=== PATIENT | male | born 1965 | race Caucasian/White ===

== ENCOUNTER 2016-07-08 05:34 | Emergency (ER) | payer MEDICARE, MEDICAID ==
--- NOTE | 2016-07-08 06:21 | ED ---
Abraham Galeano Benjamin, scribed for Rod Del Toro MD on 07/08/16 at 0608 . Laceration/Wound HPI - HPI Summary HPI Summary: 50yo male presents with a small laceration above his right eyebrow from falling off his bed this morning. Hx includes MR,HTN, Raynauds disease, spastic quadriplegia, and seizures. - History of Current Complaint Stated Complaint: FALL Time Seen by Provider: 07/08/16 05:43 Hx Obtained From: Patient Onset/Duration: Still Present Aggravating: Nothing Alleviating: Nothing Timing: Constant Onset Severity: Mild Current Severity: Mild Pain Intensity: 4 Pain Scale Used: 0-10 Numeric Associated Signs & Symptoms: Negative - Allergy/Home Medications Allergies/Adverse Reactions: Allergies Allergy/AdvReac Type Severity Reaction Status Date / Time No Known Allergies Allergy Verified 07/08/16 05:55 PMH/Surg Hx/FS Hx/Imm Hx Infectious Disease History: No Infectious Disease History: Denies: Traveled Outside the [place] in Last 30 Days - Family History Known Family History: Negative: Cardiac Disease, Hypertension Review of Systems Constitutional: Negative Eyes: Negative ENT: Negative Cardiovascular: Negative Respiratory: Negative Gastrointestinal: Negative Genitourinary: Negative Musculoskeletal: Negative Positive: Other - right eyebrow lac Neurological: Negative Psychological: Normal All Other Systems Reviewed And Are Negative: Yes Physical Exam Triage Information Reviewed: Yes Vital Signs On Initial Exam: Initial Vitals Temp Pulse Resp BP Pulse Ox 97.8 F 78 18 124/80 99 07/08/16 05:46 07/08/16 05:46 07/08/16 05:46 07/08/16 05:46 07/08/16 05:46 Vital Signs Reviewed: Yes Completion Of Physical Exam Limited Due To: Dementia, Altered Mental Status Appearance: Positive: Well-Appearing Skin: Positive: Warm, Other - superficial lac above rt eye Head/Face: Positive: Normal Head/Face Inspection Eyes: Positive: FRAN ENT: Positive: Hearing grossly normal Respiratory/Lung Sounds: Positive: Breath Sounds Present Musculoskeletal: Positive: Strength/ROM Intact Diagnostics - Vital Signs Vital Signs Temp Pulse Resp BP Pulse Ox 07/08/16 05:46 97.8 F 78 18 124/80 99 - Laboratory Lab Statement: Any lab studies that have been ordered have been reviewed, and results considered in the medical decision making process. - CT CT Brain CT Interpretation: No Acute Changes - grossly normal CT Interpretation Completed By: ED Physician Laceration Repair Course/Dx - Clinical Impression Provider Diagnoses: Head injury, Laceration of head Discharge - Discharge Plan Condition: Stable Disposition: HOME Patient Education Materials: Laceration (ED), Head Injury (ED) Referrals: Non Staff,Doctor [Primary Care Provider] - The documentation as recorded by the Abraham kumar Benjamin accurately reflects the service I personally performed and the decisions made by , Rod Del Toro MD.
[2016-07-08 06:53] VITALS: BP 128/78
--- NOTE | 2016-07-08 07:59 | RAD ---
INDICATION: Head injury. COMPARISON: There are no prior studies available for comparison. TECHNIQUE: Contiguous axial sections of the brain were obtained from the skull base to the vertex without contrast. The exam is extremely limited due to motion artifact. Large regions of the brain are not imaged on this study. FINDINGS: No mass effect or hemorrhage is seen on the portion of the brain imaged. IMPRESSION: EXTREMELY LIMITED STUDY NOTED ABOVE.
== END 2016-07-08 06:52 | disposition home or self-care (01) ==
LOC: ED 05:34 → EDBD 05:34 → MERGE 05:34 → ED 06:52
DX: S01.111A Laceration without foreign body of right eyelid and periocular area, initial encounter (principal); S09.90XA Unspecified injury of head, initial encounter; W06.XXXA Fall from bed, initial encounter; Y93.9 Activity, unspecified; Y92.9 Unspecified place or not applicable; Y99.9 Unspecified external cause status
CPT/HCPCS: 70450; 99282

== ENCOUNTER 2016-07-25 16:09 | Emergency (ER) | payer MEDICARE ==
[2016-07-25 18:43] VITALS: BP 133/77
[2016-07-25 20:48] LABS: Hematocrit 35 % (42-52); Mean Corpuscular HGB Conc 34 g/dl (31-36); Mean Corpuscular Hemoglobin 35 pg (27-31); Mean Corpuscular Volume 102 fL (80-94); Mean Platelet Volume 7 um3 (7.4-10.4); Red Blood Count 3.45 10^6/ul (4.0-5.4); Red Cell Distribution Width 14 % (10.5-15); White Blood Count 10.9 10^3/ul (3.5-10.8)
[2016-07-25 21:04] LABS: Albumin 4.4 g/dL (3.2-5.2); BUN/Creatinine Ratio 21.4 (8-20); C Reactive Protein 12.77 mg/L (< 5.00); Calcium 9.9 mg/dL (8.6-10.3); EGFR African American 153.5 (>60); EGFR Non-African American 119.4 (>60); Potassium 4.3 mmol/L (3.5-5.0); Total Bilirubin 0.3 mg/dL (0.2-1.0); Total Protein 7.4 g/dL (6.4-8.9)
[2016-07-25 21:45] LABS: TSH (Thyroid Stimulating Horm) 1.09 mcIU/mL (0.34-5.60)
[2016-07-25 21:52] LABS: Carbamazepine 12.5 mcg/mL (4.0-12.0); Lithium 0.96 mmol/L (0.6-1.2)
--- NOTE | 2016-07-25 23:25 | ED ---
Mian Galeano Soohyun, scribed for Johnny Peralta MD on 07/25/16 at 2012 . Neurological HPI - HPI Summary HPI Summary: LEVEL 5 CAVEAT secondary to MR. HPI is obtained from metal grinder present at bedside. Pt is [facility]. This 51 y/o male presents to ED for intermittent seizure activity today around 1200 PM. Cloth Examiner did not witness today's episode, but reports the latest episode lasting 10 seconds a week ago. Cloth Examiner also reports recent med change involving dose increase of [place] Hot[place] and Seroquel in May and decreased dose of Seroquel 2 days ago. Pt is currently pending lithium level evaluation. PMHx is significant for cerebral palsy, MR, and known seizure. Pt is currently on lamotrigine, carbamazapine, triazolam, and lorazepam. NKDA. R/b/a of plan of care involving IV access is discussed with metal grinder. Pt is known to be combative at times, and metal grinder is not confident if pt will be able to tolerate the IV stick at this moment. - History of Current Complaint Chief Complaint: EDSeizure Stated Complaint: SEIZURE ACTIVITY Hx Obtained From: Family/Cloth Examiner Onset/Duration: Sudden Onset Timing: Intermittent Episodes Lasting: - seconds Onset Severity: Mild Current Severity: None Number of Seizures: 1 Neurological Deficit Location: Generalized Pain Intensity: 0 Aggravating: Nothing Alleviating: Spontanious Resolution Associated Signs and Symptoms: Positive: Negative. 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, PICA - Surgical History Surgery Procedure, Year, and Place: bilat hip - Immunization History Date of Tetanus Vaccine: Unk Date of Influenza Vaccine: Unk Infectious Disease History: 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 Denies: Hx Clostridium Difficile, Hx Human Immunodeficiency Virus (HIV), Hx of Known/Suspected MRSA, Hx Shingles, Hx Tuberculosis, Hx Known/Suspected VRE, Hx Known/Suspected VRSA, History Other Infectious Disease, Traveled Outside the [place] in Last 30 Days - Family History Known Family History: Negative: Cardiac Disease, Hypertension - Social History Alcohol Use: None Substance Use Type: Reports: None Smoking Status (MU): Never Smoked Tobacco Review of Systems - ROS Summary Review of Systems Summary: LEVEL 5 CAVEAT secondary to Negative: Fever Negative: Abdominal Pain Neurological: Other - positive for an intermittent seizure episode. Currently resolved. Negative: Anxious, Depressed All Other Systems Reviewed And Are Negative: No Physical Exam Triage Information Reviewed: Yes Vital Signs On Initial Exam: Initial Vitals Temp Pulse Resp BP Pulse Ox 97.6 F 66 16 145/73 100 07/25/16 16:10 07/25/16 16:10 07/25/16 16:10 07/25/16 16:10 07/25/16 16:10 Vital Signs Reviewed: Yes Completion Of Physical Exam Limited Due To: Other - LEVEL 5 CAVEAT secondary to MR Appearance: Positive: Well-Appearing, No Pain Distress Skin: Positive: Warm, Skin Color Reflects Adequate Perfusion, Dry Eyes: Positive: EOMI, FRAN Neck: Positive: Supple, Nontender Respiratory/Lung Sounds: Positive: Clear to Auscultation, Breath Sounds Present Cardiovascular: Positive: RRR, Pulses are Symmetrical in both Upper and Lower Extremities Abdomen Description: Positive: Nontender, No Organomegaly, Soft Musculoskeletal: Positive: Strength/ROM Intact - WALTER Neurological: Positive: Sensory/Motor Intact - WALTER, Alert, Oriented to Person Place, Time Psychiatric: Positive: Affect/Mood Appropriate AVPU Assessment: Alert Diagnostics - Vital Signs Vital Signs Temp Pulse Resp BP Pulse Ox 07/25/16 18:42 97.9 F 63 16 133/77 100 07/25/16 17:19 98.2 F 68 18 139/63 99 07/25/16 16:10 97.6 F 66 16 145/73 100 - Laboratory Lab Results: Lab Results 07/25/16 07/25/16 Range/Units 20:35 20:35 WBC 10.9 H (3.5-10.8) 10^3/ul RBC 3.45 L (4.0-5.4) 10^6/ul Hgb 12.0 L (14.0-18.0) g/dl Hct 35 L (42-52) % MCV 102 H (80-94) fL MCH 35 H (27-31) pg MCHC 34 (31-36) g/dl RDW 14 (10.5-15) % Plt Count 379 (150-450) 10^3/ul MPV 7 L (7.4-10.4) um3 Neut % (Auto) 83.2 H (38-83) % Lymph % (Auto) 9.5 L (25-47) % [place] % (Auto) 6.6 (1-9) % Eos % (Auto) 0.6 (0-6) % Baso % (Auto) 0.1 (0-2) % Absolute Neuts (auto) 9.0 H (1.5-7.7) 10^3/ul Absolute Lymphs (auto) 1.0 (1.0-4.8) 10^3/ul Absolute Monos (auto) 0.7 (0-0.8) 10^3/ul Absolute Eos (auto) 0.1 (0-0.6) 10^3/ul Absolute Basos (auto) 0 (0-0.2) 10^3/ul Absolute Nucleated RBC 0 10^3/ul Nucleated RBC % 0 Sodium 139 (133-145) mmol/L Potassium 4.3 (3.5-5.0) mmol/L Chloride 104 (101-111) mmol/L Carbon Dioxide 31 (22-32) mmol/L Anion Gap 4 (2-11) mmol/L BUN 15 (6-24) mg/dL Creatinine 0.70 (0.67-1.17) mg/dL Est GFR ( Amer) 153.5 (>60) Est GFR (Non-Af Amer) 119.4 (>60) BUN/Creatinine Ratio 21.4 H (8-20) Glucose 111 H (70-100) mg/dL Calcium 9.9 (8.6-10.3) mg/dL Total Bilirubin 0.30 (0.2-1.0) mg/dL AST 15 (13-39) U/L ALT 19 (7-52) U/L Alkaline Phosphatase 83 (34-104) U/L C-Reactive Protein 12.77 H (< 5.00) mg/L Total Protein 7.4 (6.4-8.9) g/dL Albumin 4.4 (3.2-5.2) g/dL Globulin 3.0 (2-4) g/dL Albumin/Globulin Ratio 1.5 (1-3) Lipase 28 (11.0-82.0) U/L TSH 1.09 (0.34-5.60) mcIU/mL Carbamazepine 12.5 H (4.0-12.0) mcg/mL [place] 0.96 (0.6-1.2) mmol/L Result Diagrams: 07/25/16 20:35 07/25/16 20:35 Lab Statement: Any lab studies that have been ordered have been reviewed, and results considered in the medical decision making process. Re-Evaluation - Re-Evaluation First Eval Re-Evaluation Time: 22:33 Comment: MD in room to update metal grinder on bloodwork, lithium level, and carbamazepine level. The plan of care involving evaluation of lamotrigine level is discussed, and metal grinder is agreeable at this time. Course/Dx - Course Assessment/Plan: WELL IN ED. PATIENT DID NOT PROVIDE A URINE SPECIMEN. NO SIGNS OF UTI. DISCHARGE HOME STABLE. - Diagnoses Provider Diagnoses: Epilepsy Discharge - Discharge Plan Condition: Stable Disposition: HOME Patient Education Materials: Epilepsy (ED) Referrals: Rony Selby MD [Primary Care Provider] - Additional Instructions: FOLLOW UP WITH YOUR DOCTOR. RETURN TO THE EMERGENCY DEPARTMENT FOR ANY WORSENING OF YOUR CONDITION OR QUESTIONS OR CONCERNS. The documentation as recorded by the Mian kumar Soohyun accurately reflects the service I personally performed and the decisions made by me, Johnny Peralta MD.
== END 2016-07-25 23:35 | disposition home or self-care (01) ==
LOC: ED 16:09
DX: G40.919 Epilepsy, unspecified, intractable, without status epilepticus (principal)
CPT/HCPCS: 36415; 80053; 80156; 80175; 80178; 83690; 84443; 85025; 86140; 99282

== ENCOUNTER 2016-10-14 15:15 | Emergency (ER) | payer MEDICARE, MEDICAID ==
[2016-10-14] MEDS ORDERED: NS 0.9% 1000 ML* 1,000 ML IV ONE (16:11)
[2016-10-14 16:51] LABS: Hematocrit 26 % (42-52); Hemoglobin 8.4 g/dl (14.0-18.0); Mean Corpuscular HGB Conc 33 g/dl (31-36); Mean Corpuscular Hemoglobin 33 pg (27-31); Mean Corpuscular Volume 101 fL (80-94); Mean Platelet Volume 6 um3 (7.4-10.4); Red Blood Count 2.54 10^6/ul (4.0-5.4); Red Cell Distribution Width 14 % (10.5-15)
[2016-10-14 17:05] LABS: Albumin 4.1 g/dL (3.2-5.2); BUN/Creatinine Ratio 16.9 (8-20); C Reactive Protein 6.79 mg/L (< 5.00); Calcium 9.5 mg/dL (8.6-10.3); EGFR African American 137.5 (>60); EGFR Non-African American 106.9 (>60); Globulin 2.4 g/dL (2-4); Potassium 4.4 mmol/L (3.5-5.0); Total Bilirubin 0.2 mg/dL (0.2-1.0); Total Protein 6.5 g/dL (6.4-8.9)
[2016-10-14 18:21] VITALS: BP 102/41
--- NOTE | 2016-10-15 09:15 | ED ---
Pa Galeano Alfonso, scribed for Jabari Culp MD on 10/14/16 at 1620 . GI/ HPI - HPI Summary HPI Summary: Level 5 caveat due to MR. This patient is a 51 y.o male presenting to [facility] c/o excessive rectal bleeding since last week. His home care consultant reports he dropped about 5 cc of blood in stool this morning. His home care consultant reports he is in pain. Denies a BM today. Sx aggravated and alleviated by nothing. Last week he had an internal hemorrhoid problem and followed up with his PCP. His home care consultant reports the PCP blood work showed anemia. He has limited verbal ability and MR. - History of Current Complaint Chief Complaint: EDBleedingDisorder Time Seen by Provider: 10/14/16 15:54 Stated Complaint: RECTAL BLEEDING Hx Obtained From: Family/Spout Liner Hx From Patient Unobtainable Due To: Other - MR Onset/Duration: Started Weeks Ago, Still Present Timing: Constant Severity: Moderate Current Severity: Moderate Vaginal Bleeding Description: Bright Red Location of Pain: Rectal Pain Characteristics: Unable to describe Associated Signs and Symptoms: Positive: Blood w/Stool, Other: - Internal Hemorrhoids Aggravating Factor(s): Nothing Alleviating Factor(s): Nothing - Allergy/Home Medications Allergies/Adverse Reactions: Allergies Allergy/AdvReac Type Severity Reaction Status Date / Time No Known Allergies Allergy Verified 11/03/15 15:30 PMH/Surg Hx/FS Hx/Imm Hx Endocrine/Hematology History: Denies: Hx Anticoagulant Therapy Cardiovascular History: Reports: Hx Hypertension Neurological History: Reports: Hx Seizures - tegratol, Other Neuro Impairments/ Disorders - CP Psychiatric History: Reports: Other Psychiatric Issues/Disorders - 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, PICA - Surgical History Surgery Procedure, Year, and Place: bilat hip - Immunization History Date of Tetanus Vaccine: Unk Date of Influenza Vaccine: Unk Infectious Disease History: 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 Denies: Hx Clostridium Difficile, Hx Human Immunodeficiency Virus (HIV), Hx of Known/Suspected MRSA, Hx Shingles, Hx Tuberculosis, Hx Known/Suspected VRE, Hx Known/Suspected VRSA, History Other Infectious Disease, Traveled Outside the [place] in Last 30 Days - Family History Known Family History: Negative: Cardiac Disease, Hypertension - Social History Alcohol Use: None Substance Use Type: Reports: None Smoking Status (MU): Never Smoked Tobacco Review of Systems - ROS Summary Review of Systems Summary: Level 5 caveat due to MR. Positive: other - Excessive rectal bleeding All Other Systems Reviewed And Are Negative: No Physical Exam - Summary Physical Exam Summary: Level 5 caveat due to MR. VITAL SIGNS: Reviewed. GENERAL: Patient is a well-developed and nourished male who is lying comfortable in the stretcher. Patient is not in any acute distress. Mental retardation. HEAD AND FACE: Normocephalic/atraumatic EYES: PERRLA EARS: Hearing grossly intact. MOUTH: Dry oral mucosa. NECK: Supple, trachea is midline, no adenopathy, no JVD LUNGS: Clear to auscultation bilaterally. No wheezing or crackles. CVS: Regular rate and rhythm, S1 and S2 present, no murmurs or gallops appreciated. ABDOMEN: Soft, non-tender. RECTAL: Positive gross blood. EXTREMITIES: No edema noted. NEURO: Alert and not oriented. SKIN: Dry and warm Triage Information Reviewed: Yes Vital Signs On Initial Exam: Initial Vitals Temp Pulse Resp BP Pulse Ox 98.1 F 86 18 127/67 98 10/14/16 15:23 10/14/16 15:23 10/14/16 15:23 10/14/16 15:23 10/14/16 15:23 Vital Signs Reviewed: Yes - [place] Coma Scale Coma Scale Total: 15 Diagnostics - Vital Signs Vital Signs Temp Pulse Resp BP Pulse Ox 10/14/16 15:23 98.1 F 86 18 127/67 98 - Laboratory Result Diagrams: 10/14/16 16:40 10/14/16 16:40 Lab Statement: Any lab studies that have been ordered have been reviewed, and results considered in the medical decision making process. GIGU Course/Dx - Course Assessment/Plan: Test results show chronic anemia although it is better than 09/22. The patient is not bleeding profusely. I discussed the case with Dr. Ding who recommends for the patient to be discharged home with follow up tomorrow morning at Dr. Acosta office for further assessment and plan. He is hemodynamically stable and discharged to the shelter. Instructed to return to the ED if the bleeding begins. They understand and agree. - Diagnoses Provider Diagnoses: Internal bleeding hemorrhoids - Physician Notifications Discussed Care Of Patient With: Rod Ding Time Discussed With Above Provider: 18:03 Instructed by Provider To: Have Pt Call For Appt. - Recommends patient be discharged home to follow up at Dr. Morris's office. Discharge - Discharge Plan Condition: Stable Disposition: HOME Patient Education Materials: Rectal Bleeding (ED) Referrals: Rony Selby MD [Primary Care Provider] - 3 Days Roderick Morris MD [Medical Doctor] - 3 Days The documentation as recorded by the Pa kumar Alfonso accurately reflects the service I personally performed and the decisions made by , Jabari Culp MD.
== END 2016-10-14 18:24 | disposition home or self-care (01) ==
LOC: ED 15:15
DX: K62.5 Hemorrhage of anus and rectum (principal)
CPT/HCPCS: 36415; 80053; 82270; 85025; 86140; 99282

== ENCOUNTER 2016-10-16 22:19 | Emergency (ER) | payer MEDICARE, MEDICAID ==
[2016-10-16] MEDS ORDERED: NS 0.9% 1000 ML* 1,000 ML IV ONE (23:11)
[2016-10-17 01:13] LABS: Hematocrit 22 % (42-52); Hemoglobin 7.3 g/dl (14.0-18.0); Mean Corpuscular HGB Conc 33 g/dl (31-36); Mean Corpuscular Hemoglobin 33 pg (27-31); Mean Corpuscular Volume 100 fL (80-94); Mean Platelet Volume 7 um3 (7.4-10.4); Red Cell Distribution Width 14 % (10.5-15); White Blood Count 11.6 10^3/ul (3.5-10.8)
[2016-10-17 01:30] LABS: Albumin 3.6 g/dL (3.2-5.2); BUN/Creatinine Ratio 27.9 (8-20); Carbamazepine 12.7 mcg/mL (4.0-12.0); EGFR African American 179.9 (>60); EGFR Non-African American 139.9 (>60); Globulin 2.5 g/dL (2-4); Lithium 1.19 mmol/L (0.6-1.2); Magnesium 2.3 mg/dL (1.9-2.7); Potassium 4.2 mmol/L (3.5-5.0); Total Bilirubin 0.2 mg/dL (0.2-1.0); Total Protein 6.1 g/dL (6.4-8.9)
[2016-10-17 03:54] LABS: Urine Bacteria Absent (Absent); Urine Bilirubin Negative (Negative); Urine Glucose Negative (Negative); Urine Nitrite Negative (Negative)
--- NOTE | 2016-10-17 04:26 | ED ---
Juan José Galeano Rebecca, scribed for Giovanni Quick MD on 10/16/16 at 2315 . Neurological HPI - HPI Summary HPI Summary: Pt is a 51 y/o M BIBA from [facility] who presents to ED s/p episode of unresponsiveness. Health care worker reports at 2120 he suddenly became unresponsive. Episode lasted for 20 minutes. When asked about episode as compared with prior seizures, reports "usually he makes a duck noise kind of and this evening he was just kind of out of it." Sx resolved spontaneously upon EMS arrival, aggravated by nothing. Denies fever, vomiting, cough. Health care worker is unsure of whether he had experienced a seizure tonight and does not know what type he typically experiences. She reports he is acting at his baseline currently. PMHx seizures. No PMHx UTI, PNA. Takes Somers , Lamictal, Tegretol. Level 5 caveat due to MR. - History of Current Complaint Chief Complaint: EDSeizure Stated Complaint: UNRESPONSIVE Time Seen by Provider: 10/16/16 22:59 Hx Obtained From: Family/Tractor Mechanic - Tractor Mechanic Onset/Duration: Sudden Onset, Resolved Timing: Intermittent Episodes Lasting: - 1 episode lasting 20 minutes Number of Seizures: 1 - Healht care worker unsure if episode was seizure Pain Intensity: 0 Pain Scale Used: 0-10 Numeric Character: Responsiveness - Unresponsive for 20 minutes Episode Lasting: Seconds/Minutes - 20 minutes Number of Episodes: 1 Aggravating: Nothing Alleviating: Spontanious Resolution Associated Signs and Symptoms: Negative: Nausea/Vomiting, Fever - Allergy/Home Medications Allergies/Adverse Reactions: Allergies Allergy/AdvReac Type Severity Reaction Status Date / Time No Known Allergies Allergy Verified 11/03/15 15:30 PMH/Surg Hx/FS Hx/Imm Hx Endocrine/Hematology History: Denies: Hx Anticoagulant Therapy Cardiovascular History: Reports: Hx Hypertension Neurological History: Reports: Hx Seizures - tegratol, Other Neuro Impairments/ Disorders - CP Psychiatric History: Reports: Other Psychiatric Issues/Disorders - 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, PICA - Surgical History Surgery Procedure, Year, and Place: bilat hip - Immunization History Date of Tetanus Vaccine: Unk Date of Influenza Vaccine: Unk Infectious Disease History: No Infectious Disease History: 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 Denies: Hx Clostridium Difficile, Hx Human Immunodeficiency Virus (HIV), Hx of Known/Suspected MRSA, Hx Shingles, Hx Tuberculosis, Hx Known/Suspected VRE, Hx Known/Suspected VRSA, History Other Infectious Disease, Traveled Outside the [place] in Last 30 Days - Family History Known Family History: Negative: Cardiac Disease, Hypertension - Social History Alcohol Use: None Substance Use Type: Reports: None Smoking Status (MU): Never Smoked Tobacco Review of Systems Negative: Fever Negative: Cough Negative: Vomiting Neurological: Other - One 20 minute episode of unresponsiveness 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 The patient is well-nourished in no acute distress and in no acute pain. The skin is warm and dry and skin color reflects adequate perfusion. HEENT: The head is normocephalic and atraumatic. The pupils are equal and reactive. The conjunctivae are clear and without drainage. Nares are patent and without drainage. Mouth reveals dry mucous membranes and the throat is without erythema and exudate. The external ears are intact. The ear canals are patent and without drainage. The tympanic membranes are intact. Neck is supple with full range of motion and non-tender. There are no carotid bruits. There is no neck vein distension. Respiratory: Chest is non-tender. Lungs are clear to auscultation and breath sounds are symmetrical and equal. Cardiovascular: Hear is regular rate and rhythm. There is no murmur or rub auscultated. There is no peripheral edema and pulses are symmetrical and equal. Abdomen: The abdomen is soft and non-tender. Musculoskeletal: There is no back pain noted. Extremities are intact. There is good capillary refill and good skin turgor. There is no peripheral edema or calf tenderness elicited. Neurological: Patient is alert and oriented to person, place and time. The patient has symmetrical motor strength in all four extremities. Psychiatric: The patient does not talk, does not follow commands and does not verbalize. Triage Information Reviewed: Yes Vital Signs On Initial Exam: Initial Vitals Temp Pulse Resp BP Pulse Ox 98.6 F 80 20 144/72 95 10/16/16 22:21 10/16/16 22:21 10/16/16 22:21 10/16/16 22:21 10/16/16 22:21 Vital Signs Reviewed: Yes - [place] Coma Scale Coma Scale Total: 15 Diagnostics - Vital Signs Vital Signs Temp Pulse Resp BP Pulse Ox 10/16/16 23:00 117/64 10/16/16 22:57 73 97 10/16/16 22:56 105/59 10/16/16 22:21 98.6 F 80 20 144/72 95 - Laboratory Lab Results: Lab Results 10/17/16 10/17/16 10/17/16 Range/Units 01:00 01:00 01:00 WBC 11.6 H (3.5-10.8) 10^3/ul RBC 2.20 L (4.0-5.4) 10^6/ul Hgb 7.3 L (14.0-18.0) g/dl Hct 22 L (42-52) % MCV 100 H (80-94) fL MCH 33 H (27-31) pg MCHC 33 (31-36) g/dl RDW 14 (10.5-15) % Plt Count 376 (150-450) 10^3/ul MPV 7 L (7.4-10.4) um3 Neut % (Auto) 83.4 H (38-83) % Lymph % (Auto) 7.8 L (25-47) % [place] % (Auto) 7.8 (1-9) % Eos % (Auto) 0.5 (0-6) % Baso % (Auto) 0.5 (0-2) % Absolute Neuts (auto) 9.6 H (1.5-7.7) 10^3/ul Absolute Lymphs (auto) 0.9 L (1.0-4.8) 10^3/ul Absolute Monos (auto) 0.9 H (0-0.8) 10^3/ul Absolute Eos (auto) 0.1 (0-0.6) 10^3/ul Absolute Basos (auto) 0.1 (0-0.2) 10^3/ul Absolute Nucleated RBC 0 10^3/ul Nucleated RBC % 0 INR (Anticoag Therapy) 0.96 (0.89-1.11) Sodium 138 (133-145) mmol/L Potassium 4.2 (3.5-5.0) mmol/L Chloride 108 (101-111) mmol/L Carbon Dioxide 26 (22-32) mmol/L Anion Gap 4 (2-11) mmol/L BUN 17 (6-24) mg/dL Creatinine 0.61 L (0.67-1.17) mg/dL Est GFR ( Amer) 179.9 (>60) Est GFR (Non-Af Amer) 139.9 (>60) BUN/Creatinine Ratio 27.9 H (8-20) Glucose 139 H (70-100) mg/dL Lactic Acid (0.5-2.0) mmol/L Calcium 9.0 (8.6-10.3) mg/dL Magnesium 2.3 (1.9-2.7) mg/dL Total Bilirubin 0.20 (0.2-1.0) mg/dL AST 22 (13-39) U/L ALT 27 (7-52) U/L Alkaline Phosphatase 87 (34-104) U/L Total Protein 6.1 L (6.4-8.9) g/dL Albumin 3.6 (3.2-5.2) g/dL Globulin 2.5 (2-4) g/dL Albumin/Globulin Ratio 1.4 (1-3) Urine Color Urine Appearance Urine pH (5-9) Ur Specific [place] (1.010-1.030) Urine Protein (Negative) Urine Ketones (Negative) Urine Blood (Negative) Urine Nitrate (Negative) Urine Bilirubin (Negative) Urine Urobilinogen (Negative) Ur Leukocyte Esterase (Negative) Urine WBC (Auto) (Absent) Urine RBC (Auto) (Absent) Ur Squamous Epith Cells (Absent) Urine Bacteria (Absent) Urine Glucose (Negative) Carbamazepine 12.7 H (4.0-12.0) mcg/mL Somers 1.19 (0.6-1.2) mmol/L 10/17/16 10/17/16 Range/Units 01:00 03:12 WBC (3.5-10.8) 10^3/ul RBC (4.0-5.4) 10^6/ul Hgb (14.0-18.0) g/dl Hct (42-52) % MCV (80-94) fL MCH (27-31) pg MCHC (31-36) g/dl RDW (10.5-15) % Plt Count (150-450) 10^3/ul MPV (7.4-10.4) um3 Neut % (Auto) (38-83) % Lymph % (Auto) (25-47) % [place] % (Auto) (1-9) % Eos % (Auto) (0-6) % Baso % (Auto) (0-2) % Absolute Neuts (auto) (1.5-7.7) 10^3/ul Absolute Lymphs (auto) (1.0-4.8) 10^3/ul Absolute Monos (auto) (0-0.8) 10^3/ul Absolute Eos (auto) (0-0.6) 10^3/ul Absolute Basos (auto) (0-0.2) 10^3/ul Absolute Nucleated RBC 10^3/ul Nucleated RBC % INR (Anticoag Therapy) (0.89-1.11) Sodium (133-145) mmol/L Potassium (3.5-5.0) mmol/L Chloride (101-111) mmol/L Carbon Dioxide (22-32) mmol/L Anion Gap (2-11) mmol/L BUN (6-24) mg/dL Creatinine (0.67-1.17) mg/dL Est GFR ( Amer) (>60) Est GFR (Non-Af Amer) (>60) BUN/Creatinine Ratio (8-20) Glucose (70-100) mg/dL Lactic Acid 1.2 (0.5-2.0) mmol/L Calcium (8.6-10.3) mg/dL Magnesium (1.9-2.7) mg/dL Total Bilirubin (0.2-1.0) mg/dL AST (13-39) U/L ALT (7-52) U/L Alkaline Phosphatase (34-104) U/L Total Protein (6.4-8.9) g/dL Albumin (3.2-5.2) g/dL Globulin (2-4) g/dL Albumin/Globulin Ratio (1-3) Urine Color Yellow Urine Appearance Cloudy Urine pH 6.0 (5-9) Ur Specific [place] 1.026 (1.010-1.030) Urine Protein Negative (Negative) Urine Ketones Negative (Negative) Urine Blood 1+ H (Negative) Urine Nitrate Negative (Negative) Urine Bilirubin Negative (Negative) Urine Urobilinogen Negative (Negative) Ur Leukocyte Esterase Trace H (Negative) Urine WBC (Auto) Trace(0-5/hpf) (Absent) Urine RBC (Auto) Trace(0-2/hpf) (Absent) Ur Squamous Epith Cells Present H (Absent) Urine Bacteria Absent (Absent) Urine Glucose Negative (Negative) Carbamazepine (4.0-12.0) mcg/mL Somers (0.6-1.2) mmol/L Result Diagrams: 10/17/16 01:00 10/17/16 01:00 Lab Statement: Any lab studies that have been ordered have been reviewed, and results considered in the medical decision making process. Re-Evaluation - Re-Evaluation First Eval Re-Evaluation Time: 04:13 Change: Unchanged Comment: Reviewed labs with the pt's health care worker. Course/Dx - Course Assessment/Plan: Pt is a 51 y/o M BIBA from [facility] who presents to ED s/p episode of unresponsiveness at 2120 that lasted for 20 minutes. Denies fever, vomiting, cough. Health care worker is unsure of whether he had experienced a seizure tonight and does not know what type he typically experiences. She reports he is acting at his baseline currently. PMHx seizures. No PMHx UTI, PNA. Takes Somers, Lamictal, Tegretol. Level 5 caveat due to MR. Pt received Ns IV in the course of the ED. Pt will be D/C with Dx of rectal bleed, anemia and seizure disorder. - Differential Dx Differential Diagnoses Neuro: Positive: Seizure Disorder, Other - rectal bleed, uti, - Diagnoses Provider Diagnoses: Rectal bleed, Seizure disorder, Anemia Discharge - Discharge Plan Condition: Stable Disposition: HOME Patient Education Materials: Rectal Bleeding (ED), Anemia (ED), Recurrent Seizures in Adults (ED) Referrals: Rony Selby MD [Primary Care Provider] - 3 Days The documentation as recorded by the Juan José kumar Rebecca accurately reflects the service I personally performed and the decisions made by me, Giovanni Quick MD.
[2016-10-17 05:27] VITALS: BP 105/53
== END 2016-10-17 04:55 | disposition home or self-care (01) ==
LOC: ED 22:19
DX: K62.5 Hemorrhage of anus and rectum (principal); G40.909 Epilepsy, unspecified, not intractable, without status epilepticus; D64.9 Anemia, unspecified; I10 Essential (primary) hypertension; Z86.19 Personal history of other infectious and parasitic diseases
CPT/HCPCS: 36415; 80053; 80156; 80175; 80178; 81003; 81015; 83605; 83735; 85025; 85610; 87086; 96360; 99282; 99283

== ENCOUNTER 2016-10-25 08:34 | Day surgery (SDC) | payer MEDICARE, MEDICAID ==
[~2016-10-25 08:34] MED LIST: Buffered Lidocaine 0.9% SYRIN* 5 ML/SYR SYRINGE INTRADERM ONE; Famotidine IV* 10 MG/ML 2 ML (20 mg) IV ONE
[2016-10-25] MEDS ORDERED: Famotidine TAB* 20 MG ONE (08:39)
[2016-10-25] MEDS ORDERED: ceFOXitin 2 GM IVPREMIX* 2 GM/50 ML BAG ONE (08:39)
[2016-10-25] MEDS ORDERED: Buffered Lidocaine 0.9% SYRIN* 5 ML/SYR SYRINGE ONE (08:39)
[2016-10-25] MEDS ORDERED: Famotidine IV* 10 MG/ML 2 ML (20 mg) ONE (09:21)
[2016-10-25] MEDS ORDERED: Midazolam* 1 MG/ML 5 ML VIAL (5 MG) ONE (10:31)
[2016-10-25] MEDS ORDERED: fentaNYL* 50 MCG/ML 2 ML VIAL (100 MCG VIAL) ONE (10:31)
[2016-10-25] MEDS ORDERED: Sterile Water for Inj* 10 ML ONE (10:33)
[2016-10-25] MEDS ORDERED: Chloroprocaine 2%* 20 ML VIAL ONE (10:33)
[2016-10-25] MEDS ORDERED: Propofol* 10 MG/ML 20 ML BTL IV PUSH ONE (10:57)
[2016-10-25] MEDS ORDERED: fentaNYL* 50 MCG/ML 2 ML VIAL (100 MCG VIAL) IV PRN (11:03)
[2016-10-25] MEDS ORDERED: Lidocaine 2% JELLY* 6 ML JELLY TOPICAL ONE (11:11)
--- NOTE | 2016-10-25 11:19 | SURGPN ---
Brief Operative Note - Surgery Procedures: Procedures OPERATIVE REPORT PRE-OP: Internal hemorrhoids, rectal bleeding POST-OP: Same PROCEDURE: Anorectal exam under anesthesia, banding of internal hemorrhoid SURGEON: MD Arturo ANESTHESIA:Local with Spinal Dr. Pena ASST: none IVF: min EBL:min SPECIMEN: none DRAIN: none WOUND CLASS: 4 COMPLICATIONS: none TO PACU
[2016-10-25 12:29] VITALS: BP 98/58
--- NOTE | 2016-10-26 14:48 | OP ---
DATE OF OPERATION: 10/25/16 [facility] DATE OF : 67 SURGEON: Roderick Morris MD. NANOTECHNICIAN: None. ANESTHESIOLOGIST: Dr. Hinojosa ANESTHESIA: Spinal with local anesthetic. PRE-OP DIAGNOSES: 1. Rectal bleeding. 2. Internal hemorrhoids. POST-OP DIAGNOSIS: Rectal bleeding. OPERATIVE PROCEDURE: Anorectal exam under anesthesia with placement of internal hemorrhoid band. ESTIMATED BLOOD LOSS: Minimal. SPECIMENS: None. COMPLICATIONS: None. BRIEF HISTORY: Mr. Jabari Headley is a 51-year-old gentleman who is a resident of the [facility], who is both mentally and physically challenged, who has had some rectal bleeding after bowel movements. In the office on exam, he has large internal hemorrhoids which were banded. He has had persistent bleeding and at this point, he is being taken to the operating room for an exam under anesthesia. This was all discussed with the patient[place], and the plan at this point was to proceed with exam and an additional banding. The family was not comfortable proceeding with a more formal hemorrhoidectomy at this point, and this was thus discussed and clearly outlined in a preoperatively transcribed history and physical. DESCRIPTION OF PROCEDURE: Written informed consent was obtained. The patient was taken to the operating room. Anesthesia was administered. He was placed in a prone Jackknife position. Sequential compression devices and warming blanket were applied. The perianal area was prepped and draped in the usual sterile fashion. Time out verification was completed. Additionally 0.5% Marcaine with epinephrine was infiltrated in the normal fashion for a perianal block. Digital rectal exam showed decreased tone. There was some external hemorrhoidal pedicles with the skin and some bluish color but no evidence of ulceration or excoriation. On inserting a retractor, it was obvious that there were three pedicles where the previous bands had been placed and these were somewhat ulcerated, were healing nicely, but there was in this area, mainly anteriorly on both lateral sides showed no evidence of significant internal hemorrhoidal disease. The distal rectal mucosa appeared to be normal. There was however, a more posterior and slightly to the right, large internal pedicle. I did place several bands on this and this appeared to constrict the neck of the pedicle quite nicely. At this point, I did not feel there is any further hemorrhoids that required banding or intervention and some lidocaine jelly was inserted into the anal canal. Dry sterile dressing was applied. The patient tolerated the procedure well, was taken to recovery room in stable condition. [id number]/[facility] #: [id number] PAM
== END 2016-10-25 12:20 | disposition home or self-care (01) ==
LOC: OR 08:34
PROVIDERS: ATTEND Surgery
DX: K64.1 Second degree hemorrhoids (principal); K62.5 Hemorrhage of anus and rectum; G80.9 Cerebral palsy, unspecified
CPT/HCPCS: A9270-GY; J0694; J2250; J2400; J2704; J3010

== ENCOUNTER 2016-10-27 13:09 | Emergency (ER) | payer MEDICARE, MEDICAID ==
[2016-10-27] MEDS ORDERED: Ondansetron INJ* 2 MG/ML VIAL IV ONE (14:03)
[2016-10-27 14:52] LABS: Hematocrit 27 % (42-52); Hemoglobin 8.5 g/dl (14.0-18.0); Mean Corpuscular HGB Conc 32 g/dl (31-36); Mean Corpuscular Hemoglobin 31 pg (27-31); Mean Corpuscular Volume 96 fL (80-94); Mean Platelet Volume 6 um3 (7.4-10.4); Red Blood Count 2.78 10^6/ul (4.0-5.4); Red Cell Distribution Width 14 % (10.5-15); White Blood Count 12.2 10^3/ul (3.5-10.8)
[2016-10-27 15:05] LABS: Albumin 3.9 g/dL (3.2-5.2); BUN/Creatinine Ratio 21.5 (8-20); C Reactive Protein 7.38 mg/L (< 5.00); Calcium 9.5 mg/dL (8.6-10.3); EGFR African American 167.2 (>60); Potassium 4.3 mmol/L (3.5-5.0); Total Bilirubin 0.2 mg/dL (0.2-1.0); Total Protein 6.9 g/dL (6.4-8.9)
--- NOTE | 2016-10-27 15:26 | RAD ---
Indication: Head injury. CT of the brain was performed without IV contrast. Comparison is made with previous exam dated October 06, 2016, September 06, 2014. Ventricular structures are midline. No midline shift is noted. The extra-axial spaces are unremarkable. Hydrocephalus is noted. There appears to be absence of the corpus callosum. Encephalomalacia involving the deep white matter of the parietal lobes bilaterally. No acute hemorrhage is noted. 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 Deep white matter change is noted in the parietal lobes bilaterally which are similar to that present on September 06, 2014. No definite hemorrhage is noted.
[2016-10-27 16:03] VITALS: BP 100/67
--- NOTE | 2016-10-27 23:46 | ED ---
Pa Galeano Alfonso, scribed for Tigre Fields MD on 10/27/16 at 1409 . Head Injury - HPI Summary HPI Summary: This patient is a 51 year old male BIBA to [facility] for a head injury last night. He fell while getting into a wheelchair and hit his left forehead. He was wearing his helmet during this accident. Symptoms aggravated and alleviated by nothing. The patient state "I am feeling sick." He reports 0/10 pain severity. His chest painting leader reports he slept well last night but was agitated this morning. They state he vomited earlier today, is nauseous, and has abdominal pain. They deny LOC and hematemesis. PMHx of hemorrhoids and anemia. Lives in a assisted. - History Of Current Complaint Chief Complaint: EDHeadInjury Stated Complaint: FALL/NAUSEA/VOMITING Time Seen by Provider: 10/27/16 13:40 Hx Obtained From: Patient, Family/Operator Vacuum - Operator Vacuum Mechanism Of Injury: Blunt Trauma - Fell while getting into a wheelchair and hit his head above the left eye. He was wearing his helmet during this accident. Onset/Duration: Started Days Ago - Last night, Traumatic Severity Currently: Mild Severity Initially: Mild Pain Intensity: 0 Pain Scale Used: 0-10 Numeric Location of Head Injury: Frontal - left forehead Location: Discrete At: - Left forehead Aggravating Factor(s): Other: - Nothing Alleviating Factor(s): Other: - Nothing Associated Signs And Symptoms: Nausea, Vomiting, Other: - Positive abdominal pain; negative LOC - Allergies/Home Medications Allergies/Adverse Reactions: Allergies Allergy/AdvReac Type Severity Reaction Status Date / Time No Known Allergies Allergy Verified 10/25/16 09:04 Home Medications: Home Medications Benzocaine (Dental) [Orabase-B] 1 pst TOPICAL PCHS PRN 10/27/16 [History Confirmed 10/27/16] Bisacodyl EC TAB* [Dulcolax EC TAB*] 10 mg PO EVERY OTHER DAY 10/27/16 [History Confirmed 10/27/16] [place] Carbonate TAB* 600 mg PO BID 10/27/16 [History Confirmed 10/27/16] Mineral Oil 3 drop BOTH EARS Q3D PRN 10/27/16 [History Confirmed 10/27/16] Polyethylene Glycol 3350* [Miralax*] 17 gm PO DAILY 10/27/16 [History Confirmed 10/27/16] QUEtiapine TAB* [SEROquel TAB*] 150 mg PO BEDTIME 10/27/16 [History Confirmed ] carBAMazepine ER TAB(*) [TEGretol Xr TAB(*)] 400 mg PO TID 10/27/16 [History Confirmed 10/27/16] lamoTRIgine TAB(*) [LaMICtal TAB(*)] 50 mg PO BEDTIME 10/27/16 [History Confirmed 10/27/16] lamoTRIgine TAB(*) [LaMICtal TAB(*)] 200 mg PO BID 10/27/16 [History Confirmed 10/27/16] PMH/Surg Hx/FS Hx/Imm Hx Endocrine/Hematology History: Reports: Hx Anemia - RECENT ANEMIA, BLOOD LOSS DUE TO HEMORRHOIDS Denies: Hx Anticoagulant Therapy Cardiovascular History: Reports: Hx Hypertension, Other Cardiovascular Problems/ Disorders - Raynaud's disease GI History: Reports: Other GI Disorders - chronic constipation and hemorrhoids Musculoskeletal History: Reports: Hx Arthritis - UNSURE, Other Musculoskeletal History - CP, VERY RIGID MOVEMENTS, TREMORS LEFT ARM, needs assist w/stairs Sensory History: Denies: Hx Contacts or Glasses, Hx Hearing Aid Opthamlomology History: Denies: Hx Contacts or Glasses Neurological History: Reports: Hx Seizures - tegratol, Other Neuro Impairments/ Disorders - CP Comment Only: Hx Nerve Disease - Cerebral Palsy, right eye strabismus Psychiatric History: Reports: Other Psychiatric Issues/Disorders - 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, PICA - Surgical History Surgery Procedure, Year, and Place: bilat hip Hx Anesthesia Reactions: No - Immunization History Date of Tetanus Vaccine: Unk Date of Influenza Vaccine: Unk Infectious Disease History: No Infectious Disease History: 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 Denies: Hx Clostridium Difficile, Hx Human Immunodeficiency Virus (HIV), Hx of Known/Suspected MRSA, Hx Shingles, Hx Tuberculosis, Hx Known/Suspected VRE, Hx Known/Suspected VRSA, History Other Infectious Disease, Traveled Outside the [place] in Last 30 Days - Family History Known Family History: Negative: Cardiac Disease, Hypertension - Social History Alcohol Use: None Substance Use Type: Reports: None Smoking Status (MU): Never Smoked Tobacco Review of Systems Positive: Abdominal Pain, Vomiting, Nausea, Other - Negative hematemesis Positive: Other - Positive abrasion over left forehead Neurological: Other - Negative LOC; positive agitation this morning All Other Systems Reviewed And Are Negative: Yes Physical Exam Triage Information Reviewed: Yes Vital Signs On Initial Exam: Initial Vitals Temp Pulse Resp BP Pulse Ox 97.8 F 74 16 101/65 96 10/27/16 13:24 10/27/16 13:24 10/27/16 13:24 10/27/16 13:24 10/27/16 13:24 Vital Signs Reviewed: Yes Appearance: Positive: Well-Appearing, No Pain Distress Skin: Positive: Warm, Skin Color Reflects Adequate Perfusion, Dry, Other - Abrasion over left forehead Head/Face: Positive: Normal Head/Face Inspection Eyes: Positive: Normal ENT: Positive: Normal ENT inspection Neck: Positive: Supple, Nontender Respiratory/Lung Sounds: Positive: Clear to Auscultation, Breath Sounds Present Cardiovascular: Positive: RRR Abdomen Description: Positive: Nontender, Soft Bowel Sounds: Positive: Present Musculoskeletal: Positive: Normal Neurological: Positive: Normal, Sensory/Motor Intact, Alert, Oriented to Person Place, Time, CN Intact II-III Psychiatric: Positive: Normal - [place] Coma Scale Coma Scale Total: 13 Diagnostics - Vital Signs Vital Signs Temp Pulse Resp BP Pulse Ox 10/27/16 13:24 97.8 F 74 16 101/65 96 - Laboratory Lab Results: Lab Results 10/27/16 10/27/16 Range/Units 14:32 14:32 WBC 12.2 H (3.5-10.8) 10^3/ul RBC 2.78 L (4.0-5.4) 10^6/ul Hgb 8.5 L (14.0-18.0) g/dl Hct 27 L (42-52) % MCV 96 H (80-94) fL MCH 31 (27-31) pg MCHC 32 (31-36) g/dl RDW 14 (10.5-15) % Plt Count 674 H D (150-450) 10^3/ul MPV 6 L (7.4-10.4) um3 Neut % (Auto) 87.2 H (38-83) % Lymph % (Auto) 5.0 L (25-47) % [place] % (Auto) 6.7 (1-9) % Eos % (Auto) 0.6 (0-6) % Baso % (Auto) 0.5 (0-2) % Absolute Neuts (auto) 10.7 H (1.5-7.7) 10^3/ul Absolute Lymphs (auto) 0.6 L (1.0-4.8) 10^3/ul Absolute Monos (auto) 0.8 (0-0.8) 10^3/ul Absolute Eos (auto) 0.1 (0-0.6) 10^3/ul Absolute Basos (auto) 0.1 (0-0.2) 10^3/ul Absolute Nucleated RBC 0 10^3/ul Nucleated RBC % 0 Sodium 134 (133-145) mmol/L Potassium 4.3 (3.5-5.0) mmol/L Chloride 102 (101-111) mmol/L Carbon Dioxide 29 (22-32) mmol/L Anion Gap 3 (2-11) mmol/L BUN 14 (6-24) mg/dL Creatinine 0.65 L (0.67-1.17) mg/dL Est GFR ( Amer) 167.2 (>60) Est GFR (Non-Af Amer) 130.0 (>60) BUN/Creatinine Ratio 21.5 H (8-20) Glucose 134 H (70-100) mg/dL Calcium 9.5 (8.6-10.3) mg/dL Total Bilirubin 0.20 (0.2-1.0) mg/dL AST 14 (13-39) U/L ALT 17 (7-52) U/L Alkaline Phosphatase 101 (34-104) U/L C-Reactive Protein 7.38 H (< 5.00) mg/L Total Protein 6.9 (6.4-8.9) g/dL Albumin 3.9 (3.2-5.2) g/dL Globulin 3.0 (2-4) g/dL Albumin/Globulin Ratio 1.3 (1-3) Result Diagrams: 10/27/16 14:32 10/27/16 14:32 Lab Statement: Any lab studies that have been ordered have been reviewed, and results considered in the medical decision making process. 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 Deep white matter change is noted in the parietal lobes bilaterally which are similar to that present on September 06, 2014. No definite hemorrhage is noted. CT Interpretation Completed By: Radiologist Re-Evaluation - Re-Evaluation 1534 Re-Evaluation Time: 15:34 Comment: Discussed results and discharge with chest painting leader. Head Injury Course/Dx Course Of Treatment: Jabari's exam and W/U were unremarkable and I recommended they keep a close eye on him. - Diagnoses Provider Diagnoses: Head injury Discharge - Discharge Plan Condition: Stable Disposition: HOME Patient Education Materials: Head Injury (ED) Referrals: Rony Selby MD [Primary Care Provider] - 3 Days The documentation as recorded by the Pa kumar Alfonso accurately reflects the service I personally performed and the decisions made by me, Tigre Fields MD.
== END 2016-10-27 16:02 | disposition home or self-care (01) ==
LOC: ED 13:09
DX: S09.90XA Unspecified injury of head, initial encounter (principal); R10.9 Unspecified abdominal pain; R11.2 Nausea with vomiting, unspecified; W19.XXXA Unspecified fall, initial encounter; Y93.9 Activity, unspecified; Y92.9 Unspecified place or not applicable; Y99.9 Unspecified external cause status
CPT/HCPCS: 36415; 70450; 80053; 85025; 86140; 99282; J2405

== ENCOUNTER 2016-10-30 09:01 | Emergency (ER) | payer MEDICARE, MEDICAID ==
[2016-10-30] MEDS ORDERED: LORazepam INJ* 2 MG/ML 1 ML VIAL IV ONE (09:34)
[2016-10-30 10:06] LABS: Hematocrit 28 % (42-52); Hemoglobin 8.8 g/dl (14.0-18.0); Mean Corpuscular HGB Conc 32 g/dl (31-36); Mean Corpuscular Hemoglobin 31 pg (27-31); Mean Corpuscular Volume 97 fL (80-94); Mean Platelet Volume 6 um3 (7.4-10.4); Red Blood Count 2.85 10^6/ul (4.0-5.4); Red Cell Distribution Width 14 % (10.5-15); White Blood Count 6.7 10^3/ul (3.5-10.8)
[2016-10-30 10:21] LABS: Albumin 3.8 g/dL (3.2-5.2); BUN/Creatinine Ratio 22.7 (8-20); Calcium 9.2 mg/dL (8.6-10.3); EGFR African American 164.3 (>60); EGFR Non-African American 127.8 (>60); Globulin 2.8 g/dL (2-4); Potassium 3.9 mmol/L (3.5-5.0); Total Bilirubin 0.3 mg/dL (0.2-1.0); Total Protein 6.6 g/dL (6.4-8.9)
--- NOTE | 2016-10-30 12:17 | RAD ---
INDICATION: Seizure. COMPARISON: Comparison is made with a prior CT of the brain from October 27, 2016. Correlation is also made with a study from September 11, 2015. TECHNIQUE: Contiguous axial sections of the brain were obtained from the skull base to the vertex without contrast. FINDINGS: The posterior aspects of the lateral ventricles are distended and unchanged from prior studies. There appears to be encephalomalacia in the posterior parietal lobes which is unchanged. 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 No significant focal abnormality or mass effect is seen. There is no evidence for hemorrhage. No significant focal osseous abnormality is seen. The visualized portion of the paranasal sinuses and mastoid air cells appear clear. IMPRESSION: NO EVIDENCE FOR GROSS ACUTE INFARCT, MASS EFFECT OR HEMORRHAGE.
[2016-10-30 13:45] VITALS: BP 119/64
--- NOTE | 2016-10-30 15:12 | ED ---
Scar Galeano Auryana, scribed for Tigre Fields MD on 10/30/16 at 0920 . Neurological HPI - HPI Summary HPI Summary: 51 year old male presents to ED with seizure like symptoms. 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 Reports patient did receive morning medications. Patient was previously seen in ED for head injury (10/27/16 ) and also was seen a few weeks ago for similar symptoms. PMHx is significant for cerebral palsy, and seizures. Patient is a level 5 caveat due to non-verbal status. 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 Negative: Fever Similar Episode/Dx as: yes see hpi Related Hx: Seizure - history - Allergy/Home Medications Allergies/Adverse Reactions: Allergies Allergy/AdvReac Type Severity Reaction Status Date / Time No Known Allergies Allergy Verified 10/25/16 09:04 PMH/Surg Hx/FS Hx/Imm Hx Endocrine/Hematology History: Reports: Hx Anemia - RECENT ANEMIA, BLOOD LOSS DUE TO HEMORRHOIDS Denies: Hx Anticoagulant Therapy Cardiovascular History: Reports: Hx Hypertension, Other Cardiovascular Problems/ Disorders - Raynaud's disease GI History: Reports: Other GI Disorders - chronic constipation and hemorrhoids Musculoskeletal History: Reports: Hx Arthritis - UNSURE, Other Musculoskeletal History - CP, VERY RIGID MOVEMENTS, TREMORS LEFT ARM, needs assist w/stairs Sensory History: Denies: Hx Contacts or Glasses, Hx Hearing Aid Opthamlomology History: Denies: Hx Contacts or Glasses Neurological History: Reports: Hx Seizures - tegratol, Other Neuro Impairments/ Disorders - CP Comment Only: Hx Nerve Disease - Cerebral Palsy, right eye strabismus Psychiatric History: Reports: Other Psychiatric Issues/Disorders - 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, PICA - Surgical History Surgery Procedure, Year, and Place: bilat hip Hx Anesthesia Reactions: No - Immunization History Date of Tetanus Vaccine: Unk Date of Influenza Vaccine: Unk Infectious Disease History: No Infectious Disease History: 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 Denies: Hx Clostridium Difficile, Hx Human Immunodeficiency Virus (HIV), Hx of Known/Suspected MRSA, Hx Shingles, Hx Tuberculosis, Hx Known/Suspected VRE, Hx Known/Suspected VRSA, History Other Infectious Disease, Traveled Outside the [place] in Last 30 Days - Family History Known Family History: Negative: Cardiac Disease, Hypertension - Social History Occupation: Disabled Lives: Assisted Living Alcohol Use: None Substance Use Type: Reports: None Smoking Status (MU): Never Smoked Tobacco Review of Systems - ROS Summary Review of Systems Summary: Patient is a level 5 caveat due to non-verbal status. 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 Negative: Fever Neurological: Other - tremors and eyes rolling in the back of his head All Other Systems Reviewed And Are Negative: No Physical Exam Triage Information Reviewed: Yes Vital Signs On Initial Exam: Initial Vitals Temp Pulse Resp BP Pulse Ox 98.1 F 68 18 128/64 96 10/30/16 09:04 10/30/16 09:04 10/30/16 09:04 10/30/16 09:04 10/30/16 09:04 Vital Signs Reviewed: Yes Completion Of Physical Exam Limited Due To: Level 5 - LEVEL 5 CAVEAT DUE TO NONVERBAL STATUS Appearance: Positive: No Pain Distress, Well-Nourished Skin: Positive: Warm, Skin Color Reflects Adequate Perfusion, Dry Head/Face: Positive: Normal Head/Face Inspection Eyes: Positive: Normal Neck: Positive: Supple Respiratory/Lung Sounds: Positive: Clear to Auscultation, Breath Sounds Present Cardiovascular: Positive: RRR Abdomen Description: Positive: Soft Musculoskeletal: Positive: Normal, Strength/ROM Intact, Other - tremors, at times seems to make purposeful movements Neurological: Positive: Other - eyes roll back. Negative: Alert, Oriented to Person Place, Time Diagnostics - Vital Signs Vital Signs Temp Pulse Resp BP Pulse Ox 10/30/16 09:12 97.8 F 66 16 128/64 96 10/30/16 09:04 98.1 F 68 18 128/64 96 - Laboratory Lab Results: Lab Results 10/30/16 10/30/16 10/30/16 Range/Units 09:58 09:58 09:58 WBC 6.7 (3.5-10.8) 10^3/ul RBC 2.85 L (4.0-5.4) 10^6/ul Hgb 8.8 L (14.0-18.0) g/dl Hct 28 L (42-52) % MCV 97 H (80-94) fL MCH 31 (27-31) pg MCHC 32 (31-36) g/dl RDW 14 (10.5-15) % Plt Count 697 H (150-450) 10^3/ul MPV 6 L (7.4-10.4) um3 Neut % (Auto) 69.3 (38-83) % Lymph % (Auto) 18.2 L (25-47) % Vermillion % (Auto) 9.4 H (1-9) % Eos % (Auto) 2.7 (0-6) % Baso % (Auto) 0.4 (0-2) % Absolute Neuts (auto) 4.7 (1.5-7.7) 10^3/ul Absolute Lymphs (auto) 1.2 (1.0-4.8) 10^3/ul Absolute Monos (auto) 0.6 (0-0.8) 10^3/ul Absolute Eos (auto) 0.2 (0-0.6) 10^3/ul Absolute Basos (auto) 0 (0-0.2) 10^3/ul Absolute Nucleated RBC 0 10^3/ul Nucleated RBC % 0 INR (Anticoag Therapy) 0.94 (0.89-1.11) Sodium 135 (133-145) mmol/L Potassium 3.9 (3.5-5.0) mmol/L Chloride 105 (101-111) mmol/L Carbon Dioxide 26 (22-32) mmol/L Anion Gap 4 (2-11) mmol/L BUN 15 (6-24) mg/dL Creatinine 0.66 L (0.67-1.17) mg/dL Est GFR ( Amer) 164.3 (>60) Est GFR (Non-Af Amer) 127.8 (>60) BUN/Creatinine Ratio 22.7 H (8-20) Glucose 125 H (70-100) mg/dL Lactic Acid (0.5-2.0) mmol/L Calcium 9.2 (8.6-10.3) mg/dL Magnesium 2.0 (1.9-2.7) mg/dL Total Bilirubin 0.30 (0.2-1.0) mg/dL AST 12 L (13-39) U/L ALT 17 (7-52) U/L Alkaline Phosphatase 95 (34-104) U/L Total Protein 6.6 (6.4-8.9) g/dL Albumin 3.8 (3.2-5.2) g/dL Globulin 2.8 (2-4) g/dL Albumin/Globulin Ratio 1.4 (1-3) Carbamazepine 14.0 H (4.0-12.0) mcg/mL 10/30/16 Range/Units 09:58 WBC (3.5-10.8) 10^3/ul RBC (4.0-5.4) 10^6/ul Hgb (14.0-18.0) g/dl Hct (42-52) % MCV (80-94) fL MCH (27-31) pg MCHC (31-36) g/dl RDW (10.5-15) % Plt Count (150-450) 10^3/ul MPV (7.4-10.4) um3 Neut % (Auto) (38-83) % Lymph % (Auto) (25-47) % Vermillion % (Auto) (1-9) % Eos % (Auto) (0-6) % Baso % (Auto) (0-2) % Absolute Neuts (auto) (1.5-7.7) 10^3/ul Absolute Lymphs (auto) (1.0-4.8) 10^3/ul Absolute Monos (auto) (0-0.8) 10^3/ul Absolute Eos (auto) (0-0.6) 10^3/ul Absolute Basos (auto) (0-0.2) 10^3/ul Absolute Nucleated RBC 10^3/ul Nucleated RBC % INR (Anticoag Therapy) (0.89-1.11) Sodium (133-145) mmol/L Potassium (3.5-5.0) mmol/L Chloride (101-111) mmol/L Carbon Dioxide (22-32) mmol/L Anion Gap (2-11) mmol/L BUN (6-24) mg/dL Creatinine (0.67-1.17) mg/dL Est GFR ( Amer) (>60) Est GFR (Non-Af Amer) (>60) BUN/Creatinine Ratio (8-20) Glucose (70-100) mg/dL Lactic Acid 1.1 (0.5-2.0) mmol/L Calcium (8.6-10.3) mg/dL Magnesium (1.9-2.7) mg/dL Total Bilirubin (0.2-1.0) mg/dL AST (13-39) U/L ALT (7-52) U/L Alkaline Phosphatase (34-104) U/L Total Protein (6.4-8.9) g/dL Albumin (3.2-5.2) g/dL Globulin (2-4) g/dL Albumin/Globulin Ratio (1-3) Carbamazepine (4.0-12.0) mcg/mL Result Diagrams: 10/30/16 09:58 10/30/16 09:58 Lab Statement: Any lab studies that have been ordered have been reviewed, and results considered in the medical decision making process. - CT BRAIN CT Interpretation: No Acute Changes CT Interpretation Completed By: Radiologist Re-Evaluation - Re-Evaluation First Eval Re-Evaluation Time: 11:48 - assess symptoms Course/Dx - Course Course Of Treatment: Jabari remained seizure free here. Because of his recent head trauma, a CT was repeated but negative for obvious injury. His tegretol is therapeutic and I will send him back to [facility]. - Diagnoses Provider Diagnoses: Breakthrough seizure Discharge - Discharge Plan Condition: Stable Disposition: HOME Referrals: Rony Selby MD [Primary Care Provider] - 3 Days The documentation as recorded by the Scar kumar Auryana accurately reflects the service I personally performed and the decisions made by , Tigre Fields MD.
== END 2016-10-30 13:46 | disposition home or self-care (01) ==
LOC: ED 09:01
DX: G40.909 Epilepsy, unspecified, not intractable, without status epilepticus (principal); G80.9 Cerebral palsy, unspecified; I10 Essential (primary) hypertension; I73.00 Raynaud's syndrome without gangrene; B19.10 Unspecified viral hepatitis B without hepatic coma
CPT/HCPCS: 36415; 70450; 80053; 80156; 83605; 83735; 85025; 85610; 96374; 99283; J2060

== ENCOUNTER → 2016-10-31 16:27 | Emergency (ER) | payer MEDICARE, MEDICAID ==
[2016-10-31 16:31] VITALS: BP 142/77
--- NOTE | 2016-10-31 17:37 | RAD ---
INDICATION: Head injury. COMPARISON: Comparison is made with a prior CT of the brain from October 30, 2016. TECHNIQUE: Contiguous axial sections of the brain were obtained from the skull base to the vertex without contrast. The patient was unable to be positioned for the standard images limiting the study. FINDINGS: The posterior aspects of the lateral ventricles are distended and unchanged. 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 There are areas of encephalomalacia present within the frontal and parietal lobes which are unchanged. No other focal abnormality or mass effect is seen. There is no evidence for hemorrhage. No fracture is seen. The visualized portion of the paranasal sinuses and mastoid air cells appear clear. IMPRESSION: LIMITED STUDY, NO EVIDENCE FOR ACUTE INTRACRANIAL ABNORMALITY.
--- NOTE | 2016-10-31 17:37 | ED ---
Head Injury - HPI Summary HPI Summary: 51M presents with head injury today. He got it from standing up and his wheelchair slipped out from under him and he hit his head on a table. They deny any LOC or vomiting. He has a bleeding laceration on his forehead above left eyebrow that is bleeding. Level 5 Cavet due nonverbal patient status so all information from patient's caregiver. - History Of Current Complaint Chief Complaint: EDLacSutureRecheck Stated Complaint: HEAD LAC Time Seen by Provider: 10/31/16 16:37 Pain Intensity: 0 - Allergies/Home Medications Allergies/Adverse Reactions: Allergies Allergy/AdvReac Type Severity Reaction Status Date / Time No Known Allergies Allergy Verified 10/25/16 09:04 PMH/Surg Hx/FS Hx/Imm Hx Endocrine/Hematology History: Reports: Hx Anemia - RECENT ANEMIA, BLOOD LOSS DUE TO HEMORRHOIDS Denies: Hx Anticoagulant Therapy Cardiovascular History: Reports: Hx Hypertension, Other Cardiovascular Problems/ Disorders - Raynaud's disease GI History: Reports: Other GI Disorders - chronic constipation and hemorrhoids Musculoskeletal History: Reports: Hx Arthritis - UNSURE, Other Musculoskeletal History - CP, VERY RIGID MOVEMENTS, TREMORS LEFT ARM, needs assist w/stairs Sensory History: Denies: Hx Contacts or Glasses, Hx Hearing Aid Opthamlomology History: Denies: Hx Contacts or Glasses Neurological History: Reports: Hx Seizures - tegratol, Other Neuro Impairments/ Disorders - CP Comment Only: Hx Nerve Disease - Cerebral Palsy, right eye strabismus Psychiatric History: Reports: Other Psychiatric Issues/Disorders - 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, PICA - Surgical History Surgery Procedure, Year, and Place: bilat hip Hx Anesthesia Reactions: No - Immunization History Date of Tetanus Vaccine: Unk Date of Influenza Vaccine: Unk Infectious Disease History: No Infectious Disease History: 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 Denies: Hx Clostridium Difficile, Hx Human Immunodeficiency Virus (HIV), Hx of Known/Suspected MRSA, Hx Shingles, Hx Tuberculosis, Hx Known/Suspected VRE, Hx Known/Suspected VRSA, History Other Infectious Disease, Traveled Outside the [place] in Last 30 Days - Family History Known Family History: Positive: None Negative: Cardiac Disease, Hypertension - Social History Alcohol Use: None Substance Use Type: Reports: None Smoking Status (MU): Never Smoked Tobacco Review of Systems Negative: Fever Negative: Chest Pain Negative: Shortness Of Breath Positive: Other - laceration forehead All Other Systems Reviewed And Are Negative: Yes Physical Exam Triage Information Reviewed: Yes Vital Signs On Initial Exam: Initial Vitals Temp Pulse Resp BP Pulse Ox 98 F 78 17 142/77 98 10/31/16 16:28 10/31/16 16:28 10/31/16 16:28 10/31/16 16:28 10/31/16 16:28 Vital Signs Reviewed: Yes Completion Of Physical Exam Limited Due To: Level 5 Appearance: Positive: Well-Appearing Skin: Positive: Other - 3cm laceration to left forehead Head/Face: Positive: Normal Head/Face Inspection, Other - no step off, racoon eyes, vital sign Eyes: Positive: Normal, EOMI, FARN, Conjunctiva Clear ENT: Positive: Normal ENT inspection, Pharynx normal, TMs normal Respiratory/Lung Sounds: Positive: Clear to Auscultation, Breath Sounds Present Cardiovascular: Positive: Normal, RRR Neurological: Positive: Other - moving all extremities - Ajtinder Coma Scale Best Eye Response: 4 - Spontaneous Best Motor Response: 6 - Obeys Commands Best Verbal Response: 5 - Oriented - according to caregiver Procedures - Laceration/Wound Repair 1 Location: head Description: Linear Length, Depth and Shape: 3cm laceration Closure: Skin Adhesive, SteriStrips Diagnostics - Vital Signs Vital Signs Temp Pulse Resp BP Pulse Ox 10/31/16 16:30 98 F 78 17 142/77 98 10/31/16 16:28 98 F 78 17 142/77 98 - Laboratory Lab Statement: Any lab studies that have been ordered have been reviewed, and results considered in the medical decision making process. - CT brain CT Interpretation: Positive (See Comments) - IMPRESSION: LIMITED STUDY, NO EVIDENCE FOR ACUTE INTRACRANIAL ABNORMALITY. CT Interpretation Completed By: Radiologist Head Injury Course/Dx Course Of Treatment: 51M presents with head injury today. Level 5 Cavet due nonverbal patient status so all information from patient's caregiver. He got laceration from standing up and his wheelchair slipped out from under him and he hit his head on a table. They deny any LOC or vomiting. He has a bleeding laceration on his forehead above left eyebrow .after discussing with caregiver, place lives would like him to have glue and sterristips due to being uncooperative. has multiple scars. seen by dr leonardo who says okay to glue. CT brain normal. patient caregiver understands and agrees with plan - Diagnoses Differential Diagnosis/HQI/PQRI: Concussion Without LOC, Contusion, Laceration Provider Diagnoses: Head injury, Laceration Discharge - Discharge Plan Condition: Good Disposition: HOME Patient Education Materials: Skin Adhesive Care (ED) Referrals: Rony Selby MD [Primary Care Provider] - Additional Instructions: Place ice on area Take Tylenol for pain as needed every 6 hours Glue and steri strips will fall off on own Avoid scrubbing area Return to ED if develop any signs of infection or any new or worsening symptoms
== END | disposition home or self-care (01) ==
LOC: ED 16:27
DX: S01.91XA Laceration without foreign body of unspecified part of head, initial encounter (principal); S09.90XA Unspecified injury of head, initial encounter; W05.0XXA Fall from non-moving wheelchair, initial encounter; Y93.9 Activity, unspecified; Y92.9 Unspecified place or not applicable
CPT/HCPCS: 70450; 99281

== ENCOUNTER 2016-11-14 09:24 | Emergency (ER) | payer MEDICARE, MEDICAID ==
[2016-11-14 11:19] LABS: Hematocrit 32 % (42-52); Hemoglobin 10.6 g/dl (14.0-18.0); Mean Corpuscular HGB Conc 33 g/dl (31-36); Mean Corpuscular Hemoglobin 31 pg (27-31); Mean Corpuscular Volume 96 fL (80-94); Mean Platelet Volume 7 um3 (7.4-10.4); Red Blood Count 3.36 10^6/ul (4.0-5.4); Red Cell Distribution Width 14 % (10.5-15); White Blood Count 5.6 10^3/ul (3.5-10.8)
--- NOTE | 2016-11-14 11:28 | RAD ---
HISTORY: Seizure COMPARISONS: June 06, 2015 VIEWS:1: Single frontal portable view of the chest at 10:41 AM FINDINGS: LINES AND TUBES: None. CARDIOMEDIASTINAL SILHOUETTE: The cardiomediastinal silhouette is normal for portable technique. PLEURA: The costophrenic angles are sharp. No pleural abnormalities are noted. LUNG PARENCHYMA: There is confluent alveolar opacification of the left lung base ABDOMEN: The upper abdomen is clear. There is no subphrenic gas. BONES AND SOFT TISSUES: No bone or soft tissue abnormalities are noted. IMPRESSION: LEFT BASILAR CONSOLIDATION
[2016-11-14 11:34] LABS: Albumin 3.8 g/dL (3.2-5.2); BUN/Creatinine Ratio 17.4 (8-20); Calcium 9.2 mg/dL (8.6-10.3); EGFR African American 156.1 (>60); EGFR Non-African American 121.4 (>60); Globulin 2.9 g/dL (2-4); Potassium 4.2 mmol/L (3.5-5.0); Total Bilirubin 0.2 mg/dL (0.2-1.0); Total Protein 6.7 g/dL (6.4-8.9)
[2016-11-14 11:45] LABS: Carbamazepine 12.7 mcg/mL (4.0-12.0)
--- NOTE | 2016-11-14 11:57 | RAD ---
HISTORY: Increased seizures COMPARISONS: October 31, 2016 [August 26, 2016 TECHNIQUE: Multiple contiguous axial CT scans were obtained of the head without intravenous contrast. FINDINGS: The study is limited by patient motion artifact. HEMORRHAGE/INFARCT: There is no hemorrhage or acute infarct. MASSES/SHIFT: There is no mass or shift. EXTRA-AXIAL SPACES: There are no extra-axial fluid collections. SULCI AND VENTRICLES: The sulci and ventricles are normal in size and position for the patient's stated age. CEREBRUM: There is stable encephalomalacia of the parietal occipital regions bilaterally BRAINSTEM: There are no focal parenchymal abnormalities. CEREBELLUM: There are no focal parenchymal abnormalities. VESSELS: The vessels are grossly normal. PARANASAL SINUSES: The paranasal sinuses are clear. ORBITS: The orbits are unremarkable. BONES AND SOFT TISSUE: There is thickening of the calvarium suggestive of chronic anticonvulsant therapy OTHER: None IMPRESSION: LIMITED STUDY. STABLE CHRONIC CHANGES. NO ACUTE INTRACRANIAL PATHOLOGY
[2016-11-14] MEDS ORDERED: NS 0.9% 1000 ML* 1,000 ML IV ONE (14:46)
[2016-11-14 16:21] LABS: Urine Bilirubin Negative (Negative); Urine Glucose Negative (Negative); Urine Nitrite Negative (Negative)
[2016-11-14 18:11] VITALS: BP 103/74
--- NOTE | 2016-12-11 14:49 | ED ---
Peter Galeano SooYoung, scribed for Collin Gallagher MD on 11/14/16 at 1109 . Neurological HPI - HPI Summary HPI Summary: A 51 y/o M MARV presents to ED after possible sz. Pt has CP. Per jet mechanic, pt' s eyes were rolling back in his head; wouldn't answer to his name; pt's behavior lasted approx 20 minutes and was still occurring when EMS arrived. 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 Had recent hemorrhoid surgery and hemorrhaged. Uses a wheelchair. Sees. Dr. Jones, neuro. Relay Telegrapher states pt is back to baseline in ED. Did receive his meds today. - History of Current Complaint Chief Complaint: EDSeizure Stated Complaint: HEAD PAIN Time Seen by Provider: 11/14/16 10:34 Hx Obtained From: Family/Relay Telegrapher Timing: Constant Pain Intensity: 0 Pain Scale Used: 0-10 Numeric Associated Signs and Symptoms: Positive: Dizziness, Seizure - possible, Nausea/ Vomiting. Negative: Fever - Allergy/Home Medications Allergies/Adverse Reactions: Allergies Allergy/AdvReac Type Severity Reaction Status Date / Time No Known Allergies Allergy Verified 10/25/16 09:04 PMH/Surg Hx/FS Hx/Imm Hx Previously Healthy: No Endocrine/Hematology History: Reports: Hx Anemia - RECENT ANEMIA, BLOOD LOSS DUE TO HEMORRHOIDS Denies: Hx Anticoagulant Therapy Cardiovascular History: Reports: Hx Hypertension, Other Cardiovascular Problems/ Disorders - Raynaud's disease GI History: Reports: Other GI Disorders - chronic constipation and hemorrhoids Musculoskeletal History: Reports: Hx Arthritis - UNSURE, Other Musculoskeletal History - CP, VERY RIGID MOVEMENTS, TREMORS LEFT ARM, needs assist w/stairs Sensory History: Denies: Hx Contacts or Glasses, Hx Hearing Aid Opthamlomology History: Denies: Hx Contacts or Glasses Neurological History: Reports: Hx Seizures - tegratol, Other Neuro Impairments/ Disorders - CP Comment Only: Hx Nerve Disease - Cerebral Palsy, right eye strabismus Psychiatric History: Reports: Other Psychiatric Issues/Disorders - 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, PICA - Surgical History Surgery Procedure, Year, and Place: bilat hip Hx Anesthesia Reactions: No - Immunization History Date of Tetanus Vaccine: Unk Date of Influenza Vaccine: Unk Infectious Disease History: No Infectious Disease History: 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 Denies: Hx Clostridium Difficile, Hx Human Immunodeficiency Virus (HIV), Hx of Known/Suspected MRSA, Hx Shingles, Hx Tuberculosis, Hx Known/Suspected VRE, Hx Known/Suspected VRSA, History Other Infectious Disease, Traveled Outside the [place] in Last 30 Days - Family History Known Family History: Positive: None Negative: Cardiac Disease, Hypertension - Social History Occupation: Disabled Lives: With Family Alcohol Use: None Hx Substance Use: No Substance Use Type: Reports: None Hx Tobacco Use: No Smoking Status (MU): Never Smoked Tobacco Review of Systems Negative: Fever, Chills Negative: Erythema Negative: Sore Throat Negative: Chest Pain Negative: Shortness Of Breath, Cough Positive: Vomiting. 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 (-) Distressed Skin: Warm, Dry HENT: Normocephalic; Atraumatic Eyes: Conjunctiva normal Neck: Musculoskeletal ROM normal neck. (-) JVD, (-) Stridor, (-) Tracheal deviation Cardio: Rhythm regular, rate normal, Heart sounds normal; Intact distal pulses; The pedal pulses are 2+ and symmetric. Radial pulses are 2+ and symmetric. (-) Murmur Pulmonary/Chest wall: Effort normal. (-) Respiratory distress, (-) Wheezes, (-) Rales Abd: Soft, (-) Tenderness, (-) Distension, (-) Guarding, (-) Rebound Musculoskeletal: (-) Edema Lymph: (-) Cervical adenopathy Neuro: Alert, Oriented x3 Psych: Mood and affect Normal Triage Information Reviewed: Yes Vital Signs On Initial Exam: Initial Vitals Temp Pulse Resp BP Pulse Ox 98.6 F 61 18 134/76 100 11/14/16 09:32 11/14/16 09:32 11/14/16 09:32 11/14/16 09:32 11/14/16 09:32 Vital Signs Reviewed: Yes - Walker Coma Scale Coma Scale Total: 15 Diagnostics - Vital Signs Vital Signs Temp Pulse Resp BP Pulse Ox 11/14/16 09:32 98.6 F 61 18 134/76 100 - Laboratory Result Diagrams: 11/14/16 11:05 11/14/16 11:05 Lab Statement: Any lab studies that have been ordered have been reviewed, and results considered in the medical decision making process. - Radiology CHEST Xray Interpretation: Positive (See Comments) - IMPRESSION: L basilar consolidation. Radiology Interpretation Completed By: Radiologist - CT Brain CT CT Interpretation: No Acute Changes - IMPRESSION: LIMITED STUDY. STABLE CHRONIC CHANGES. NO ACUTE INTRACRANIAL PATHOLOGY CT Interpretation Completed By: Radiologist - EKG 1435 ST Segment: Normal - No STEMI. Re-Evaluation - Re-Evaluation 1 Re-Evaluation Time: 17:48 Change: Unchanged Comment: Reassessed pt. Pt's hands and feet are cool to the touch. Repeat temp is 98.2 F. Course/Dx - Course Course Of Treatment: Pt is a 51 y/o M BIBA presenting after possible sz. Pt has CP. Per jet mechanic, pt's eyes were rolling back in his head; wouldn't answer to his name; pt's behavior lasted approx 20 minutes and was still occurring when EMS arrived. 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 Had recent hemorrhoid surgery and hemorrhaged. Uses a wheelchair. Sees. Dr. Jones, neuro. Relay Telegrapher states pt is back to baseline in ED. Did receive his meds today. Pt given fluids in ED. EKG had artifacts present, no STEMI. UA is nml. CXR shows L basilar consolidation. Brain CT was "LIMITED STUDY. STABLE CHRONIC CHANGES. NO ACUTE INTRACRANIAL PATHOLOGY" - Diagnoses Provider Diagnoses: Seizure disorder Discharge - Discharge Plan Condition: Stable Disposition: HOME Patient Education Materials: Recurrent Seizures in Adults (ED) Referrals: Rony Selby MD [Primary Care Provider] - 3 Days Additional Instructions: Follow up with your primary care provider in 2-3 days. The documentation as recorded by the Peter kumar SooYoung accurately reflects the service I personally performed and the decisions made by me, Collin Gallagher MD.
== END 2016-11-14 18:08 | disposition home or self-care (01) ==
LOC: ED 09:24
DX: G40.909 Epilepsy, unspecified, not intractable, without status epilepticus (principal); R42 Dizziness and giddiness; R11.10 Vomiting, unspecified; I10 Essential (primary) hypertension; I73.00 Raynaud's syndrome without gangrene
CPT/HCPCS: 36415; 51701; 70450; 71010; 80053; 80156; 80175; 81003; 83605; 85025; 93005; 96360; 99283

== ENCOUNTER 2016-11-19 00:57 | Inpatient (IN) | payer MEDICARE, MEDICAID ==
[2016-11-19 02:01] LABS: Hematocrit 38 % (42-52); Hemoglobin 11.9 g/dl (14.0-18.0); Mean Corpuscular HGB Conc 31 g/dl (31-36); Mean Corpuscular Hemoglobin 30 pg (27-31); Mean Corpuscular Volume 96 fL (80-94); Mean Platelet Volume 7 um3 (7.4-10.4); Red Blood Count 3.95 10^6/ul (4.0-5.4); Red Cell Distribution Width 15 % (10.5-15); White Blood Count 23.3 10^3/ul (3.5-10.8)
[2016-11-19 02:02] LABS: Comments Flag Yes
[2016-11-19 02:03] LABS: Add Diff/Slide Review? Slide Review Added
[2016-11-19 02:08] LABS: Albumin 3.9 g/dL (3.2-5.2); BUN/Creatinine Ratio 29.9 (8-20); Calcium 9.9 mg/dL (8.6-10.3); EGFR African American 84.9 (>60); Globulin 2.8 g/dL (2-4); Magnesium 1.9 mg/dL (1.9-2.7); Potassium 4.1 mmol/L (3.5-5.0); Total Bilirubin 0.4 mg/dL (0.2-1.0); Total Protein 6.7 g/dL (6.4-8.9)
[2016-11-19 02:21] LABS: Immature Granulocytes 28 % (0-9); Neutrophil % 65 % (38-83); RBC Morphology Normal (Normal)
[2016-11-19 02:56] LABS: Carbamazepine 15.8 mcg/mL (4.0-12.0)
--- NOTE | 2016-11-19 04:17 | ED ---
Osorio Galeano Salem, scribed for Rod Del Toro MD on 11/19/16 at 0139 . Neurological HPI - HPI Summary HPI Summary: Patient is a 51 y/o M who presents to the ED unresponsive to painful stimuli for 15 minutes. According to caregiver present at bedside pt has a hx of seizures and states unresponsiveness could be secondary to a possible seizure. Pt was in the ED 4 days ago for similar complaint. Caregiver reports hx of unresponsiveness for periods of time. Per caregiver, pt saw neurologist most recently 2 weeks ago. Pt is nonverbal. Level 5 Caveat. - History of Current Complaint Chief Complaint: EDNeurologicalDeficit Stated Complaint: SEIZURE Time Seen by Provider: 11/19/16 01:17 Hx Obtained From: Family/Area Field Worker Onset/Duration: Gradual Onset, Started minutes ago, Still Present Timing: Constant Onset Severity: Moderate Current Severity: Moderate Pain Intensity: 0 Pain Scale Used: 0-10 Numeric Aggravating: Nothing Alleviating: Nothing Associated Signs and Symptoms: Positive: Negative Related Hx: Seizure - Allergy/Home Medications Allergies/Adverse Reactions: Allergies Allergy/AdvReac Type Severity Reaction Status Date / Time No Known Allergies Allergy Verified 10/25/16 09:04 Home Medications: Home Medications Lactulose* 30 ml PO BEDTIME PRN 11/19/16 [History Confirmed 11/19/16] Lamotrigine 200 mg PO QAM 11/19/16 [History Confirmed 11/19/16] Lamotrigine 300 mg PO QPM 11/19/16 [History Confirmed 11/19/16] Zofran 8 MG Odt 8 mg PO BID PRN 11/19/16 [History Confirmed 11/19/16] PMH/Surg Hx/FS Hx/Imm Hx Endocrine/Hematology History: Reports: Hx Anemia - RECENT ANEMIA, BLOOD LOSS DUE TO HEMORRHOIDS Denies: Hx Anticoagulant Therapy Cardiovascular History: Reports: Hx Hypertension, Other Cardiovascular Problems/ Disorders - Raynaud's disease GI History: Reports: Other GI Disorders - chronic constipation and hemorrhoids Musculoskeletal History: Reports: Hx Arthritis - UNSURE, Other Musculoskeletal History - CP, VERY RIGID MOVEMENTS, TREMORS LEFT ARM, needs assist w/stairs Sensory History: Denies: Hx Contacts or Glasses, Hx Hearing Aid Opthamlomology History: Denies: Hx Contacts or Glasses Neurological History: Reports: Hx Seizures - tegratol, Other Neuro Impairments/ Disorders - CP Comment Only: Hx Nerve Disease - Cerebral Palsy, right eye strabismus Psychiatric History: Reports: Other Psychiatric Issues/Disorders - 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, PICA - Surgical History Surgery Procedure, Year, and Place: bilat hip Hx Anesthesia Reactions: No - Immunization History Date of Tetanus Vaccine: Unk Date of Influenza Vaccine: Unk Infectious Disease History: No Infectious Disease History: 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 Denies: Hx Clostridium Difficile, Hx Human Immunodeficiency Virus (HIV), Hx of Known/Suspected MRSA, Hx Shingles, Hx Tuberculosis, Hx Known/Suspected VRE, Hx Known/Suspected VRSA, History Other Infectious Disease, Traveled Outside the [place] in Last 30 Days - Family History Known Family History: Negative: Cardiac Disease, Hypertension - Social History Alcohol Use: None Hx Substance Use: No Substance Use Type: Reports: None Hx Tobacco Use: No Smoking Status (MU): Never Smoked Tobacco Review of Systems Negative: Fever Neurological: Other - Unresponsive. Possible seizure. All Other Systems Reviewed And Are Negative: No - Comments Additional Review of Systems Comments: Level 5 Caveat - pt is unresponsive. Physical Exam Triage Information Reviewed: Yes Vital Signs On Initial Exam: Initial Vitals Temp Pulse Resp BP Pulse Ox 99.6 F 97 16 108/60 97 11/19/16 01:26 11/19/16 01:26 11/19/16 01:26 11/19/16 01:26 11/19/16 01:26 Vital Signs Reviewed: Yes Appearance: Positive: Ill-Appearing - contracted, non verbal Skin: Positive: Warm Head/Face: Positive: Normal Head/Face Inspection Eyes: Positive: FRAN Neck: Positive: Supple Respiratory/Lung Sounds: Positive: Breath Sounds Present Cardiovascular: Positive: RRR Abdomen Description: Positive: Soft Bowel Sounds: Positive: Present Musculoskeletal: Positive: Strength/ROM Intact - Jatinder Coma Scale Coma Scale Total: 10 Diagnostics - Vital Signs Vital Signs Temp Pulse Resp BP Pulse Ox 11/19/16 01:26 99.6 F 97 16 108/60 97 - Laboratory Result Diagrams: 11/19/16 01:45 11/19/16 01:45 Diagnostic Studies Comment: Carbamazepine: 15.8. Lactic acid: 2.6 Lab Statement: Any lab studies that have been ordered have been reviewed, and results considered in the medical decision making process. - Radiology CXR Radiology Interpretation Completed By: ED Physician - Negative. Re-Evaluation - Re-Evaluation First Eval Comment: case d/w hospitalist Course/Dx - Course Course Of Treatment: 51 y/o M presents unresponsive to painful stimuli for 15 minutes. According to caregiver present at bedside pt has a hx of seizures and states unresponsiveness could be secondary to a possible seizure. CXR was negative. Pt will be admitted. - Diagnoses Provider Diagnoses: Febrile illness - Physician Notifications Discussed Care Of Patient With: Maude Fox Time Discussed With Above Provider: 04:34 Instructed by Provider To: Admit As Inpatient Admit/Transition Orders Completed By ED Provider: Yes Discharge - Discharge Plan Condition: Guarded Disposition: ADMITTED TO [facility] The documentation as recorded by the Osorio kumar Salem accurately reflects the service I personally performed and the decisions made by me, Rod Del Toro MD.
[2016-11-19 04:45] LABS: Urine Bacteria 1+ (Absent); Urine Bilirubin Negative (Negative); Urine Glucose Negative (Negative); Urine Nitrite Negative (Negative)
[2016-11-19] MEDS ORDERED: Ondansetron INJ* 2 MG/ML VIAL IV PRN (05:23)
[2016-11-19] MEDS ORDERED: Acetaminophen TAB* 325 MG PO PRN (05:23)
[2016-11-19] MEDS ORDERED: cefTRIAXone VIAL(*) 1,000 MG in NS 0.9% 50 ML* 50 ML IVPB SCH (06:30)
[2016-11-19] MEDS ORDERED: metroNIDAZOLE IV 500 MG/100ML* 500 MG/100 ML BAG IVPB SCH (06:45)
[2016-11-19] MEDS: NS 0.9% 1000 ML* 2,000 ML IV ONE ×2 (07:24→08:31)
[2016-11-19] MEDS: Heparin VIAL(*) 5000 UNITS/ML VIAL (FIVE THOUSAND) SUBCUT SCH ×3 (07:24→21:04)
--- NOTE | 2016-11-19 07:29 | PN ---
Progress Note - Progress Note Date of Service: 11/19/16 Note: CT abd shows ischemic colitis and hypovolemia. Will tx with 2000 ml total of IVF bolus, then cont IVF and antibiotics as ordered.
--- NOTE | 2016-11-19 08:08 | RAD ---
HISTORY: Fever COMPARISONS: November 14, 2016 VIEWS: 2: Frontal and lateral views of the chest. FINDINGS: CARDIOMEDIASTINAL SILHOUETTE: The cardiomediastinal silhouette is normal. SONIA: The sonia are normal. PLEURA: The costophrenic angles are sharp. No pleural abnormalities are noted. LUNG PARENCHYMA: The lungs are clear. There is improved aeration of the left lung base. ABDOMEN: The upper abdomen is clear. There is no subphrenic gas. BONES AND SOFT TISSUES: No bone or soft tissue abnormalities are noted. OTHER: None. IMPRESSION: NO ACTIVE CARDIOPULMONARY DISEASE.
--- NOTE | 2016-11-19 08:19 | RAD ---
CLINICAL HISTORY: Abdominal pain, diarrhea, vomiting COMPARISON: None TECHNIQUE: Multiple contiguous axial CT scans were obtained of the abdomen and pelvis, without intravenous contrast enhancement. Coronal and sagittal multiplanar reformations are submitted for review. Oral contrast was not administered. FINDINGS: The study is limited by the lack of intravenous contrast. This limits evaluation of the solid organs and vasculature. LUNG BASES: The lung bases are clear. LIVER: The liver is normal in shape, size, contour, and attenuation. BILE DUCTS: There is no intrahepatic or extrahepatic biliary dilatation. GALLBLADDER: The gallbladder is normal, without pericholecystic inflammatory change. PANCREAS: The pancreas is normal, without mass or ductal dilatation. SPLEEN: Normal in size and appearance. UPPER GI TRACT: Evaluation of the gastrointestinal tract is limited by incomplete gastric distention. The upper GI tract is unremarkable. SMALL BOWEL AND MESENTERY: The small bowel is normal in contour, course, and caliber. There is no obstruction or dilatation. COLON: There is diffuse mucosal thickening of the distal transverse colon, descending, and sigmoid colon. There is stranding of the pericolic fat with fluid tracking along the lateroconal fascia. ADRENALS: Normal bilaterally. KIDNEYS: The kidneys are normal in shape, size, contour, and axis. There is no hydronephrosis or nephrolithiasis. BLADDER: The bladder is incompletely distended but is grossly normal. PELVIC ORGANS: The prostate gland is normal. The seminal vesicles are symmetric. AORTA: The aorta is normal. IVC: Unremarkable LYMPH NODES: There is no lymphadenopathy by size criteria. ABDOMINAL WALL: There is no evidence for abdominal wall hernia. BONES AND SOFT TISSUES: There are mild diffuse degenerative changes. OTHER: None IMPRESSION: THERE IS MUCOSAL THICKENING OF THE DESCENDING AND SIGMOID COLON WITH PERICOLONIC INFLAMMATORY CHANGE. THE APPEARANCE IS MOST SUGGESTIVE OF COLITIS. THE DIFFERENTIAL INCLUDES INFLAMMATORY, INFECTIOUS, OR ISCHEMIC COLITIS.
[2016-11-19] MEDS: NS 0.9% 1000 ML* 1,000 ML IV SCH ×2 (10:00→21:13)
[2016-11-19] MEDS: Acetaminophen SUPP* 325 MG SUPP PR PRN ×2 (10:04→16:35)
--- NOTE | 2016-11-19 12:02 | HP ---
CC: DON Soto; Dr. Jones; Dr. Miramontes * HISTORY AND PHYSICAL: DATE OF ADMISSION: 11/19/16 PRIMARY CARE PROVIDER: DON Soto CHIEF COMPLAINT: Prolonged seizure. HISTORY OF PRESENT ILLNESS: Jabari Headley is a 51-year-old male with history of developmental delay due to cerebral palsy and subsequent development of seizure disorder. The patient has seizures frequently and usually that demonstrates with generalized tremors and more tenacity and then subsequent unresponsiveness. Today, the staff noted that the patient's unresponsiveness after the seizure was prolonged for approximately 15 minutes and they called 911 as per protocol. The patient slowly regained consciousness when in the emergency department. He, is at this point, neurologically back to his baseline which is minimal verbalization and not able to follow commands. The patient was noted to have marked elevation of white blood cell count meeting SIRS criteria. He is going to be placed on observation. Please note that the staff member from [facility] where the patient is a resident of noted that the patient had an episode of very hard stool within past 24 hours and subsequent several loose stools. The patient also had an episode of nausea and vomiting x1. Apparently, in the facility, there had been increased incidence of diarrheal illness in the residence in the past several days. PAST MEDICAL HISTORY: 1. History of hypertension. 2. History of strabismus. 3. History of disease. 4. History of cerebral palsy with subsequent hemiplegia. 5. History of seizure disorder. 6. History of recent colonoscopy at the end of October of 2016 with several polyps removed. 7. History of recent hemorrhoidal banding performed surgically at our facility by Dr. Morris on 10/25/16. MEDICATIONS: Include: 1. Multivitamin 1 tablet daily. 2. Benztropine, which is Cogentin 1 mg daily. 3. Ability 10 mg daily. 4. Zofran 8 mg on a p.r.n. basis. 5. Fiber laxative 1 tablet daily. 6. Lamictal 250 mg in the morning and 350 mg in p.m. 7. [place] 300 mg b.i.d. 8. Lactulose p.o. 30 mL at bedtime for constipation as needed. 9. Tegretol 400 mg 3 times a day. 10. Triazolam 0.25 mg, the patient takes 3 tablets 1 hour before dental appointment. 11. Preparation H ointment 4 times a day that was prescribed for 14 days after the patient's hemorrhoidal banding. 12. Lorazepam 1 mg as needed every 6 hours for agitation. 13. Prunes, the patient receives prunes twice a day. 14. Peridex mouthwash 4 times a day. 15. Acetaminophen 650 mg on a p.r.n. basis for fever and pain. ALLERGIES: No known drug allergies. FAMILY HISTORY: Unobtainable from this basically nonverbal patient. SOCIAL HISTORY: The patient is a resident of [facility] due to his developmental delay. His surrogates are his parents, Sofi and Jabari Headley, living in [place], [place]. The phone number to the patient's parents is [phone]. REVIEW OF SYSTEMS: Unobtainable from this basically nonverbal patient. The patient did state "ouch" when his abdomen was palpated. Otherwise, as above mentioned, as per the patient's aide from the house, diarrhea was noted subsequent to a large hard bowel movement within the past 24 hours, 1 episode of nausea and vomiting. No fevers and prolonged seizure as mentioned above. The patient overall has had several seizures in the past couple of weeks, which is not that unusual for him. I noted healed laceration on the patient's left side of the forehead. Apparently, he fell appropriately 2 weeks ago and hit his head. Remaining review of systems were unobtainable due to the patient being nonverbal. PHYSICAL EXAMINATION GENERAL: The patient is a pleasant 51-year-old male, who is awake and alert. The patient is nonverbal. He is able to say yes occasionally. Does not appear to be appropriately responding though and not able to follow commands. VITAL SIGNS: Blood pressure of 102/67, heart rate of 98 and regular, respiratory rate 22, oxygen saturation 96% on room air, temperature of 99.7. HEENT: Head: On the left side of the patient's forehead, he has healed scar of approximately 3 cm length from recent fall. Eyes: Extraocular muscles intact. Pupils are equal and reactive to light and accommodation. Oropharynx clear. Mucosa moist. NECK: Supple. No JVD. No bruits bilaterally. RESPIRATORY: Clear to auscultation bilaterally. CARDIOVASCULAR: Regular rate and rhythm. No murmur. ABDOMEN: Soft, mildly diffusely tender. There is no rebound, no guarding. Bowel sounds present in all 4 quadrants. EXTREMITIES: There is no edema. Pulses +2 bilaterally. No clubbing or cyanosis. NEURO EVALUATION: Difficult to obtain in this patient who does not follow commands. The patient has very limited verbalization. He appears to have mild contractures about upper extremities. He withdraws to stimulation bilateral lower extremities symmetrically. SKIN: On evaluation of the skin, apart from the healed scar above the left eyebrow, there are no other abnormalities noted. DIAGNOSTIC STUDIES/LAB DATA: Showed sodium of 135, potassium 4.1, chloride 103 , carbon dioxide 22, BUN 35, creatinine 1.17, glucose of 153. Liver function tests were unremarkable. Lactic acid is pending at the time of dictation. White blood cell count 23.3, hemoglobin 11.9, hematocrit of 38, and platelets of 382. The patient has 28 bands on his differential. Urinalysis obtained via straight cath showed trace ketones, trace esterase, +1 bacteria. The patient's portable chest x-ray reviewed by myself prior to the official radiologist's report shows no infiltrates and no abnormality, cardiac silhouette noted. Brain CT and abdominal CT is pending at the time of dictation. The patient's carbamazepine level was 15.8, an upper limit of normal was 12. This was performed at 1:45 a.m. ASSESSMENT AND PLAN: 1. Prolonged seizure in the face of the patient with marked leukocytosis, recent history of diarrhea, and abdominal tenderness on evaluation. At this point, the lower seizure threshold is most likely due to generalized illness. Possibly viral gastroenteritis with the patient's history of colonoscopy within the past month and history of hemorrhoidal banding within the past 3 weeks, I will obtain plain CT of the abdomen to rule out any marked gross abnormality. Due to marked leukocytosis and bandemia, the patient is going to be placed on empiric ceftriaxone and Flagyl. I will order stool test for Clostridium difficile. The patient is going to be placed on intravenous hydration and clear liquid diet for the time being. Although due to recent seizure, I will ask our Speech Therapy to see the patient for swallow evaluation. 2. In regards to the patient's prolonged seizure, I will not change the patient 's antiepileptic medications. Although the patient's carbamazepine level was slightly higher at 1:45 a.m., that was not a level obtained just prior to the next dose which the patient, I believe, would receive around 8 or 9 a[address] I will also place the patient on seizure precautions. 3. For DVT prophylaxis, the patient is going to be placed on heparin subcutaneously. 4. Code status. The patient's code status is full. His surrogates are his parents from [place], [place]. TIME SPENT: Approximately 62 minutes was spent on admission of this patient, more than half that time was spent [id number] with the patient during the evaluation. [id number]/[facility] #: [id number] MTDVero
[2016-11-19] MEDS: ARIPiprazole TAB* 5 MG PO SCH (12:28)
[2016-11-19] MEDS: Benztropine TAB* 1 MG PO SCH (12:29)
[2016-11-19] MEDS: Lithium Carbonate TAB* 300 MG PO SCH ×2 (12:29→21:03)
[2016-11-19] MEDS: lamoTRIgine TAB(*) 100 MG PO SCH ×2 (12:45→18:30)
[2016-11-19] MEDS: carBAMazepine ER TAB(*) 200 MG PO SCH ×3 (12:45→21:03)
--- NOTE | 2016-11-19 13:45 | PN ---
Subjective Date of Service: 11/19/16 Interval History: Patient seen this morning with aide at bedside. Patient alert, some verbalization, responds to stimuli. Moans when abdomen palpated. As per aide a few other residents have had diarrheal illnesses recently. No BMs so far today. Family History: Unchanged from Admission Social History: Unchanged from Admission Past Medical History: Unchanged from Admission Objective Active Medications: Acetaminophen (Tylenol Tab*) 650 mg PO Q4H PRN Acetaminophen (Tylenol Supp*) 325 mg [place] Q4H PRN Aripiprazole (Abilify Tab*) 10 mg PO QAM BUZZ Benztropine Mesylate (Cogentin Tab*) 1 mg PO QAM BUZZ Carbamazepine (Tegretol Xr Tab(*)) 400 mg PO TID BUZZ Heparin Sodium (Porcine) (Heparin Vial(*)) 5,000 units SUBCUT Q8HR BUZZ Sodium Chloride (Ns 0.9% 1000 Ml*) 1,000 mls @ 125 mls/hr IV PER RATE BUZZ Metronidazole/Sodium Chloride (Flagyl 500 Mg Ivpb*) 500 mg in 100 mls @ 100 mls /hr IVPB 0200,1000,1800 BUZZ Ceftriaxone Sodium 1,000 mg/ (Sodium Chloride) 50 mls @ 200 mls/hr IVPB 0900 BUZZ Levetiracetam 750 mg/ Sodium (Chloride) 107.5 mls @ 440 mls/hr IVPB Q12H BUZZ Lamotrigine (Lamictal Tab(*)) 200 mg PO QAM BUZZ Lamotrigine (Lamictal Tab(*)) 300 mg PO QPM BUZZ [place] Carbonate ([place] Carbonate Tab*) 300 mg PO BID BUZZ Lorazepam (Ativan Tab(*)) 1 mg PO Q6H PRN Ondansetron HCl (Zofran Inj*) 4 mg IV Q4H PRN Quetiapine Fumarate (Seroquel Tab*) 150 mg PO BEDTIME BUZZ Oxygen Devices in Use Now: None Appearance: Middle-aged M, laying in bed in NAD Eyes: No Scleral Icterus Ears/Nose/Mouth/Throat: - - Dry MM Neck: NL Appearance and Movements; NL JVP Respiratory: Symmetrical Chest Expansion and Respiratory Effort, Clear to Auscultation Cardiovascular: NL Sounds; No Murmurs; No JVD Abdominal: - - Soft, non-distended, TTP in LLQ, no rebound/guarding, BS+ Lymphatic: No Cervical Adenopathy Extremities: No Edema Skin: - - Small ecchymosis and swelling over L eye Neurological: - - Alert, mostly non-verbal, responds to stimuli Result Diagrams: 11/19/16 01:45 11/19/16 01:45 Assess/Plan/Problems-Billing Assessment: Colitis, prolonged seizure in a 51 yo M with hx of cerebral palsy, seizure disorder, recent hemorrhoid banding - Patient Problems (1) Colitis Current Visit: Yes Comment: Seems most likely to be infectious at this time with low grade fever, leukocytosis/bandemia. Continue empiric ABx for now. C diff pending. Also ordered fecal lactoferrin, stool culture. Continue IVF, recheck lactate in AM. Clears for now (can give pureed food with meds if patient willing to take them) (2) Seizure disorder Current Visit: Yes Comment: Unfortunately patient is unwilling to take PO at this time. Will transition to IV Keppra for now but continue to try to encourage patient to resume home Tegretol and Lamictal. (3) DVT prophylaxis Current Visit: Yes Comment: HSQ Status and Disposition: Inpatient for infectious colitis
[2016-11-19] MEDS: metroNIDAZOLE IV 500 MG/100ML* 500 MG/100 ML BAG IVPB SCH (18:30)
[2016-11-19] MEDS: QUEtiapine TAB* 100 MG PO SCH (21:03)
[2016-11-20] MEDS: metroNIDAZOLE IV 500 MG/100ML* 500 MG/100 ML BAG IVPB SCH ×3 (02:18→18:02)
[2016-11-20] MEDS: Heparin VIAL(*) 5000 UNITS/ML VIAL (FIVE THOUSAND) SUBCUT SCH ×3 (04:58→21:26)
[2016-11-20] MEDS: NS 0.9% 1000 ML* 1,000 ML IV SCH ×2 (06:32→18:02)
[2016-11-20 06:46] LABS: Hematocrit 28 % (42-52); Hemoglobin 8.9 g/dl (14.0-18.0); Mean Corpuscular HGB Conc 32 g/dl (31-36); Mean Corpuscular Hemoglobin 31 pg (27-31); Mean Corpuscular Volume 97 fL (80-94); Mean Platelet Volume 7 um3 (7.4-10.4); Red Cell Distribution Width 15 % (10.5-15); White Blood Count 15.8 10^3/ul (3.5-10.8)
[2016-11-20 06:48] LABS: Add Diff/Slide Review? Slide Review Added; Comments Flag Yes
[2016-11-20 06:56] LABS: BUN/Creatinine Ratio 38.6 (8-20); EGFR African American 153.5 (>60); EGFR Non-African American 119.4 (>60); Potassium 3.7 mmol/L (3.5-5.0)
[2016-11-20 07:37] LABS: Hypochromasia 1+; Immature Granulocytes 18 % (0-9); Neutrophil % 70 % (38-83)
[2016-11-20] MEDS: ARIPiprazole TAB* 5 MG PO SCH (08:51)
[2016-11-20] MEDS: carBAMazepine ER TAB(*) 200 MG PO SCH ×3 (08:51→21:26)
[2016-11-20] MEDS: Lithium Carbonate TAB* 300 MG PO SCH ×2 (08:52→21:26)
[2016-11-20] MEDS: Benztropine TAB* 1 MG PO SCH (08:52)
[2016-11-20] MEDS: lamoTRIgine TAB(*) 100 MG PO SCH ×2 (08:52→17:57)
[2016-11-20] MEDS: cefTRIAXone VIAL(*) 1,000 MG in NS 0.9% 50 ML* 50 ML IVPB SCH (09:02)
--- NOTE | 2016-11-20 11:00 | PN ---
Subjective Date of Service: 11/20/16 Interval History: Patient seen this morning with aide at bedside. She states he is closer to his baseline. Has been compliant with PO medications beginning yesterday afternoon. Had one soft BM yesterday, not diarrhea, none since. Still seems to have some abdominal pain. Family History: Unchanged from Admission Social History: Unchanged from Admission Past Medical History: Unchanged from Admission Objective Active Medications: Acetaminophen (Tylenol Tab*) 650 mg PO Q4H PRN Acetaminophen (Tylenol Supp*) 325 mg [place] Q4H PRN Aripiprazole (Abilify Tab*) 10 mg PO QAM BUZZ Benztropine Mesylate (Cogentin Tab*) 1 mg PO QAM BUZZ Carbamazepine (Tegretol Xr Tab(*)) 400 mg PO TID BUZZ Heparin Sodium (Porcine) (Heparin Vial(*)) 5,000 units SUBCUT Q8HR BUZZ Sodium Chloride (Ns 0.9% 1000 Ml*) 1,000 mls @ 125 mls/hr IV PER RATE BUZZ Metronidazole/Sodium Chloride (Flagyl 500 Mg Ivpb*) 500 mg in 100 mls @ 100 mls /hr IVPB 0200,1000,1800 BUZZ Ceftriaxone Sodium 1,000 mg/ (Sodium Chloride) 50 mls @ 200 mls/hr IVPB 0900 BUZZ Levetiracetam 750 mg/ Sodium (Chloride) 107.5 mls @ 440 mls/hr IVPB Q12H BUZZ Lamotrigine (Lamictal Tab(*)) 200 mg PO QAM BUZZ Lamotrigine (Lamictal Tab(*)) 300 mg PO QPM BUZZ [place] Carbonate ([place] Carbonate Tab*) 300 mg PO BID BUZZ Lorazepam (Ativan Tab(*)) 1 mg PO Q6H PRN Ondansetron HCl (Zofran Inj*) 4 mg IV Q4H PRN Quetiapine Fumarate (Seroquel Tab*) 150 mg PO BEDTIME BUZZ Vital Signs 11/19/16 11/19/16 11/19/16 15:50 20:00 21:50 Temperature 100.9 F 100.9 F Pulse Rate 95 100 Respiratory 24 20 Rate Blood Pressure 123/67 (mmHg) O2 Sat by Pulse 97 96 Oximetry 11/19/16 11/20/16 11/20/16 23:54 03:39 07:19 Temperature 99.5 F 100.0 F 99.3 F Pulse Rate 95 111 84 Respiratory 16 16 Rate Blood Pressure 115/58 109/57 110/54 (mmHg) O2 Sat by Pulse 97 100 99 Oximetry Oxygen Devices in Use Now: None Appearance: Middle-aged, M, laying in bed in NAD Eyes: No Scleral Icterus Ears/Nose/Mouth/Throat: Mucous Membranes Moist Neck: NL Appearance and Movements; NL JVP Respiratory: Symmetrical Chest Expansion and Respiratory Effort, Clear to Auscultation Cardiovascular: NL Sounds; No Murmurs; No JVD, RRR Abdominal: - - Soft, non-distended, TTP in LLQ, BS+ Lymphatic: No Cervical Adenopathy Extremities: No Edema Skin: - - Healing laceration over L eye Neurological: - - Alert, mostly non-verbal Result Diagrams: 11/20/16 06:19 11/20/16 06:19 Microbiology and Other Data: Microbiology 11/19/16 15:30 Stool Gross Appearance - Final Stool C. difficile DNA Amplification - Final 027 Presumptive NEGATIVE Toxigenic C.diff NEGATIVE Stool Occult Blood ([facility]) - Final 11/19/16 15:30 Stool Gross Appearance - Final Stool Assess/Plan/Problems-Billing Assessment: Colitis, prolonged seizure in a 51 yo M with hx of cerebral palsy, seizure disorder, recent hemorrhoid banding - Patient Problems (1) Colitis Current Visit: Yes Comment: Seems most likely to be infectious. Continue empiric ABx for now. Leukocytosis and bandemia improving. C diff negative. Fecal lactoferrin, stool culture pending. Continue IVF. Continue clears for now (can give pureed food with meds if patient willing to take them). (2) Seizure disorder Current Visit: Yes Comment: Patient now compliant with meds, continue home Tegretol and Lamictal. D/C IV Keppra. (3) DVT prophylaxis Current Visit: Yes Comment: HSQ Status and Disposition: Inpatient for infectious colitis
[2016-11-20] MEDS: QUEtiapine TAB* 100 MG PO SCH (21:26)
[2016-11-20] MEDS: LORazepam TAB(*) 1 MG PO PRN (22:00)
[2016-11-21] MEDS: metroNIDAZOLE IV 500 MG/100ML* 500 MG/100 ML BAG IVPB SCH ×2 (02:06→10:32)
[2016-11-21] MEDS: Heparin VIAL(*) 5000 UNITS/ML VIAL (FIVE THOUSAND) SUBCUT SCH ×2 (05:09→13:56)
[2016-11-21 08:48] LABS: Hematocrit 28 % (42-52); Hemoglobin 8.6 g/dl (14.0-18.0); Mean Corpuscular HGB Conc 31 g/dl (31-36); Mean Corpuscular Hemoglobin 30 pg (27-31); Mean Corpuscular Volume 97 fL (80-94); Mean Platelet Volume 7 um3 (7.4-10.4); Red Blood Count 2.86 10^6/ul (4.0-5.4); Red Cell Distribution Width 14 % (10.5-15); White Blood Count 13.4 10^3/ul (3.5-10.8)
[2016-11-21 08:59] LABS: BUN/Creatinine Ratio 27.4 (8-20); Calcium 8.5 mg/dL (8.6-10.3); EGFR African American 176.6 (>60); EGFR Non-African American 137.3 (>60); Potassium 3.3 mmol/L (3.5-5.0)
[2016-11-21 09:41] VITALS: BP 120/67
[2016-11-21] MEDS: cefTRIAXone VIAL(*) 1,000 MG in NS 0.9% 50 ML* 50 ML IVPB SCH (09:42)
[2016-11-21] MEDS: ARIPiprazole TAB* 5 MG PO SCH ×2 (09:42→09:55)
[2016-11-21] MEDS: lamoTRIgine TAB(*) 100 MG PO SCH (09:43)
[2016-11-21] MEDS: carBAMazepine ER TAB(*) 200 MG PO SCH ×2 (09:43→13:55)
[2016-11-21] MEDS: Benztropine TAB* 1 MG PO SCH (09:44)
[2016-11-21] MEDS: Lithium Carbonate TAB* 300 MG PO SCH (09:45)
--- NOTE | 2016-11-21 10:31 | PN ---
Subjective Date of Service: 11/21/16 Interval History: Patient doing better today, as per aide seems about back to baseline. He seems comfortable. Has been tolerating PO (clears) with no issues. Family History: Unchanged from Admission Social History: Unchanged from Admission Past Medical History: Unchanged from Admission Objective Active Medications: Acetaminophen (Tylenol Tab*) 650 mg PO Q4H PRN Acetaminophen (Tylenol Supp*) 325 mg [place] Q4H PRN Aripiprazole (Abilify Tab*) 10 mg PO QAM BUZZ Benztropine Mesylate (Cogentin Tab*) 1 mg PO QAM BUZZ Carbamazepine (Tegretol Xr Tab(*)) 400 mg PO TID BUZZ Heparin Sodium (Porcine) (Heparin Vial(*)) 5,000 units SUBCUT Q8HR BUZZ Metronidazole/Sodium Chloride (Flagyl 500 Mg Ivpb*) 500 mg in 100 mls @ 100 mls /hr IVPB 0200,1000,1800 BUZZ Ceftriaxone Sodium 1,000 mg/ (Sodium Chloride) 50 mls @ 200 mls/hr IVPB 0900 BUZZ Sodium Chloride (Ns 0.9% 1000 Ml*) 1,000 mls @ 75 mls/hr IV PER RATE BUZZ Lamotrigine (Lamictal Tab(*)) 200 mg PO QAM BUZZ Lamotrigine (Lamictal Tab(*)) 300 mg PO QPM BUZZ [place] Carbonate ([place] Carbonate Tab*) 300 mg PO BID BUZZ Lorazepam (Ativan Tab(*)) 1 mg PO Q6H PRN Ondansetron HCl (Zofran Inj*) 4 mg IV Q4H PRN Quetiapine Fumarate (Seroquel Tab*) 150 mg PO BEDTIME [facility] Vital Signs 11/20/16 11/20/16 11/20/16 11:51 14:22 15:53 Temperature 99.9 F 99.5 F Pulse Rate 102 79 Respiratory 17 16 Rate Blood Pressure 108/60 119/58 (mmHg) O2 Sat by Pulse 100 96 Oximetry 11/20/16 11/20/16 11/20/16 19:39 20:00 22:00 Temperature 99.2 F Pulse Rate 88 Respiratory 16 16 18 Rate Blood Pressure 128/60 (mmHg) O2 Sat by Pulse 100 Oximetry 11/21/16 11/21/16 00:00 07:40 Temperature Pulse Rate 84 Respiratory 16 16 Rate Blood Pressure 120/67 (mmHg) O2 Sat by Pulse Oximetry Oxygen Devices in Use Now: None Appearance: Middle-aged, M, laying in bed in NAD Eyes: No Scleral Icterus Ears/Nose/Mouth/Throat: Mucous Membranes Moist Neck: NL Appearance and Movements; NL JVP Respiratory: Symmetrical Chest Expansion and Respiratory Effort, Clear to Auscultation Cardiovascular: NL Sounds; No Murmurs; No JVD, RRR Abdominal: NL Sounds; No Tenderness; No Distention Lymphatic: No Cervical Adenopathy Extremities: No Edema Neurological: - - Alert, mostly non-verbal Result Diagrams: 11/21/16 08:35 11/21/16 08:34 Microbiology and Other Data: Microbiology 11/19/16 15:30 Stool Gross Appearance - Final Stool C. difficile DNA Amplification - Final 027 Presumptive NEGATIVE Toxigenic C.diff NEGATIVE Stool Occult Blood ([facility]) - Final 11/19/16 15:30 Stool Gross Appearance - Final Stool Assess/Plan/Problems-Billing Assessment: Colitis, prolonged seizure in a 51 yo M with hx of cerebral palsy, seizure disorder, recent hemorrhoid banding - Patient Problems (1) Colitis Current Visit: Yes Comment: Seems most likely to be infectious. Continue empiric ABx for now. Leukocytosis nearly resolved. C diff negative. Fecal lactoferrin positive, stool culture pending. Will advance diet, if tolerates can d/c home on oral Cipro/Flagyl. (2) Seizure disorder Current Visit: Yes Comment: Continue home Tegretol and Lamictal. (3) DVT prophylaxis Current Visit: Yes Comment: HSQ Status and Disposition: Inpatient for infectious colitis, IV ABx, potential discharge today
[2016-11-21] MEDS: NS 0.9% 1000 ML* 1,000 ML IV SCH (10:32)
[2016-11-21] MEDS: LORazepam TAB(*) 1 MG PO PRN (13:56)
--- NOTE | 2016-11-22 03:14 | DS ---
CC: Cheyenne Torres; Dr. Jones; Dr. Miramontes * DISCHARGE SUMMARY: DATE OF ADMISSION: 11/19/16 DATE OF DISCHARGE: 11/21/16 PRIMARY CARE PHYSICIAN: Cheyenne Torres. PRINCIPAL DISCHARGE DIAGNOSES: 1. Infectious colitis. 2. Seizure disorder. SECONDARY DIAGNOSES: 1. History of cerebral palsy. 2. Recent hemorrhoidal banding. DISCHARGE MEDICATIONS: 1. Ciprofloxacin 500 mg by mouth 3 times daily. 2. Metronidazole 500 mg by mouth 3 times daily. 3. Carbamazepine 400 mg by mouth 3 times daily. 4. Fleet enema 1 bottle per rectum every 72 hours as needed for constipation. 5. Triazolam 0.25 mg by mouth 3 times daily. 6. Seroquel 150 mg by mouth at bedtime. 7. Multivitamin 1 tablet by mouth daily. 8. Ativan 1 mg by mouth every 6 hours as needed for agitation. 9. [place] 300 mg by mouth 3 times daily. 10. Benztropine 1 mg by mouth daily. 11. Fiber-Lax 625 mg by mouth daily. 12. Abilify 10 mg by mouth daily. 13. Tylenol 650 mg by mouth every 4 hours as needed for pain. 14. Lactulose 30 mL by mouth at bedtime as needed for constipation. 15. Lamotrigine 200 mg by mouth in the morning and 300 mg by mouth in the evening. 16. Zofran 8 mg by mouth 3 times daily as needed for nausea. STUDIES DONE DURING HOSPITALIZATION: Chest x-ray, impression: No active cardiopulmonary disease. CT abdomen and pelvis: Mucosal thickening of the descending and sigmoid colon with pericolonic inflammatory change. Appearance is most suggestive of colitis. Differential includes inflammatory, infectious or ischemic colitis. HISTORY OF PRESENT ILLNESS AND HOSPITAL SUMMARY: Please see the full history and physical by Dr. Maude Fox for full details. Briefly, Mr. Headley is a 51 -year- old man with past medical history of developmental delay, cerebral palsy , seizure disorder, who presented to the hospital with what seemed like a prolonged seizure in the setting of recent diarrhea and abdominal pain. On admission, the patient was noted to have an elevated white blood cell count of 23 with 28% bands and a lactic acidosis as well as a fever. CT scan showed evidence of colitis and it was felt that it is most likely due to an infectious cause as there were other residents who had similar symptoms. The patient was started on IV antibiotics and over the following days, his symptoms improved. He had no further diarrhea here in the hospital and his abdominal pain resolved. He was able to tolerate a regular diet with no issues. At the time of discharge, his C. diff was negative and stool culture was still pending. Fecal lactoferrin was positive as well as a fecal occult blood test. In regards to the patient's seizure, it was felt that his seizure threshold was likely lower due to this infection, so no changes were made to his medications. He initially was refusing to take his oral medications, so he received 1 dose of Keppra, but by the evening he was more agreeable and was restarted back on his home regimen. The patient will be discharged home with oral antibiotics, can follow up with his PCP as an outpatient. No other medication changes were made on this admission. TIME SPENT: Total time spent on this discharge, 45 minutes. This is a summary of the hospitalization. Please see the full medical record for further details. [id number]/[facility] #: [id number] MTDD
== END 2016-11-21 16:21 | disposition home health service (06) | DRG 392 ==
LOC: ED 00:57 → MED 05:23 → OBSVTOIN 13:00
PROVIDERS: ADMIT Internal Medicine; ATTEND Hospitalist
DX: A09 Infectious gastroenteritis and colitis, unspecified (principal); E86.1 Hypovolemia; G40.901 Epilepsy, unspecified, not intractable, with status epilepticus; G80.9 Cerebral palsy, unspecified; R62.50 Unspecified lack of expected normal physiological development in childhood; Z79.1 Long term (current) use of non-steroidal anti-inflammatories (NSAID); Z79.899 Other long term (current) drug therapy
CPT/HCPCS: 36415; 71020; 74176; 80048; 80053; 80156; 80175; 81003; 81015; 82272; 83605; 83630; 83735; 85025; 87040; 87045; 87046; 87077; 87086; 87493; 87641; 87899; A9270-GY; J0696; J1644

== ENCOUNTER 2016-11-22 16:59 | Inpatient (IN) | payer MEDICARE, MEDICAID ==
[2016-11-22] MEDS ORDERED: NS 0.9% 1000 ML* 1,000 ML IV ONE (18:22)
[2016-11-22 18:57] LABS: Hematocrit 26 % (42-52); Hemoglobin 8.2 g/dl (14.0-18.0); Mean Corpuscular HGB Conc 32 g/dl (31-36); Mean Corpuscular Hemoglobin 30 pg (27-31); Mean Corpuscular Volume 96 fL (80-94); Mean Platelet Volume 7 um3 (7.4-10.4); Red Blood Count 2.71 10^6/ul (4.0-5.4); Red Cell Distribution Width 15 % (10.5-15); White Blood Count 15.9 10^3/ul (3.5-10.8)
[2016-11-22 18:58] LABS: Add Diff/Slide Review? Slide Review Added; Comments Flag Yes
[2016-11-22] MEDS ORDERED: Ciprofloxacin 400MG IVPREMIX(* 400 MG/200 ML BAG IVPB ONE (19:01)
[2016-11-22] MEDS ORDERED: metroNIDAZOLE IV 500 MG/100ML* 500 MG/100 ML BAG IVPB ONE ×2 (19:02→20:22)
--- NOTE | 2016-11-22 19:04 | RAD ---
HISTORY: Pneumonia, seizure COMPARISONS: November 19, 2016 VIEWS:1: Single frontal portable view of the chest at 6:52 PM FINDINGS: LINES AND TUBES: None. CARDIOMEDIASTINAL SILHOUETTE: The cardiomediastinal silhouette is normal for portable technique. PLEURA: The costophrenic angles are sharp. No pleural abnormalities are noted. LUNG PARENCHYMA: The lung volumes are low. The lungs are clear accounting for the phase of respiration. ABDOMEN: The upper abdomen is clear. There is no subphrenic gas. BONES AND SOFT TISSUES: No bone or soft tissue abnormalities are noted. IMPRESSION: LOW LUNG VOLUMES. NO ACTIVE CARDIOPULMONARY DISEASE.
[2016-11-22 19:39] LABS: Albumin 2.9 g/dL (3.2-5.2); BUN/Creatinine Ratio 22.4 (8-20); Calcium 8.4 mg/dL (8.6-10.3); EGFR African American 190.7 (>60); EGFR Non-African American 148.3 (>60); Globulin 2.9 g/dL (2-4); Magnesium 2.1 mg/dL (1.9-2.7); Potassium 3.5 mmol/L (3.5-5.0); Total Bilirubin 0.2 mg/dL (0.2-1.0); Total Protein 5.8 g/dL (6.4-8.9)
[2016-11-22 19:50] LABS: Carbamazepine 18.6 mcg/mL (4.0-12.0)
--- NOTE | 2016-11-22 21:21 | HP ---
H&P (Free Text) History and Physical: PCP: Raheel Selby MD Date/Time of Evaluation: 11/22/20162029 CC: prolonged seizure HPI: Mr Headley is a 51YO male HX epilepsy, HTN, cerebral palsy w/ hemiplegia who was admitted to [facility] 11/19-11/21/2016 for seizure exacerbation &infectious colitis. This is an interval H&P as he was discharged yesterday. The original H& P and DC summaries have been copied at the end, content reviewed and unchanged. Mr Headley resides at the [facility]. The aide with him relates he was his usual today, sitting much of the time in a chair. Around 16:15 he had 2 brief "seizures" followed by a 15minute period of unresponsiveness associated with fine BUE tremor and the appearance of alternately trying to stand and then sit back. The total episode lasted ~20minutes and he did not return to baseline between. PMedHx, PSurgHx, SocHx, &FamHx: reviewed and unchanged Ambulatory Orders Nursing to reconcile. ARIPiprazole TAB* [Abilify TAB*] 10 mg PO QAM 09/19/12 Multiple Vitamin [Tab-A-Shereen] 1 tab PO QAM 09/19/12 Acetaminophen TAB* [Tylenol TAB*] 650 mg PO Q4H PRN 09/06/14 Calcium Polycarbophil [Fiber-Lax] 625 mg PO QAM 09/06/14 Sodium Phosphate ADULT ENEMA* [Fleet Enema*] 1 bottle MT Q72H PRN 09/06/14 Triazolam TAB* [Halcion TAB*] 0.25 mg PO TID 09/06/14 Benztropine TAB* [Cogentin TAB*] 1 mg PO QAM 10/21/16 LORazepam TAB(*) [Ativan 1 MG TAB (*)] 1 mg PO Q6H PRN 10/21/16 [place] Carbonate TAB* 300 mg PO BID 10/27/16 QUEtiapine TAB* [Seroquel TAB*] 150 mg PO BEDTIME 10/27/16 carBAMazepine ER TAB(*) [Tegretol Xr TAB(*)] 400 mg PO TID 10/27/16 Lactulose* 30 ml PO BEDTIME PRN 11/19/16 Lamotrigine 200 mg PO QAM 11/19/16 Lamotrigine 300 mg PO QPM 11/19/16 Zofran 8 MG Odt 8 mg PO BID PRN 11/19/16 Ciprofloxacin TAB* [Cipro 500 MG TAB*] 500 mg PO BID #16 tab 11/21/16 Metronidazole [Flagyl 500 MG TAB] 500 mg PO TID #24 tab 11/21/16 Allergies No Known Allergies Allergy (Verified 11/22/16 17:51) ROS: as above, otherwise reviewed and all were negative Constitutional: NAD, normally developed, well-nourished white male vitals: Vital Signs Temp 36.6 C 11/22/16 21:09 Pulse 78 11/22/16 21:09 Resp 18 11/22/16 21:09 BP 106/58 11/22/16 21:09 Pulse Ox 97 11/22/16 21:00 Intake & Output 11/21/16 11/22/16 11/22/16 23:59 11:59 23:59 Intake Total 1200 Balance 1200 Weight 65.771 kg Intake: IV Fluids 1200 HEENM: atraumatic; congenital facies; sclera/conjunctiva: non-icteric/clear; hearing: unable to adequately assess; dentition: poor; oropharynx: clear, mucosa moist Neck: soft tissue: non-tender; thyroid: normal Pulmonary: clear to auscultation bilaterally, good aeration, no accessory muscle use CV: RR/RR, normal S1S2, no carotid bruit, no jugular venous distention, 2+ B DP/ PT, no edema Abdominal: soft, non-distended, non-tender, no rebound/guarding/rigidity, normoactive bowel sounds, no hepatosplenomegaly or masses, no costovertebral angle tenderness Musculoskeletal: general: grossly intact, warm & dry Integumental: normal appearance and texture of exposed skin Babinski: Psychiatric orientation: AA&O to PPS affect: calm mood: cooperative eye contact: poor content: absent responses: basic insight: poor Testing: Lab Results 11/22/16 11/22/16 11/22/16 Range/Units 18:40 18:40 18:40 WBC 15.9 H (3.5-10.8) 10^3/ul RBC 2.71 L (4.0-5.4) 10^6/ul Hgb 8.2 L (14.0-18.0) g/dl Hct 26 L (42-52) % MCV 96 H (80-94) fL MCH 30 (27-31) pg MCHC 32 (31-36) g/dl RDW 15 (10.5-15) % Plt Count 357 (150-450) 10^3/ul MPV 7 L (7.4-10.4) um3 Neut % (Auto) 81.2 (38-83) % Lymph % (Auto) 5.5 L (25-47) % [place] % (Auto) 12.4 H (1-9) % Eos % (Auto) 0.6 (0-6) % Baso % (Auto) 0.3 (0-2) % Absolute Neuts (auto) 12.9 H (1.5-7.7) 10^3/ul Absolute Lymphs (auto) 0.9 L (1.0-4.8) 10^3/ul Absolute Monos (auto) 2.0 H (0-0.8) 10^3/ul Absolute Eos (auto) 0.1 (0-0.6) 10^3/ul Absolute Basos (auto) 0 (0-0.2) 10^3/ul Absolute Nucleated RBC 0.02 10^3/ul Nucleated RBC % 0.1 INR (Anticoag Therapy) 1.08 (0.89-1.11) Sodium 141 (133-145) mmol/L Potassium 3.5 (3.5-5.0) mmol/L Chloride 110 (101-111) mmol/L Carbon Dioxide 26 (22-32) mmol/L Anion Gap 5 (2-11) mmol/L BUN 13 (6-24) mg/dL Creatinine 0.58 L (0.67-1.17) mg/dL Est GFR ( Amer) 190.7 (>60) Est GFR (Non-Af Amer) 148.3 (>60) BUN/Creatinine Ratio 22.4 H (8-20) Glucose 122 H (70-100) mg/dL Lactic Acid (0.5-2.0) mmol/L Calcium 8.4 L (8.6-10.3) mg/dL Magnesium 2.1 (1.9-2.7) mg/dL Total Bilirubin 0.20 (0.2-1.0) mg/dL AST 18 (13-39) U/L ALT 15 (7-52) U/L Alkaline Phosphatase 109 H (34-104) U/L Total Creatine Kinase 27 (10-223) U/L Total Protein 5.8 L (6.4-8.9) g/dL Albumin 2.9 L (3.2-5.2) g/dL Globulin 2.9 (2-4) g/dL Albumin/Globulin Ratio 1.0 (1-3) Carbamazepine 18.6 H* (4.0-12.0) mcg/mL 11/22/16 Range/Units 18:40 WBC (3.5-10.8) 10^3/ul RBC (4.0-5.4) 10^6/ul Hgb (14.0-18.0) g/dl Hct (42-52) % MCV (80-94) fL MCH (27-31) pg MCHC (31-36) g/dl RDW (10.5-15) % Plt Count (150-450) 10^3/ul MPV (7.4-10.4) um3 Neut % (Auto) (38-83) % Lymph % (Auto) (25-47) % [place] % (Auto) (1-9) % Eos % (Auto) (0-6) % Baso % (Auto) (0-2) % Absolute Neuts (auto) (1.5-7.7) 10^3/ul Absolute Lymphs (auto) (1.0-4.8) 10^3/ul Absolute Monos (auto) (0-0.8) 10^3/ul Absolute Eos (auto) (0-0.6) 10^3/ul Absolute Basos (auto) (0-0.2) 10^3/ul Absolute Nucleated RBC 10^3/ul Nucleated RBC % INR (Anticoag Therapy) (0.89-1.11) Sodium (133-145) mmol/L Potassium (3.5-5.0) mmol/L Chloride (101-111) mmol/L Carbon Dioxide (22-32) mmol/L Anion Gap (2-11) mmol/L BUN (6-24) mg/dL Creatinine (0.67-1.17) mg/dL Est GFR ( Amer) (>60) Est GFR (Non-Af Amer) (>60) BUN/Creatinine Ratio (8-20) Glucose (70-100) mg/dL Lactic Acid 0.8 (0.5-2.0) mmol/L Calcium (8.6-10.3) mg/dL Magnesium (1.9-2.7) mg/dL Total Bilirubin (0.2-1.0) mg/dL AST (13-39) U/L ALT (7-52) U/L Alkaline Phosphatase (34-104) U/L Total Creatine Kinase (10-223) U/L Total Protein (6.4-8.9) g/dL Albumin (3.2-5.2) g/dL Globulin (2-4) g/dL Albumin/Globulin Ratio (1-3) Carbamazepine (4.0-12.0) mcg/mL CXR, personally reviewed: IMPRESSION: LOW LUNG VOLUMES. NO ACTIVE CARDIOPULMONARY DISEASE. Impression: 51YO male HX cerebral palsy & seizure disorder presents with prolonged seizure <24 hours after discharge for same DIAGNOSIS & PLAN Primary prolonged seizure : Vero Miramontes MD neurology consulted by ED, will evaluate in AM : seizure precautions : continue anti-seizure meds x/ carbamazepine as its level is toxic; once reconciled : will use lorazepam IM/IV PRN : supportive care Secondary HTN : review meds once reconciled Admission Rational: observation for prolonged seizure DVTp: ANNE Code Status: full HCP: eligio, Sofi & Jabari [phone] H&P (11/19/2016) History & Physical Patient: JABARI HEADLEY /Age: 03 1965 51 Medical Record#: [id number] Admission Date: 11/19/16 Provider: Maude Fox MD CC: DON Soto; Dr. Jones; Dr. Miramontes * HISTORY AND PHYSICAL: DATE OF ADMISSION: 11/19/16 PRIMARY CARE PROVIDER: DON Soto CHIEF COMPLAINT: Prolonged seizure. HISTORY OF PRESENT ILLNESS: Jabari Headley is a 51-year-old male with history of developmental delay due to cerebral palsy and subsequent development of seizure disorder. The patient has seizures frequently and usually that demonstrates with generalized tremors and more tenacity and then subsequent unresponsiveness. Today, the staff noted that the patient's unresponsiveness after the seizure was prolonged for approximately 15 minutes and they called 911 as per protocol. The patient slowly regained consciousness when in the emergency department. He, is at this point, neurologically back to his baseline which is minimal verbalization and not able to follow commands. The patient was noted to have marked elevation of white blood cell count meeting SIRS criteria. He is going to be placed on observation. Please note that the staff member from [facility] where the patient is a resident of noted that the patient had an episode of very hard stool within past 24 hours and subsequent several loose stools. The patient also had an episode of nausea and vomiting x1. Apparently, in the facility, there had been increased incidence of diarrheal illness in the residence in the past several days. PAST MEDICAL HISTORY: 1. History of hypertension. 2. History of strabismus. 3. History of disease. 4. History of cerebral palsy with subsequent hemiplegia. 5. History of seizure disorder. 6. History of recent colonoscopy at the end of October of 2016 with several polyps removed. 7. History of recent hemorrhoidal banding performed surgically at our facility by Dr. Morris on 10/25/16. MEDICATIONS: Include: 1. Multivitamin 1 tablet daily. 2. Benztropine, which is Cogentin 1 mg daily. 3. Ability 10 mg daily. 4. Zofran 8 mg on a p.r.n. basis. 5. Fiber laxative 1 tablet daily. 6. Lamictal 250 mg in the morning and 350 mg in p.m. 7. [place] 300 mg b.i.d. 8. Lactulose p.o. 30 mL at bedtime for constipation as needed. 9. Tegretol 400 mg 3 times a day. 10. Triazolam 0.25 mg, the patient takes 3 tablets 1 hour before dental appointment. 11. Preparation H ointment 4 times a day that was prescribed for 14 days after the patient's hemorrhoidal banding. 12. Lorazepam 1 mg as needed every 6 hours for agitation. 13. Prunes, the patient receives prunes twice a day. 14. Peridex mouthwash 4 times a day. 15. Acetaminophen 650 mg on a p.r.n. basis for fever and pain. ALLERGIES: No known drug allergies. FAMILY HISTORY: Unobtainable from this basically nonverbal patient. SOCIAL HISTORY: The patient is a resident of [facility] due to his developmental delay. His surrogates are his parents, Sofi and Jabari Headley, living in [place], [place].The phone number to the patient's parents is [phone]. REVIEW OF SYSTEMS: Unobtainable from this basically nonverbal patient. The patient did state "ouch" when his abdomen was palpated. Otherwise, as above mentioned, as per the patient's aide from the house, diarrhea was noted subsequent to a large hard bowel movement within the past 24 hours, 1 episode of nausea and vomiting. No fevers and prolonged seizure as mentioned above. The patient overall has had several seizures in the past couple of weeks, which is not that unusual for him.I noted healed laceration on the patient's left side of the forehead. Apparently, he fell appropriately 2 weeks ago and hit his head. Remaining review of systems were unobtainable due to the patient being nonverbal. PHYSICAL EXAMINATION GENERAL: The patient is a pleasant 51-year-old male, who is awake and alert. The patient is nonverbal. He is able to say yes occasionally. Does not appear to be appropriately responding though and not able to follow commands. VITAL SIGNS: Blood pressure of 102/67, heart rate of 98 and regular, respiratory rate 22, oxygen saturation 96% on room air, temperature of 99.7. HEENT: Head: On the left side of the patient's forehead, he has healed scar of approximately 3 cm length from recent fall. Eyes: Extraocular muscles intact. Pupils are equal and reactive to light and accommodation. Oropharynx clear. Mucosa moist. NECK: Supple. No JVD. No bruits bilaterally. RESPIRATORY: Clear to auscultation bilaterally. CARDIOVASCULAR: Regular rate and rhythm. No murmur. ABDOMEN: Soft, mildly diffusely tender. There is no rebound, no guarding. Bowel sounds present in all 4 quadrants. EXTREMITIES: There is no edema. Pulses +2 bilaterally. No clubbing or cyanosis. NEURO EVALUATION: Difficult to obtain in this patient who does not follow commands. The patient has very limited verbalization. He appears to have mild contractures about upper extremities. He withdraws to stimulation bilateral lower extremities symmetrically. SKIN: On evaluation of the skin, apart from the healed scar above the left eyebrow, there are no other abnormalities noted. DIAGNOSTIC STUDIES/LAB DATA: Showed sodium of 135, potassium 4.1, chloride 103 , carbon dioxide 22, BUN 35, creatinine 1.17, glucose of 153. Liver function tests were unremarkable. Lactic acid is pending at the time of dictation. White blood cell count 23.3, hemoglobin 11.9, hematocrit of 38, and platelets of 382. The patient has 28 bands on his differential. Urinalysis obtained via straight cath showed trace ketones, trace esterase, +1 bacteria. The patient's portable chest x-ray reviewed by myself prior to the official radiologist's report shows no infiltrates and no abnormality, cardiac silhouette noted. Brain CT and abdominal CT is pending at the time of dictation. The patient's carbamazepine level was 15.8, an upper limit of normal was 12. This was performed at 1:45 a.m. ASSESSMENT AND PLAN: 1. Prolonged seizure in the face of the patient with marked leukocytosis, recent history of diarrhea, and abdominal tenderness on evaluation. At this point, the lower seizure threshold is most likely due to generalized illness. Possibly viral gastroenteritis with the patient's history of colonoscopy within the past month and history of hemorrhoidal banding within the past 3 weeks, I will obtain plain CT of the abdomen to rule out any marked gross abnormality. Due to marked leukocytosis and bandemia, the patient is going to be placed on empiric ceftriaxone and Flagyl. I will order stool test for Clostridium difficile. The patient is going to be placed on intravenous hydration and clear liquid diet for the time being. Although due to recent seizure, I will ask our Speech Therapy to see the patient for swallow evaluation. 2. In regards to the patient's prolonged seizure, I will not change the patient 's antiepileptic medications. Although the patient's carbamazepine level was slightly higher at 1:45 a.m., that was not a level obtained just prior to the next dose which the patient, I believe, would receive around 8 or 9 a[address] I will also place the patient on seizure precautions. 3. For DVT prophylaxis, the patient is going to be placed on heparin subcutaneously. 4. Code status. The patient's code status is full. His surrogates are his parents from [place], [place].TIME SPENT: Approximately 62 minutes was spent on admission of this patient, more than half that time was spent face-to- face with the patient during the evaluation. [id number]/[facility] #: [id number] Maude Fox MD Dictated Date/Time: 11/19/16 0537 Transcribed Date/Time 11/19/16 0906 Copy to: CC: Maude Fox MD Discharge Summary (11/21/2016) Discharge Summary Patient: JABARI HEADLEY /Age: 03 1965 51 Medical Record#: [id number] Admission Date: 11/19/16 Provider: Camden Cast MD CC: Cheyenne Torres; Dr. Jones; Dr. Miramontes * DISCHARGE SUMMARY: DATE OF ADMISSION: 11/19/16 DATE OF DISCHARGE: 11/21/16 PRIMARY CARE PHYSICIAN: Cheyenne Torres. PRINCIPAL DISCHARGE DIAGNOSES: 1. Infectious colitis. 2. Seizure disorder. SECONDARY DIAGNOSES: 1. History of cerebral palsy. 2. Recent hemorrhoidal banding. DISCHARGE MEDICATIONS: 1. Ciprofloxacin 500 mg by mouth 3 times daily. 2. Metronidazole 500 mg by mouth 3 times daily. 3. Carbamazepine 400 mg by mouth 3 times daily. 4. Fleet enema 1 bottle per rectum every 72 hours as needed for constipation. 5. Triazolam 0.25 mg by mouth 3 times daily. 6. Seroquel 150 mg by mouth at bedtime. 7. Multivitamin 1 tablet by mouth daily. 8. Ativan 1 mg by mouth every 6 hours as needed for agitation. 9. [place] 300 mg by mouth 3 times daily. 10. Benztropine 1 mg by mouth daily. 11. Fiber-Lax 625 mg by mouth daily. 12. Abilify 10 mg by mouth daily. 13. Tylenol 650 mg by mouth every 4 hours as needed for pain. 14. Lactulose 30 mL by mouth at bedtime as needed for constipation. 15. Lamotrigine 200 mg by mouth in the morning and 300 mg by mouth in the evening. 16. Zofran 8 mg by mouth 3 times daily as needed for nausea. STUDIES DONE DURING HOSPITALIZATION: Chest x-ray, impression: No active cardiopulmonary disease. CT abdomen and pelvis: Mucosal thickening of the descending and sigmoid colon with pericolonic inflammatory change. Appearance is most suggestive of colitis. Differential includes inflammatory, infectious or ischemic colitis. HISTORY OF PRESENT ILLNESS AND HOSPITAL SUMMARY: Please see the full history and physical by Dr. Maude Fox for full details. Briefly, Mr. Headley is a 51 -year- old man with past medical history of developmental delay, cerebral palsy , seizure disorder, who presented to the hospital with what seemed like a prolonged seizure in the setting of recent diarrhea and abdominal pain. On admission, the patient was noted to have an elevated white blood cell count of 23 with 28% bands and a lactic acidosis as well as a fever. CT scan showed evidence of colitis and it was felt that it is most likely due to an infectious cause as there were other residents who had similar symptoms. The patient was started on IV antibiotics and over the following days, his symptoms improved. He had no further diarrhea here in the hospital and his abdominal pain resolved. He was able to tolerate a regular diet with no issues. At the time of discharge, his C. diff was negative and stool culture was still pending. Fecal lactoferrin was positive as well as a fecal occult blood test. In regards to the patient's seizure, it was felt that his seizure threshold was likely lower due to this infection, so no changes were made to his medications. He initially was refusing to take his oral medications, so he received 1 dose of Keppra, but by the evening he was more agreeable and was restarted back on his home regimen. The patient will be discharged home with oral antibiotics, can follow up with his PCP as an outpatient. No other medication changes were made on this admission. TIME SPENT: Total time spent on this discharge, 45 minutes. This is a summary of the hospitalization. Please see the full medical record for further details. [id number] #: [id number] <Electronically signed by Camden Cast MD> 11/22/16 1515 Camden Cast MD Dictated Date/Time: 11/21/16 1451 Transcribed Date/Time 11/21/16 2247 Copy to: CC: Camden Cast MD; Roberta Jones MD; Cheyenne Torres NP
[2016-11-22] MEDS ORDERED: Ondansetron INJ* 2 MG/ML VIAL IV PRN (21:22)
[2016-11-22] MEDS: NS 0.9% 1000 ML* 1,000 ML IV SCH (22:00)
[2016-11-23] MEDS: Omeprazole CAP* 20 MG PO SCH (05:41)
[2016-11-23] MEDS: Acetaminophen TAB* 325 MG PO PRN ×3 (05:53→18:35)
[2016-11-23] MEDS: Ciprofloxacin TAB* 500 MG PO SCH ×2 (08:59→21:17)
[2016-11-23] MEDS: lamoTRIgine TAB(*) 100 MG PO SCH ×2 (08:59→18:36)
[2016-11-23] MEDS: ARIPiprazole TAB* 5 MG PO SCH (09:01)
[2016-11-23] MEDS: Lithium Carbonate TAB* 300 MG PO SCH ×2 (09:04→21:18)
[2016-11-23] MEDS: metroNIDAZOLE TAB* 250 MG PO SCH ×3 (09:06→21:18)
[2016-11-23] MEDS: Triazolam TAB* 0.25 MG PO SCH ×3 (09:06→21:16)
[2016-11-23] MEDS: Benztropine TAB* 1 MG PO SCH (09:07)
[2016-11-23] MEDS: Calcium Polycarbophil TAB* 625 MG PO SCH ×2 (09:08→11:50)
[2016-11-23] MEDS: LORazepam TAB(*) 1 MG PO PRN ×2 (13:14→21:18)
[2016-11-23] MEDS: NS 0.9% 1000 ML* 1,000 ML IV SCH (20:21)
[2016-11-23] MEDS: QUEtiapine TAB* 100 MG PO SCH (21:16)
--- NOTE | 2016-11-24 00:26 | CONS ---
NEUROLOGY CONSULTATION: DATE OF CONSULT: 11/23/16 LOCATION: The patient is inpatient on [address] REQUESTING PROVIDERS: Dr. Daniel Walker and Dr. Corby Young. REASON FOR CONSULT: Reported prolonged seizure. HISTORY OF PRESENT ILLNESS: Steven Headley is a 51-year-old man with a past history of cerebral palsy, medically refractory epilepsy, hypertension, and recent diagnosis of infectious colitis, on antibiotics, who was brought back to the emergency department yesterday after reportedly having a prolonged seizure at his intermediate. His evening service aide was with him tonight when I evaluated the patient and reported that he observed a 15-minute episode of unresponsiveness while the patient was seated in a chair associated with his eyes appearing rolled up and intermittently the patient was trying to get up and out of the chair. There may have been some fine tremulousness with this event, but there was no pedro body jerking. In addition, his service aide states that this was unusual for his typical events and not really like anything he had seen with prior seizures. He further states that over the past couple of weeks, Steven has appeared more lethargic. He feels that the seizures have been increasing in frequency over the past several months, though I reviewed a recent outpatient note from September of this year where the patient was seen by Dr. Jones and the seizure tally appeared to be improved compared to previous 6 months. The intermediate had contacted our office at the end of October regarding a prolonged seizure and a lamotrigine level was checked and his dose of lamotrigine was increased to 200 mg in the morning and 300 mg at night. He was recently admitted for infectious colitis and was placed on Cipro and Flagyl. His seizure medications include lamotrigine as mentioned above as well as carbamazepine 400 mg 3 times daily. Ciprofloxacin interacts with carbamazepine such that it increases the carbamazepine levels and his level was noted to be elevated at 18.7 upon his admission last evening. Subsequently, his carbamazepine has been held. Neurology consultation is requested secondary to this presumed prolonged seizure. PAST MEDICAL HISTORY: 1. Hypertension. 2. Cerebral palsy. 3. Medically refractory epilepsy. 4. Strabismus. 5. Infectious colitis. 6. Hemorrhoidal banding performed recently in October by Dr. Morris. HOME MEDICATIONS: 1. Multivitamin. 2. Aripiprazole 10 mg daily. 3. Tylenol as needed. 4. Fiber-Lax in the morning. 5. Fleet Enema as needed. 6. Halcion 0.25 mg t.i.d. 7. Benztropine 1 mg q.a.m. 8. Ativan 1 mg q.6 p.r.n. 9. [place] 300 mg twice daily. 10. Seroquel 150 mg at bedtime. 11. Carbamazepine 400 mg t.i.d. 12. Lactulose 30 mL at bedtime as needed. 13. Lamotrigine 200 mg q.a.m. and 300 mg q.p.m. 14. Zofran 8 mg b.i.d. p.r.n. 15. Ciprofloxacin 500 mg b.i.d. 16. Flagyl 500 mg t.i.d. ALLERGIES: No known drug allergies. REVIEW OF SYSTEMS: In addition to the above, his service aide notes that he has had more difficulty ambulating over the past several months and tends to lean to the left. He used to be able to ambulate relatively independently and now requires assistance from caretakers. PHYSICAL EXAM: Vital Signs: Temperature 99.8, blood pressure 119/50, heart rate 82, oxygen saturation is 96% on room air. On general examination, Steven was initially sleeping comfortably in his hospital bed. His service aide indicated that he had been somewhat restless all day and had fallen asleep within the past hour. Once he woke up, he was very uncooperative with the examination and therefore it was limited. Heart was in a regular rate and rhythm with no murmurs, rubs, or gallops. His lungs were clear anteriorly to auscultation. He has mild dysmorphic facies. On neurologic exam, he was noted to say "leave me alone, go away" as well as "stop that." He forcefully closed his eyes against the examiner and would not open them. His face appeared symmetric. He would not protrude his tongue. His hearing was intact to voice. He resisted movement in all 4 extremities equally. He responded to touch equally in all 4 extremities. Reflexes were 3+ in the upper extremities and knees with clonus in the ankles bilaterally. DIAGNOSTIC STUDIES/LAB DATA: CBC was notable for a white count of 15.9, hematocrit of 26, and platelet count of 357. He has elevated absolute neutrophils of 12.9, which has improved from 20.4 on 11/19/16. His chemistry panel shows an elevated BUN to creatinine ratio of 22.4, calcium 8.4, alkaline phosphatase of 109. AST and ALT are normal and the total protein is 5.8 and albumin 2.9. As mentioned, carbamazepine level collected at 1840 last evening was 18.6. When checked at 0619 on 11/20/16, it was 9. Lamotrigine level on was 6.5. Brain CT from 11/14/16 was reviewed and shows encephalomalacia in the bilateral parietooccipital region, which is stable. IMPRESSION: Jabari Headley is a 51-year-old man with a history of cerebral palsy and medically refractory epilepsy, who is being treated for infectious colitis and was readmitted to the hospital yesterday after a presumed prolonged seizure at his intermediate. I am not certain whether the event that led to this admission was a seizure or not given the description of his service aide who reports that this event was not characteristic for his typical seizures. His carbamazepine level is elevated at 18, which is likely due to the interaction with ciprofloxacin and is currently being held. I am trying to get in touch with Dr. Young to discuss whether there is any other suitable antibiotic, which would not interact with his Tegretol. I will check a Tegretol level tomorrow morning as well. His lamotrigine should be continued at this time. In some cases, high or toxic levels of antiepileptics can also trigger a seizure and his seizure threshold is also likely reduced in the setting of his current infection. If he has another seizure during his admission here, his lamotrigine dose could be further increased to 300 mg twice daily. I will follow up his carbamazepine level tomorrow. Thank you for this consultation. [id number]/[facility] #: [id number] PAM
[2016-11-24] MEDS: Omeprazole CAP* 20 MG PO SCH (05:55)
[2016-11-24 06:00] LABS: Hematocrit 24 % (42-52); Hemoglobin 7.6 g/dl (14.0-18.0); Mean Corpuscular HGB Conc 31 g/dl (31-36); Mean Corpuscular Hemoglobin 30 pg (27-31); Mean Corpuscular Volume 95 fL (80-94); Mean Platelet Volume 7 um3 (7.4-10.4); Red Blood Count 2.55 10^6/ul (4.0-5.4); Red Cell Distribution Width 15 % (10.5-15); White Blood Count 12.5 10^3/ul (3.5-10.8)
[2016-11-24 06:05] LABS: Anion Gap 4 mmol/L (2-11); BUN/Creatinine Ratio 17.5 (8-20); Blood Urea Nitrogen 10 mg/dL (6-24); CO2 Carbon Dioxide 26 mmol/L (22-32); Calcium 7.9 mg/dL (8.6-10.3); Chloride 116 mmol/L (101-111); EGFR African American 194.6 (>60); EGFR Non-African American 151.3 (>60); Glucose 107 mg/dL (70-100); Potassium 3.2 mmol/L (3.5-5.0); Sodium 146 mmol/L (133-145)
[2016-11-24 06:06] LABS: Carbamazepine 6.2 mcg/mL (4.0-12.0)
--- NOTE | 2016-11-24 06:42 | PN ---
Subjective Date of Service: 11/23/16 Interval History: Interviewed and examined patient at bedside; Discussed case with Dr. Cast ; Reviewed previous notes and radiology results; Patient trying to get out of bed; uncooperative. Not communicative. [employer] Justice in room; described prolonged episode of unresponsiveness but some intentional movements during that time that are atypical (see neurology c/s) no recent diarrhea --> will dc antibiotics by AM if no recurrence. at this point , potential harm of interaction outweighs benefit given clinical status. Family History: Unchanged from Admission Social History: Unchanged from Admission Past Medical History: Unchanged from Admission Objective Active Medications: . Acetaminophen (Tylenol Tab*) 650 mg PO Q6H PRN PRN Reason: FEVER/PAIN Last Admin: 11/23/16 18:35 Dose: 650 mg [facility] ([facility]*) [facility] Last Admin: 11/23/16 09:01 Dose: 10 mg Benztropine Mesylate (Cogentin Tab*) [facility] Last Admin: 11/23/16 09:07 Dose: 1 mg Calcium Polycarbophil (Fibercon Tab*) [facility] Last Admin: 11/23/16 11:50 Dose: Not Given Carbamazepine (Tegretol Xr Tab(*)) 400 mg PO TID [facility] Potassium Chloride/Sodium Chloride (Ns 0.45% Kcl 20 Meq 1000 Ml*) 1,000 mls @ 75 mls/hr IV PER RATE [facility] Stop: 11/24/16 20:19 Lactulose (Lactulose*) 30 ml PO BEDTIME PRN PRN Reason: CONSTIPATION Lamotrigine (Lamictal Tab(*)) 200 mg PO QAM [facility] Last Admin: 11/23/16 08:59 Dose: 200 mg Lamotrigine (Lamictal Tab(*)) 300 mg PO QPM [facility] Last Admin: 11/23/16 18:36 Dose: 300 mg [place] Carbonate ([place] Carbonate Tab*) 300 mg PO BID [facility] Last Admin: 11/23/16 21:18 Dose: 300 mg Lorazepam (Ativan Tab(*)) 1 mg PO Q6H PRN PRN Reason: AGITATION - DANGEROUS Last Admin: 11/23/16 21:18 Dose: 1 mg Omeprazole (Prilosec Cap*) 20 mg PO DAILY@0600 [facility] Last Admin: 11/24/16 05:55 Dose: 20 mg Ondansetron HCl (Zofran Inj*) 4 mg IV Q6H PRN PRN Reason: NAUSEA Last Admin: 11/23/16 12:52 Dose: 4 mg Quetiapine Fumarate (Seroquel Tab*) 150 mg PO BEDTIME [facility] Last Admin: 11/23/16 21:16 Dose: 150 mg Triazolam (Halcion Tab*) 0.25 mg PO TID [facility] Last Admin: 11/23/16 21:16 Dose: 0.25 mg . Appearance: Cerebral palsy; does not provide medical history or communicate directly Ears/Nose/Mouth/Throat: Clear Oropharnyx Neck: Trachea Midline Respiratory: Symmetrical Chest Expansion and Respiratory Effort Cardiovascular: NL Sounds; No Murmurs; No JVD Abdominal: NL Sounds; No Tenderness; No Distention Lymphatic: No Cervical Adenopathy Extremities: No Edema Skin: No Rash or Ulcers Lines/Tubes/Other Access: Clean, Dry and Intact Peripheral IV Nutrition: Taking PO's Result Diagrams: 11/24/16 05:13 11/24/16 05:13 Assess/Plan/Problems-Billing . Assessment: 51 yo man with epilepsy; recently dc'd from [facility] to [facility] with infectious colitis treated with abx regimen that certainly would lower seizure threshold AND interact with his meds Then, reported prolonged episode at [facility] that may have been a seizure, though it was atypical in certain respects. Plan at this point is to dc antibiotics, as patient is no longer having diarrhea. [elevated WBC may be residual. low grade temp. noted] Entire colitis episode may have been be viral as other residents at [facility] had similar diarrheal illness. Will continue gentle hydration and electrolyte management. upgrade to full admission given ongoing active management of epilepsy and concurrent infection with high risk for deterioration/recurrent seizure. appreciate neurology consultation. - Patient Problems (1) Seizure disorder Current Visit: No Status: Acute Priority: High Code(s): G40.909 - EPILEPSY , UNSP, NOT INTRACTABLE, WITHOUT STATUS EPILEPTICUS Comment: - Appreciate neurology consult - Continue home Lamictal; holding carbamazepine until AM labs back. - Will dc antibiotics (cipro and flagyl); will resart carbamazepine if levels appreciably better. - Change to admit status - seizure precautions in place - monitor in room (2) Colitis Current Visit: No Status: Resolved Code(s): K52.9 - NONINFECTIVE GASTROENTERITIS AND COLITIS, UNSPECIFIED Comment: - no current diarrhea - stop Abx - ? viral infection given low grade temp (3) Severe anemia Current Visit: Yes Status: Acute Priority: High Code(s): D64.9 - ANEMIA, UNSPECIFIED Comment: - check iron levels - consider transfusion if hgb falls below 7. - start oral iron.
[2016-11-24] MEDS ORDERED: NS 0.45% KCl 20 Meq 1000 ML* 1,000 ML IV SCH (07:00)
[2016-11-24 07:55] LABS: Total Iron Binding Capacity 242 mcg/dL (250-450); Transferrin 173 mg/dL (203-362)
[2016-11-24 08:01] LABS: Iron < 15 ug/dL (50-212)
[2016-11-24 08:16] LABS: Ferritin 58.6 ng/mL (24-336)
[2016-11-24 08:29] LABS: Immature Retic Fraction 0.66
[2016-11-24 08:35] LABS: Corrected Retic Count 0.9 % (0.5-1.5)
[2016-11-24] MEDS: Lithium Carbonate TAB* 300 MG PO SCH ×2 (08:59→21:26)
[2016-11-24] MEDS: Calcium Polycarbophil TAB* 625 MG PO SCH (09:00)
[2016-11-24] MEDS: ARIPiprazole TAB* 5 MG PO SCH (09:00)
[2016-11-24] MEDS: Triazolam TAB* 0.25 MG PO SCH ×3 (09:00→21:26)
[2016-11-24] MEDS: Benztropine TAB* 1 MG PO SCH (09:00)
[2016-11-24] MEDS: lamoTRIgine TAB(*) 100 MG PO SCH ×4 (09:00→19:31)
[2016-11-24] MEDS: carBAMazepine ER TAB(*) 200 MG PO SCH ×3 (09:03→21:27)
[2016-11-24] MEDS: QUEtiapine TAB* 100 MG PO SCH (21:27)
[2016-11-25 04:55] LABS: Hematocrit 27 % (42-52); Hemoglobin 8.7 g/dl (14.0-18.0); Mean Corpuscular HGB Conc 32 g/dl (31-36); Mean Corpuscular Hemoglobin 30 pg (27-31); Mean Corpuscular Volume 93 fL (80-94); Mean Platelet Volume 7 um3 (7.4-10.4); Red Blood Count 2.94 10^6/ul (4.0-5.4); Red Cell Distribution Width 17 % (10.5-15); White Blood Count 10.8 10^3/ul (3.5-10.8)
[2016-11-25 05:15] LABS: Albumin 2.6 g/dL (3.2-5.2); BUN/Creatinine Ratio 20.4 (8-20); Calcium 7.9 mg/dL (8.6-10.3); EGFR African American 207.1 (>60); EGFR Non-African American 161.1 (>60); Globulin 2.7 g/dL (2-4); Potassium 3.2 mmol/L (3.5-5.0); Total Bilirubin 0.2 mg/dL (0.2-1.0); Total Protein 5.3 g/dL (6.4-8.9)
[2016-11-25] MEDS: Omeprazole CAP* 20 MG PO SCH (05:52)
[2016-11-25] MEDS: carBAMazepine ER TAB(*) 200 MG PO SCH ×3 (09:06→19:33)
[2016-11-25] MEDS: ARIPiprazole TAB* 5 MG PO SCH (09:06)
[2016-11-25] MEDS: Benztropine TAB* 1 MG PO SCH (09:06)
[2016-11-25] MEDS: Lithium Carbonate TAB* 300 MG PO SCH ×2 (09:06→19:32)
[2016-11-25] MEDS: lamoTRIgine TAB(*) 100 MG PO SCH ×2 (09:06→17:53)
[2016-11-25] MEDS: Triazolam TAB* 0.25 MG PO SCH ×3 (09:06→19:32)
[2016-11-25] MEDS: Calcium Polycarbophil TAB* 625 MG PO SCH (09:06)
[2016-11-25] MEDS: D5W 1/2 NS 40 Meq KCL 1000 ML* 1,000 ML IV SCH ×2 (12:40→18:30)
--- NOTE | 2016-11-25 17:54 | PN ---
Subjective Date of Service: 11/24/16 Interval History: . tegretol levle better diarrhea has improved (decreased) will stop antibiotics to avoid interaction that was proposed by neuro consult ( and that I think is fairly likely). called mother to discuss case -- that he is getting hydrated Also, will give 1 unit prbc for rather severe anemia -- he had developed anemia related to a hemmorhoidal procedure (banding?) Will watch closely... Updated [facility] personnel present in room. Family History: Unchanged from Admission Social History: Unchanged from Admission Past Medical History: Unchanged from Admission Objective Active Medications: . Acetaminophen (Tylenol Tab*) 650 mg PO Q6H PRN PRN Reason: FEVER/PAIN Last Admin: 11/23/16 18:35 Dose: 650 mg Aripiprazole (Abilify Tab*) [facility] [place] Last Admin: 11/25/16 09:06 Dose: 10 mg Benztropine Mesylate (Cogentin Tab*) 1 mg PO QAM [facility] Last Admin: 11/25/16 09:06 Dose: 1 mg Calcium Polycarbophil (Fibercon Tab*) 625 mg PO QAM [facility] Last Admin: 11/25/16 09:06 Dose: 625 mg Carbamazepine (Tegretol Xr Tab(*)) 400 mg PO TID [facility] Last Admin: 11/25/16 14:20 Dose: 400 mg Potassium Chloride/Dextrose (D5w 1/2 Ns 40 Meq Kcl 1000 Ml*) 1,000 mls @ 175 mls/hr IV PER RATE [facility] Stop: 11/26/16 17:43 Last Admin: 11/25/16 12:40 Dose: 175 mls/hr Lactulose (Lactulose*) 30 ml PO BEDTIME PRN PRN Reason: CONSTIPATION Lamotrigine (Lamictal Tab(*)) 200 mg PO QAM [facility] Last Admin: 11/25/16 09:06 Dose: 200 mg Lamotrigine (Lamictal Tab(*)) 300 mg PO QPM [facility] Last Admin: 11/24/16 19:31 Dose: Not Given [place] Carbonate ([place] Carbonate Tab*) 300 mg PO BID [facility] Last Admin: 11/25/16 09:06 Dose: 300 mg Lorazepam (Ativan Tab(*)) 1 mg PO Q6H PRN PRN Reason: AGITATION - DANGEROUS Last Admin: 11/23/16 21:18 Dose: 1 mg Omeprazole (Prilosec Cap*) 20 mg PO DAILY@0600 [facility] Last Admin: 11/25/16 05:52 Dose: 20 mg Ondansetron HCl (Zofran Inj*) 4 mg IV Q6H PRN PRN Reason: NAUSEA Last Admin: 11/23/16 12:52 Dose: 4 mg Quetiapine Fumarate (Seroquel Tab*) 150 mg PO BEDTIME [facility] Last Admin: 11/24/16 21:27 Dose: Not Given Triazolam (Halcion Tab*) 0.25 mg PO TID [facility] Last Admin: 11/25/16 14:21 Dose: 0.25 mg . Vital Signs 11/24/16 11/24/16 11/24/16 19:41 20:00 20:25 Temperature 97.2 F Pulse Rate 76 78 Respiratory 22 20 Rate Blood Pressure 144/62 101/67 (mmHg) O2 Sat by Pulse 97 97 Oximetry 11/24/16 11/24/16 11/24/16 20:34 20:50 22:42 Temperature 100.5 F 99.8 F 100.0 F Pulse Rate 76 78 78 Respiratory 20 20 24 Rate Blood Pressure 101/67 121/69 125/60 (mmHg) O2 Sat by Pulse Oximetry Oxygen Devices in Use Now: None Appearance: developmental delay noted. Ears/Nose/Mouth/Throat: Clear Oropharnyx Neck: NL Appearance and Movements; NL JVP Respiratory: Symmetrical Chest Expansion and Respiratory Effort Cardiovascular: NL Sounds; No Murmurs; No JVD Abdominal: NL Sounds; No Tenderness; No Distention Lymphatic: No Cervical Adenopathy Extremities: No Edema Skin: No Rash or Ulcers Lines/Tubes/Other Access: Clean, Dry and Intact Peripheral IV Nutrition: Taking PO's Result Diagrams: 11/25/16 04:35 11/25/16 04:35 Assess/Plan/Problems-Billing . Assessment: 51 yo man with epilepsy; recently [place] [facility] [place] [facility] with infectious colitis treated with abx regimen that certainly would lower seizure threshold AND interact with his meds Then, reported prolonged episode at [facility] that may have been a seizure, though it was atypical in certain respects. Plan at this point is to dc antibiotics, as patient is no longer having diarrhea. [elevated WBC may be residual. low grade temp. noted] Entire colitis episode may have been be viral as other residents at [facility] had similar diarrheal illness. Will continue gentle hydration and electrolyte management. upgrade to full admission given ongoing active management of epilepsy and concurrent infection with high risk for deterioration/recurrent seizure. appreciate neurology consultation. - Patient Problems (1) Seizure disorder Current Visit: No Status: Acute Priority: High Code(s): G40.909 - EPILEPSY , UNSP, NOT INTRACTABLE, WITHOUT STATUS EPILEPTICUS Comment: - Appreciate neurology consult - Continue home Lamictal; restart carbamazepine given normal level. - Dc antibiotics (cipro and flagyl); - full admission status - seizure precautions in place - monitor in room (2) Severe anemia Current Visit: Yes Status: Acute Priority: High Code(s): D64.9 - ANEMIA, UNSPECIFIED Comment: - transfuse 1 unit prbc - start oral iron.
--- NOTE | 2016-11-25 18:00 | PN ---
Subjective Date of Service: 11/25/16 Interval History: . Hgb a bit better still hypernatremic despite 1/2 NS with potassium (for hypokalemia) no new s/sx -- just ongoing observed lethargy and low grade temps. Updated mother again over phone as well as [employer] monitor. Hopeful that better hydration and electrolyte management will result in improved mental status. poor appetite reported by staff. some loose stools, but not outright diarrhea. Family History: Unchanged from Admission Social History: Unchanged from Admission Past Medical History: Unchanged from Admission Objective Active Medications: . Acetaminophen (Tylenol Tab*) 650 mg PO Q6H PRN PRN Reason: FEVER/PAIN Last Admin: 11/23/16 18:35 Dose: 650 mg Aripiprazole (Abilify Tab*) [facility] [place] Last Admin: 11/25/16 09:06 Dose: 10 mg Benztropine Mesylate (Cogentin Tab*) [facility] [place] Last Admin: 11/25/16 09:06 Dose: 1 mg Calcium Polycarbophil (Fibercon Tab*) [facility] [place] Last Admin: 11/25/16 09:06 Dose: 625 mg Carbamazepine (Tegretol Xr Tab(*)) 400 mg PO TID [facility] Last Admin: 11/25/16 14:20 Dose: 400 mg Potassium Chloride/Dextrose (D5w 1/2 Ns 40 Meq Kcl 1000 Ml*) 1,000 mls @ 175 mls/hr IV PER RATE [facility] Stop: 11/26/16 17:43 Last Admin: 11/25/16 12:40 Dose: 175 mls/hr Lactulose (Lactulose*) 30 ml PO BEDTIME PRN PRN Reason: CONSTIPATION Lamotrigine (Lamictal Tab(*)) 200 mg PO QAM [facility] Last Admin: 11/25/16 09:06 Dose: 200 mg Lamotrigine (Lamictal Tab(*)) 300 mg PO QPM [facility] Last Admin: 11/25/16 17:53 Dose: 300 mg [place] Carbonate ([place] Carbonate Tab*) 300 mg PO BID [facility] Last Admin: 11/25/16 09:06 Dose: 300 mg Lorazepam (Ativan Tab(*)) 1 mg PO Q6H PRN PRN Reason: AGITATION - DANGEROUS Last Admin: 07/18/17 21:18 Dose: 1 mg Omeprazole (Prilosec Cap*) 20 mg PO DAILY@0600 [facility] Last Admin: 11/25/16 05:52 Dose: 20 mg Ondansetron HCl (Zofran Inj*) 4 mg IV Q6H PRN PRN Reason: NAUSEA Last Admin: 11/23/16 12:52 Dose: 4 mg Quetiapine Fumarate (Seroquel Tab*) 150 mg PO BEDTIME [facility] Last Admin: 11/24/16 21:27 Dose: Not Given Triazolam (Halcion Tab*) 0.25 mg PO TID [facility] Last Admin: 11/25/16 14:21 Dose: 0.25 mg . Vital Signs 11/24/16 11/24/16 11/24/16 19:41 20:00 20:25 Temperature 97.2 F Pulse Rate 76 78 Respiratory 22 20 Rate Blood Pressure 144/62 101/67 (mmHg) O2 Sat by Pulse 97 97 Oximetry 11/24/16 11/24/16 11/24/16 20:34 20:50 22:42 Temperature 100.5 F 99.8 F 100.0 F Pulse Rate 76 78 78 Respiratory 20 20 24 Rate Blood Pressure 101/67 121/69 125/60 (mmHg) O2 Sat by Pulse Oximetry Oxygen Devices in Use Now: None Appearance: NAD; DD noted Ears/Nose/Mouth/Throat: Clear Oropharnyx Neck: Trachea Midline Respiratory: Symmetrical Chest Expansion and Respiratory Effort Cardiovascular: NL Sounds; No Murmurs; No JVD Abdominal: NL Sounds; No Tenderness; No Distention Lymphatic: No Cervical Adenopathy Extremities: No Edema Skin: No Rash or Ulcers, - - no skin lesions Neurological: NL Sensation Lines/Tubes/Other Access: Clean, Dry and Intact Peripheral IV Nutrition: Taking PO's Result Diagrams: 11/25/16 04:35 11/25/16 04:35 Assess/Plan/Problems-Billing . Assessment: 51 yo man with epilepsy; recently [place]'d [place] [facility] to [facility] with infectious colitis treated with abx regimen that certainly would lower seizure threshold AND interact with his meds Then, reported prolonged episode at [employer] [facility] [employer] that may have been a seizure, though it was atypical in certain respects. Plan at this point is to dc antibiotics, as patient is no longer having diarrhea. [elevated WBC may be residual. low grade temp. noted] Entire colitis episode may have been be viral as other residents at [employer] [facility] [employer] had similar diarrheal illness. Will continue gentle hydration and electrolyte management. upgrade to full admission given ongoing active management of epilepsy and concurrent infection with high risk for deterioration/recurrent seizure. appreciate neurology consultation. - Patient Problems (1) Seizure disorder Current Visit: No Status: Acute Priority: High Code(s): G40.909 - EPILEPSY , UNSP, NOT INTRACTABLE, WITHOUT STATUS EPILEPTICUS Comment: - Appreciate neurology consult - Continuing home Lamictal; restarted carbamazepine given normal level. - Stopped antibiotics (cipro and flagyl); - full admission status - seizure precautions in place - monitor in room (2) Severe anemia Current Visit: Yes Status: Acute Priority: High Code(s): D64.9 - ANEMIA, UNSPECIFIED Comment: - transfused 1 unit prbc - hgb 7/6 --> 8.7 - started oral iron.
[2016-11-25] MEDS ORDERED: Magnesium Sulf 4 GM/100 ML IV* 4,000 MG/100 ML BAG IVPB ONE (18:01)
[2016-11-25] MEDS: QUEtiapine TAB* 100 MG PO SCH (19:32)
[2016-11-25] MEDS: KCL 20 MEQ/100 ML IVPREMIX* 20 MEQ/100 ML BAG IV SCH ×2 (22:53→23:58)
[2016-11-26] MEDS: KCL 20 MEQ/100 ML IVPREMIX* 20 MEQ/100 ML BAG IV SCH (01:05)
[2016-11-26] MEDS: LORazepam TAB(*) 1 MG PO PRN ×3 (02:12→16:04)
[2016-11-26] MEDS ORDERED: LORazepam INJ* 2 MG/ML 1 ML VIAL IV ONE (02:37)
[2016-11-26] MEDS ORDERED: LORazepam INJ* 2 MG/ML 1 ML VIAL ONE (02:41)
[2016-11-26] MEDS: Omeprazole CAP* 20 MG PO SCH ×2 (06:03→06:10)
[2016-11-26 06:20] LABS: Hematocrit 27 % (42-52); Hemoglobin 8.5 g/dl (14.0-18.0); Mean Corpuscular HGB Conc 31 g/dl (31-36); Mean Corpuscular Hemoglobin 29 pg (27-31); Mean Corpuscular Volume 92 fL (80-94); Mean Platelet Volume 7 um3 (7.4-10.4); Red Blood Count 2.96 10^6/ul (4.0-5.4); Red Cell Distribution Width 17 % (10.5-15); White Blood Count 14.4 10^3/ul (3.5-10.8)
[2016-11-26 06:31] LABS: BUN/Creatinine Ratio 11.5 (8-20); Calcium 7.5 mg/dL (8.6-10.3); EGFR African American 216.3 (>60); EGFR Non-African American 168.2 (>60); Magnesium 2.5 mg/dL (1.9-2.7); Phosphorus 2.1 mg/dL (2.5-5.0); Potassium 3.9 mmol/L (3.5-5.0)
[2016-11-26] MEDS: ARIPiprazole TAB* 5 MG PO SCH (09:09)
[2016-11-26] MEDS: Triazolam TAB* 0.25 MG PO SCH ×3 (09:09→19:36)
[2016-11-26] MEDS: Benztropine TAB* 1 MG PO SCH (09:09)
[2016-11-26] MEDS: Calcium Polycarbophil TAB* 625 MG PO SCH (09:10)
[2016-11-26] MEDS: carBAMazepine ER TAB(*) 200 MG PO SCH ×3 (09:10→19:35)
[2016-11-26] MEDS: Lithium Carbonate TAB* 300 MG PO SCH ×2 (09:11→19:36)
[2016-11-26] MEDS: lamoTRIgine TAB(*) 100 MG PO SCH ×2 (09:11→19:34)
[2016-11-26] MEDS: Acetaminophen TAB* 325 MG PO PRN (10:09)
[2016-11-26] MEDS ORDERED: LORazepam INJ* 2 MG/ML 1 ML VIAL IV PUSH ONE (11:58)
[2016-11-26] MEDS: QUEtiapine TAB* 100 MG PO SCH (19:35)
[2016-11-27] MEDS: LORazepam TAB(*) 1 MG PO PRN ×2 (03:01→15:37)
[2016-11-27] MEDS: Omeprazole CAP* 20 MG PO SCH (06:03)
[2016-11-27] MEDS: lamoTRIgine TAB(*) 100 MG PO SCH ×2 (08:03→17:20)
[2016-11-27] MEDS: Benztropine TAB* 1 MG PO SCH (08:03)
[2016-11-27] MEDS: Lithium Carbonate TAB* 300 MG PO SCH ×2 (08:03→21:27)
[2016-11-27] MEDS: carBAMazepine ER TAB(*) 200 MG PO SCH ×3 (08:05→21:27)
[2016-11-27] MEDS: ARIPiprazole TAB* 5 MG PO SCH (08:05)
[2016-11-27] MEDS: Triazolam TAB* 0.25 MG PO SCH ×3 (08:05→21:26)
[2016-11-27] MEDS: Calcium Polycarbophil TAB* 625 MG PO SCH (08:07)
[2016-11-27 12:00] LABS: Hematocrit 27 % (42-52); Hemoglobin 8.5 g/dl (14.0-18.0); Mean Corpuscular HGB Conc 31 g/dl (31-36); Mean Corpuscular Hemoglobin 29 pg (27-31); Mean Corpuscular Volume 93 fL (80-94); Mean Platelet Volume 7 um3 (7.4-10.4); Red Blood Count 2.94 10^6/ul (4.0-5.4); Red Cell Distribution Width 16 % (10.5-15); White Blood Count 9.8 10^3/ul (3.5-10.8)
[2016-11-27 12:12] LABS: BUN/Creatinine Ratio 14.3 (8-20); Calcium 7.5 mg/dL (8.6-10.3); EGFR African American 198.6 (>60); EGFR Non-African American 154.4 (>60); Potassium 3.8 mmol/L (3.5-5.0)
[2016-11-27] MEDS: metroNIDAZOLE TAB* 250 MG PO SCH ×2 (16:17→21:27)
[2016-11-27] MEDS: QUEtiapine TAB* 100 MG PO SCH (21:26)
[2016-11-27] MEDS ORDERED: NS 0.9% 1000 ML* 1,000 ML IV ONE (23:45)
[2016-11-28 06:07] LABS: Hematocrit 27 % (42-52); Hemoglobin 8.7 g/dl (14.0-18.0); Mean Corpuscular HGB Conc 32 g/dl (31-36); Mean Corpuscular Hemoglobin 30 pg (27-31); Mean Corpuscular Volume 93 fL (80-94); Mean Platelet Volume 7 um3 (7.4-10.4); Red Blood Count 2.91 10^6/ul (4.0-5.4); Red Cell Distribution Width 17 % (10.5-15); White Blood Count 7.6 10^3/ul (3.5-10.8)
[2016-11-28 06:21] LABS: Albumin 2.6 g/dL (3.2-5.2); BUN/Creatinine Ratio 11.3 (8-20); Calcium 7.7 mg/dL (8.6-10.3); EGFR African American 176.6 (>60); EGFR Non-African American 137.3 (>60); Globulin 2.7 g/dL (2-4); Potassium 3.9 mmol/L (3.5-5.0); Total Bilirubin 0.2 mg/dL (0.2-1.0); Total Protein 5.3 g/dL (6.4-8.9)
[2016-11-28 06:22] LABS: Carbamazepine 8.7 mcg/mL (4.0-12.0); Lithium 0.36 mmol/L (0.6-1.2)
[2016-11-28] MEDS: lamoTRIgine TAB(*) 100 MG PO SCH ×2 (08:33→18:21)
[2016-11-28] MEDS: carBAMazepine ER TAB(*) 200 MG PO SCH ×3 (08:34→19:45)
[2016-11-28] MEDS: Benztropine TAB* 1 MG PO SCH (08:34)
[2016-11-28] MEDS: metroNIDAZOLE TAB* 250 MG PO SCH ×2 (08:37→14:31)
[2016-11-28] MEDS: Calcium Polycarbophil TAB* 625 MG PO SCH (08:37)
[2016-11-28] MEDS: Lithium Carbonate TAB* 300 MG PO SCH ×2 (08:37→19:44)
[2016-11-28] MEDS: Triazolam TAB* 0.25 MG PO SCH ×3 (08:37→19:45)
[2016-11-28] MEDS: ARIPiprazole TAB* 5 MG PO SCH (08:37)
--- NOTE | 2016-11-28 10:46 | PN ---
Subjective Date of Service: 11/26/16 Interval History: . no apparent change clinically staff still saying he is "not at his baseline" considering restarting antibiotics, but would only do metronidazole if so Family History: Unchanged from Admission Social History: Unchanged from Admission Past Medical History: Unchanged from Admission Objective Active Medications: . Acetaminophen (Tylenol Tab*) 650 mg PO Q6H PRN PRN Reason: FEVER/PAIN Last Admin: 11/26/16 10:09 Dose: 650 mg [facility]ip[facility]ole ([facility]ilify [facility]*) [facility] Last Admin: 11/28/16 08:37 Dose: 10 mg Benztropine Mesylate (Cogentin Tab*) 1 mg PO QAM [facility] Last Admin: 11/28/16 08:34 Dose: 1 mg Calcium Polycarbophil (Fibercon Tab*) [facility] Last Admin: 11/28/16 08:37 Dose: 625 mg Carbamazepine (Tegretol Xr Tab(*)) 400 mg PO TID [facility] Last Admin: 11/28/16 08:34 Dose: 400 mg Lamotrigine (Lamictal Tab(*)) 200 mg PO QAM [facility] Last Admin: 11/28/16 08:33 Dose: 200 mg Lamotrigine (Lamictal Tab(*)) 300 mg PO QPM [facility] Last Admin: 11/27/16 17:20 Dose: 300 mg [place] Carbonate ([place] Carbonate Tab*) 300 mg PO BID [facility] Last Admin: 11/28/16 08:37 Dose: 300 mg Lorazepam (Ativan Tab(*)) 1 mg PO Q6H PRN PRN Reason: AGITATION Last Admin: 11/27/16 15:37 Dose: 1 mg Metronidazole (Flagyl Tab*) 500 mg PO TID [facility] Last Admin: 11/28/16 08:37 Dose: 500 mg Ondansetron HCl (Zofran Inj*) 4 mg IV Q6H PRN PRN Reason: NAUSEA Last Admin: 11/23/16 12:52 Dose: 4 mg Quetiapine Fumarate (Seroquel Tab*) 150 mg PO BEDTIME [facility] Last Admin: 11/27/16 21:26 Dose: 200 mg Triazolam (Halcion Tab*) 0.25 mg PO TID [facility] Last Admin: 11/28/16 08:37 Dose: 0.25 mg . Vital Signs 11/27/16 11/27/16 11/27/16 11:18 15:25 15:30 Temperature 97.8 F 97.7 F Pulse Rate 76 78 78 Respiratory 16 28 Rate Blood Pressure 134/75 110/63 110/63 (mmHg) O2 Sat by Pulse 94 98 98 Oximetry 11/27/16 11/27/16 11/27/16 15:37 17:15 19:50 Temperature 99.6 F Pulse Rate 69 Respiratory 18 18 20 Rate Blood Pressure 145/74 (mmHg) O2 Sat by Pulse 98 Oximetry Oxygen Devices in Use Now: None Appearance: NAD; A&Ox0; DD Ears/Nose/Mouth/Throat: Clear Oropharnyx Neck: Trachea Midline Respiratory: Symmetrical Chest Expansion and Respiratory Effort Cardiovascular: NL Sounds; No Murmurs; No JVD Abdominal: NL Sounds; No Tenderness; No Distention Lymphatic: No Cervical Adenopathy Extremities: - - 1+ lower extremity edema Skin: No Rash or Ulcers Lines/Tubes/Other Access: Clean, Dry and Intact Peripheral IV Nutrition: Taking PO's Result Diagrams: 11/28/16 05:55 11/28/16 05:55 Microbiology and Other Data: Microbiology 11/27/16 15:45 Stool Gross Appearance - Final Stool Assess/Plan/Problems-Billing . Assessment: 51 yo man with epilepsy; [place] [facility] [place] [facility] with infectious colitis treated with abx regimen that certainly would lower seizure threshold AND interact with his meds Then, reported prolonged episode at [facility] that may have been a seizure, though it was atypical in certain respects. Plan at this point is to dc antibiotics, as patient is no longer having diarrhea. [elevated WBC may be residual. low grade temp. noted] Entire colitis episode may have been be viral as other residents at [facility] had similar diarrheal illness. Will continue gentle hydration and electrolyte management. upgrade to full admission given ongoing active management of epilepsy and concurrent infection with high risk for deterioration/recurrent seizure. appreciate neurology consultation. - Patient Problems (1) Seizure disorder Current Visit: No Status: Acute Priority: High Code(s): G40.909 - EPILEPSY , UNSP, NOT INTRACTABLE, WITHOUT STATUS EPILEPTICUS Comment: - Appreciate neurology consult - Continuing home Lamictal; restarted carbamazepine given normal level. - Stopped antibiotics (cipro and flagyl); - full admission status - seizure precautions in place - monitor in room (2) Severe anemia Current Visit: Yes Status: Acute Priority: High Code(s): D64.9 - ANEMIA, UNSPECIFIED Comment: - transfused 1 unit prbc - hgb 7/6 --> 8.7 - started oral iron.
--- NOTE | 2016-11-28 10:52 | PN ---
Subjective Date of Service: 11/27/16 Interval History: . no new c/o staff from home says he is going to the a lot, but not witnessed by nursing to actually had diarrhea. Perhaps more of a behavioral issue? Updated mother again over phone. I think he might be near his actual baseline. Family History: Unchanged from Admission Social History: Unchanged from Admission Past Medical History: Unchanged from Admission Objective Active Medications: . Acetaminophen (Tylenol Tab*) 650 mg PO Q6H PRN PRN Reason: FEVER/PAIN Last Admin: 11/26/16 10:09 Dose: 650 mg Aripiprazole (Abilify Tab*) 10 mg PO QAM [facility] Last Admin: 11/28/16 08:37 Dose: 10 mg Benztropine Mesylate (Cogentin Tab*) 1 mg PO QAM [facility] Last Admin: 11/28/16 08:34 Dose: 1 mg Calcium Polycarbophil (Fibercon Tab*) 625 mg PO QAM [facility] Last Admin: 11/28/16 08:37 Dose: 625 mg Carbamazepine (Tegretol Xr Tab(*)) 400 mg PO TID [facility] Last Admin: 11/28/16 08:34 Dose: 400 mg Lamotrigine (Lamictal Tab(*)) 200 mg PO QAM [facility] Last Admin: 11/28/16 08:33 Dose: 200 mg Lamotrigine (Lamictal Tab(*)) 300 mg PO QPM [facility] Last Admin: 11/27/16 17:20 Dose: 300 mg [place] Carbonate ([place] Carbonate Tab*) 300 mg PO BID [facility] Last Admin: 11/28/16 08:37 Dose: 300 mg Lorazepam (Ativan Tab(*)) 1 mg PO Q6H PRN PRN Reason: AGITATION Last Admin: 11/27/16 15:37 Dose: 1 mg Metronidazole (Flagyl Tab*) 500 mg PO TID [facility] Last Admin: 11/28/16 08:37 Dose: 500 mg Ondansetron HCl (Zofran Inj*) 4 mg IV Q6H PRN PRN Reason: NAUSEA Last Admin: 11/23/16 12:52 Dose: 4 mg Quetiapine Fumarate (Seroquel Tab*) 150 mg PO BEDTIME [facility] Last Admin: 11/27/16 21:26 Dose: 200 mg Triazolam (Halcion Tab*) 0.25 mg PO TID [facility] Last Admin: 11/28/16 08:37 Dose: 0.25 mg Vital Signs 11/27/16 11/27/16 11/27/16 11:18 15:25 15:30 Temperature 97.8 F 97.7 F Pulse Rate 76 78 78 Respiratory 16 28 Rate Blood Pressure 134/75 110/63 110/63 (mmHg) O2 Sat by Pulse 94 98 98 Oximetry 11/27/16 11/27/16 11/27/16 15:37 17:15 19:50 Temperature 99.6 F Pulse Rate 69 Respiratory 18 18 20 Rate Blood Pressure 145/74 (mmHg) O2 Sat by Pulse 98 Oximetry Oxygen Devices in Use Now: None Appearance: DD Eyes: No Scleral Icterus Ears/Nose/Mouth/Throat: NL Teeth, Lips, Gums Neck: NL Appearance and Movements; NL JVP Respiratory: Symmetrical Chest Expansion and Respiratory Effort Cardiovascular: NL Sounds; No Murmurs; No JVD Abdominal: NL Sounds; No Tenderness; No Distention Extremities: No Edema - bilateral ankle edema, - Neurological: - - difficult to assess. Lines/Tubes/Other Access: Clean, Dry and Intact Peripheral IV Nutrition: Taking PO's Result Diagrams: 11/28/16 05:55 11/28/16 05:55 Microbiology and Other Data: Microbiology 11/27/16 15:45 Stool Gross Appearance - Final Stool Assess/Plan/Problems-Billing . Assessment: 51 yo man with epilepsy; [place] [facility] [place] [facility] with infectious colitis treated with abx regimen that certainly would lower seizure threshold AND interact with his meds Then, reported prolonged episode at [facility] that may have been a seizure, though it was atypical in certain respects. Plan at this point is to dc antibiotics, as patient is no longer having diarrhea. [elevated WBC may be residual. low grade temp. noted] Entire colitis episode may have been be viral as other residents at [facility] had similar diarrheal illness. Will continue gentle hydration and electrolyte management. upgrade to full admission given ongoing active management of epilepsy and concurrent infection with high risk for deterioration/recurrent seizure. appreciate neurology consultation. - Patient Problems (1) Seizure disorder Current Visit: No Status: Acute Priority: High Code(s): G40.909 - EPILEPSY , UNSP, NOT INTRACTABLE, WITHOUT STATUS EPILEPTICUS Comment: - Appreciate neurology consult - Continuing home Lamictal; restarted carbamazepine given normal level. - Stopped antibiotics (cipro and flagyl); restarted flagyl briefly for suspicion of further diarrhea. - full admission status - seizure precautions in place - monitor in room (2) Severe anemia Current Visit: Yes Status: Acute Priority: High Code(s): D64.9 - ANEMIA, UNSPECIFIED Comment: - transfused 1 unit prbc - hgb 7/6 --> 8.7 - started oral iron.
--- NOTE | 2016-11-28 15:14 | PN ---
Subjective Date of Service: 11/28/16 Interval History: Patient not able to make his needs known. Aide from his [facility] at bedside, states patient had some diarrhea today and ate less than usual. Family History: Unchanged from Admission Social History: Unchanged from Admission Past Medical History: Unchanged from Admission Objective Active Medications: Acetaminophen (Tylenol Tab*) 650 mg PO Q6H PRN PRN Reason: FEVER/PAIN Last Admin: 11/26/16 10:09 Dose: 650 mg Aripiprazole (Abilify Tab*) 10 mg PO QAM [facility] Last Admin: 11/28/16 08:37 Dose: 10 mg Benztropine Mesylate (Cogentin Tab*) 1 mg PO QAM [facility] Last Admin: 11/28/16 08:34 Dose: 1 mg Calcium Polycarbophil (Fibercon Tab*) 625 mg PO QAM [facility] Last Admin: 11/28/16 08:37 Dose: 625 mg Carbamazepine (Tegretol Xr Tab(*)) 400 mg PO TID [facility] Last Admin: 11/28/16 14:30 Dose: 400 mg Lamotrigine (Lamictal Tab(*)) 200 mg PO QAM [facility] Last Admin: 11/28/16 08:33 Dose: 200 mg Lamotrigine (Lamictal Tab(*)) 300 mg PO QPM [facility] Last Admin: 11/27/16 17:20 Dose: 300 mg [place] Carbonate ([place] Carbonate Tab*) 300 mg PO BID [facility] Last Admin: 11/28/16 08:37 Dose: 300 mg Lorazepam (Ativan Tab(*)) 1 mg PO Q6H PRN PRN Reason: AGITATION Last Admin: 11/27/16 15:37 Dose: 1 mg Ondansetron HCl (Zofran Inj*) 4 mg IV Q6H PRN PRN Reason: NAUSEA Last Admin: 11/23/16 12:52 Dose: 4 mg Quetiapine Fumarate (Seroquel Tab*) 150 mg PO BEDTIME [facility] Last Admin: 11/27/16 21:26 Dose: 200 mg Triazolam (Halcion Tab*) 0.25 mg PO TID [facility] Last Admin: 11/28/16 14:32 Dose: 0.25 mg Vital Signs 11/27/16 11/27/16 11/27/16 15:25 15:30 15:37 Temperature 97.7 F Pulse Rate 78 78 Respiratory 28 18 Rate Blood Pressure 110/63 110/63 (mmHg) O2 Sat by Pulse 98 98 Oximetry 11/27/16 11/27/16 11/27/16 17:15 19:50 20:00 Temperature 99.6 F Pulse Rate 69 Respiratory 18 20 18 Rate Blood Pressure 145/74 (mmHg) O2 Sat by Pulse 98 Oximetry 11/27/16 11/28/16 11/28/16 23:41 01:21 07:04 Temperature 98.1 F 97.5 F Pulse Rate 67 59 89 Respiratory 16 16 16 Rate Blood Pressure 87/38 105/55 137/76 (mmHg) O2 Sat by Pulse 98 97 83 Oximetry 11/28/16 08:00 Temperature Pulse Rate Respiratory 16 Rate Blood Pressure (mmHg) O2 Sat by Pulse Oximetry Oxygen Devices in Use Now: None Appearance: Alert, partly up in bed. Poor eye contact. Neutral affect. Motor restlessness. Eyes: No Scleral Icterus Respiratory: Symmetrical Chest Expansion and Respiratory Effort, Clear to Auscultation, Clear to Percussion - Non-verbal, ignores examiner. Got OOB with aide's assist, very poor gait. Result Diagrams: 11/28/16 05:55 11/28/16 05:55 Microbiology and Other Data: Microbiology 11/27/16 15:45 Stool Gross Appearance - Final Stool Assess/Plan/Problems-Billing . Assessment: 51 yo man with epilepsy; [place] [facility] [place] [facility] with infectious colitis treated with abx regimen that certainly would lower seizure threshold AND interact with his meds Then, reported prolonged episode at [facility] that may have been a seizure, though it was atypical in certain respects. Plan at this point is to dc antibiotics, as patient is no longer having diarrhea. [elevated WBC may be residual. low grade temp. noted] Entire colitis episode may have been be viral as other residents at [facility] had similar diarrheal illness. Will continue gentle hydration and electrolyte management. upgrade to full admission given ongoing active management of epilepsy and concurrent infection with high risk for deterioration/recurrent seizure. appreciate neurology consultation. - Patient Problems (1) Seizure disorder Current Visit: No Status: Acute Priority: High Code(s): G40.909 - EPILEPSY , UNSP, NOT INTRACTABLE, WITHOUT STATUS EPILEPTICUS SNOMED Code(s): 052251648 Comment: - Appreciate neurology consult - Continuing home Lamictal; restarted carbamazepine given normal level. - Stopped antibiotics (cipro and flagyl); restarted flagyl briefly for suspicion of further diarrhea. Should not get quinolones in the future. - full admission status - seizure precautions in place - monitor in room (2) Diarrhea Current Visit: Yes Status: Acute Code(s): R19.7 - DIARRHEA, UNSPECIFIED SNOMED Code(s): 53989172 Comment: Repeat C. difficile PCR requested. (3) Severe anemia Current Visit: Yes Status: Acute Priority: High Code(s): D64.9 - ANEMIA, UNSPECIFIED SNOMED Code(s): 353803624 Comment: - transfused 1 unit prbc - hgb 7/6 --> 8.7 Note nl ferritin, low TIBC and low Fe. Soluble transferrin receptor ordered. (4) Developmental delay, profound Current Visit: Yes Status: Acute Code(s): R62.50 - UNSP LACK OF EXPECTED NORMAL PHYSIOL DEV IN CHILDHOOD SNOMED Code(s): 012161260 Comment: Dx noted.
[2016-11-28] MEDS: QUEtiapine TAB* 100 MG PO SCH (19:44)
[2016-11-29] MEDS: LORazepam TAB(*) 1 MG PO PRN ×2 (00:19→08:09)
[2016-11-29] MEDS ORDERED: LORazepam INJ* 2 MG/ML 1 ML VIAL IV PUSH ONE (02:30)
[2016-11-29 04:14] VITALS: BP 112/60
[2016-11-29] MEDS: Lithium Carbonate TAB* 300 MG PO SCH (08:08)
[2016-11-29] MEDS: Triazolam TAB* 0.25 MG PO SCH (08:08)
[2016-11-29] MEDS: lamoTRIgine TAB(*) 100 MG PO SCH (08:08)
[2016-11-29] MEDS: Calcium Polycarbophil TAB* 625 MG PO SCH (08:08)
[2016-11-29] MEDS: Benztropine TAB* 1 MG PO SCH (08:08)
[2016-11-29] MEDS: ARIPiprazole TAB* 5 MG PO SCH (08:08)
[2016-11-29] MEDS: carBAMazepine ER TAB(*) 200 MG PO SCH (08:08)
--- NOTE | 2016-11-29 10:29 | PN ---
Progress Note - Progress Note Date of Service: 11/29/16 Note: Time spent on discharge 45 minutes.
--- NOTE | 2016-11-30 02:17 | DS ---
CC: Dr. Jones; Gerhard Selby MD * DISCHARGE SUMMARY: DATE OF ADMISSION: 11/23/16 DATE OF DISCHARGE: 11/29/16 HISTORY: This 51-year-old man was admitted because of a prolonged seizure. He has developmental delay and history was obtained from his intermediate staff. He had reported to have 2 brief seizures followed by a 15-minute period of unresponsiveness with bilateral upper extremity tremor and some stereotypic movements. The patient had been treated for his diarrhea with metronidazole and ciprofloxacin. His carbamazepine level was quite high, but may not have been a katelin level. Dr. Miramontes saw the patient in consultation. She felt that the elevated carbamazepine level of 18 was likely due to an interaction with ciprofloxacin. It was likely the seizure that he had at the intermediate was precipitated by his febrile illness in combination with the toxic level of antiepileptic. I note that his repeat carbamazepine level on 11/28/16 was 8.7, this was what he was receiving his usual dose for a couple of days. His highest temperature in the hospital was 100.8 on 11/23/16, it was 100.3 on the morning of 11/26/16, but was below 100 thereafter for the remaining 72 hours of his hospital stay. The patient's diarrhea subsided. He occasionally had about 1 lose stool a day. His oral intake was significantly less than his staff is used to seeing, and may not be adequate at this time, but I believe he is probably best served by returning to familiar surroundings with familiar staff feeding him and I think he will excelsior picker very quickly there. I note that his BUN was 7 on 11/28/16. Electrolytes were normal. Creatinine 0.62. His white blood count returned to normal on 11/27/16 and was 7.6 on 11/28/16. FINAL DIAGNOSES: 1. Seizure disorder. 2. Diarrhea with two negative C. difficile tests, suspect viral gastroenteritis. 3. Anemia. I noticed soluble transferrin receptor test was sent off as the ferritin was normal, but the iron and TIBC were both low. 4. Developmental delay. DISCHARGE MEDICATIONS: 1. Aripiprazole 10 mg a.m. 2. Multivitamin daily. 3. Acetaminophen 650 mg every 4 hours p.r.n. 4. Calcium 0.25 mg t.i.d. 5. Sodium phosphate enema every 72 hours p.r.n. 6. Calcium polycarbophil 625 mg daily. 7. Lorazepam 1 mg every 6 hours p.r.n. 8. Benztropine 1 mg daily. 9. Quetiapine 150 mg h.s. 10. Carbamazepine 400 mg t.i.d. 11. [place] 300 mg b.i.d. 12. Lamotrigine 200 mg daily. 13. Lactulose 30 mg h.s. p.r.n. 14. Ondansetron 8 mg ODT b.i.d. p.r.n. 15. Lamotrigine 300 mg every evening. [id number]/[facility] #: [id number] MTDD
--- NOTE | 2016-11-30 09:54 | ED ---
Talita Galeano Alok, scribed for Collin Gallagher MD on 11/22/16 at 1909 . Syncope/Near Syncope - HPI Summary HPI Summary: 51M presents to the ED following several seizure-like episodes today at 1615, the last of which lasted for 15 minutes. Pt's j2ee application developer states that the patient did not return to baseline mental status in between seizures before seizing again. Pt was last discharged for infectious colitis yesterday from [facility]. Pt j2ee application developer reports that the patient received her morning medications but spat up his afternoon medications at 1400. Pt takes Lamictal, Carbamazepine, and [place]. Pt's infectious colitis was treated with Cipro and Flagyl. PMHx includes developmental disorder, seizure disorder, cerebral palsy, HTN, and Reynaud's disease. - History Of Current Complaint Chief Complaint: EDSeizure Time Seen by Provider: 11/22/16 18:23 Hx Obtained From: Family/Guitar Teacher Hx From Patient Unobtainable Due To: Other - MR Onset/Duration: Lasting Minutes, Resolved Timing: Intermittent Episode Lasting - Minutes Context: Witnessed Activity At Onset: At Rest Associated Head Trauma: No Aggravating Factor(s): Nothing Alleviating Factor(s): Nothing Associated Signs And Symptoms: AMS, Seizure - Allergies/Home Medications Allergies/Adverse Reactions: Allergies Allergy/AdvReac Type Severity Reaction Status Date / Time Quinolones AdvReac See Comment Verified 11/28/16 15:15 PMH/Surg Hx/FS Hx/Imm Hx Endocrine/Hematology History: Reports: Hx Anemia - RECENT ANEMIA, BLOOD LOSS DUE TO HEMORRHOIDS Denies: Hx Anticoagulant Therapy Cardiovascular History: Reports: Hx Hypertension, Other Cardiovascular Problems/ Disorders - Raynaud's disease GI History: Reports: Other GI Disorders - chronic constipation and hemorrhoids Musculoskeletal History: Reports: Hx Arthritis - UNSURE, Other Musculoskeletal History - CP, VERY RIGID MOVEMENTS, TREMORS LEFT ARM, needs assist w/stairs Sensory History: Denies: Hx Contacts or Glasses, Hx Hearing Aid Opthamlomology History: Denies: Hx Contacts or Glasses Neurological History: Reports: Hx Developmental Delay, Hx Seizures - tegratol, Other Neuro Impairments/Disorders - CP Comment Only: Hx Nerve Disease - Cerebral Palsy, right eye strabismus Psychiatric History: Reports: Other Psychiatric Issues/Disorders - 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, PICA - Surgical History Surgery Procedure, Year, and Place: bilat hip Hx Anesthesia Reactions: No - Immunization History Date of Tetanus Vaccine: Unk Date of Influenza Vaccine: Unk Infectious Disease History: No Infectious Disease History: 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 Denies: Hx Clostridium Difficile, Hx Human Immunodeficiency Virus (HIV), Hx of Known/Suspected MRSA, Hx Shingles, Hx Tuberculosis, Hx Known/Suspected VRE, Hx Known/Suspected VRSA, History Other Infectious Disease, Traveled Outside the [place] in Last 30 Days - Family History Known Family History: Negative: Cardiac Disease, Hypertension - Social History Occupation: Disabled Lives: Assisted Living Alcohol Use: None Hx Substance Use: No Substance Use Type: Reports: None Hx Tobacco Use: No Smoking Status (MU): Never Smoked Tobacco Review of Systems Negative: Fever, Chills Negative: Erythema Negative: Sore Throat Negative: Chest Pain Negative: Shortness Of Breath, Cough Negative: Abdominal Pain, Vomiting, Nausea Negative: dysuria, hematuria Negative: Myalgia, Edema Negative: Rash Neurological: Other - Negative: Dizziness Positive: Syncope All Other Systems Reviewed And Are Negative: Yes Physical Exam - Summary Physical Exam Summary: Constitutional: Well-developed, Well-nourished, Alert. (-) Distressed Skin: Warm, Dry HENT: Normocephalic; Atraumatic Eyes: Conjunctiva normal Neck: Musculoskeletal ROM normal neck. (-) JVD, (-) Stridor, (-) Tracheal deviation Cardio: Rhythm regular, rate normal, Heart sounds normal; Intact distal pulses; The pedal pulses are 2+ and symmetric. Radial pulses are 2+ and symmetric. (-) Murmur Pulmonary/Chest wall: Effort normal. (-) Respiratory distress, (-) Wheezes, (-) Rales Abd: Soft, (-) Tenderness, (-) Distension, (-) Guarding, (-) Rebound Musculoskeletal: Feet contractures. Trace lower extremity edema. Lymph: (-) Cervical adenopathy Neuro: Moving all four extremities Psych: Mood and affect Normal Triage Information Reviewed: Yes Vital Signs On Initial Exam: Initial Vitals Temp Pulse Resp BP Pulse Ox 98.7 F 83 18 105/67 95 11/22/16 17:43 11/22/16 17:43 11/22/16 17:43 11/22/16 17:43 11/22/16 17:43 Vital Signs Reviewed: Yes - Jatinder Coma Scale Coma Scale Total: 12 Diagnostics - Vital Signs Vital Signs Temp Pulse Resp BP Pulse Ox 11/22/16 18:00 74 21 102/61 96 11/22/16 17:48 78 21 95 11/22/16 17:47 111/65 11/22/16 17:43 98.7 F 83 18 105/67 95 - Laboratory Lab Results: Lab Results 11/22/16 11/22/16 11/22/16 Range/Units 18:40 18:40 18:40 WBC 15.9 H (3.5-10.8) 10^3/ul RBC 2.71 L (4.0-5.4) 10^6/ul Hgb 8.2 L (14.0-18.0) g/dl Hct 26 L (42-52) % MCV 96 H (80-94) fL MCH 30 (27-31) pg MCHC 32 (31-36) g/dl RDW 15 (10.5-15) % Plt Count 357 (150-450) 10^3/ul MPV 7 L (7.4-10.4) um3 Neut % (Auto) 81.2 (38-83) % Lymph % (Auto) 5.5 L (25-47) % [place] % (Auto) 12.4 H (1-9) % Eos % (Auto) 0.6 (0-6) % Baso % (Auto) 0.3 (0-2) % Absolute Neuts (auto) 12.9 H (1.5-7.7) 10^3/ul Absolute Lymphs (auto) 0.9 L (1.0-4.8) 10^3/ul Absolute Monos (auto) 2.0 H (0-0.8) 10^3/ul Absolute Eos (auto) 0.1 (0-0.6) 10^3/ul Absolute Basos (auto) 0 (0-0.2) 10^3/ul Absolute Nucleated RBC 0.02 10^3/ul Nucleated RBC % 0.1 INR (Anticoag Therapy) 1.08 (0.89-1.11) Sodium 141 (133-145) mmol/L Potassium 3.5 (3.5-5.0) mmol/L Chloride 110 (101-111) mmol/L Carbon Dioxide 26 (22-32) mmol/L Anion Gap 5 (2-11) mmol/L BUN 13 (6-24) mg/dL Creatinine 0.58 L (0.67-1.17) mg/dL Est GFR ( Amer) 190.7 (>60) Est GFR (Non-Af Amer) 148.3 (>60) BUN/Creatinine Ratio 22.4 H (8-20) Glucose 122 H (70-100) mg/dL Lactic Acid (0.5-2.0) mmol/L Calcium 8.4 L (8.6-10.3) mg/dL Magnesium 2.1 (1.9-2.7) mg/dL Total Bilirubin 0.20 (0.2-1.0) mg/dL AST 18 (13-39) U/L ALT 15 (7-52) U/L Alkaline Phosphatase 109 H (34-104) U/L Total Creatine Kinase 27 (10-223) U/L Total Protein 5.8 L (6.4-8.9) g/dL Albumin 2.9 L (3.2-5.2) g/dL Globulin 2.9 (2-4) g/dL Albumin/Globulin Ratio 1.0 (1-3) Carbamazepine 18.6 H* (4.0-12.0) mcg/mL Lamotrigine (2.5 - 15.0) mcg/mL 11/22/16 11/22/16 11/23/16 Range/Units 18:40 18:40 05:16 WBC (3.5-10.8) 10^3/ul RBC (4.0-5.4) 10^6/ul Hgb (14.0-18.0) g/dl Hct (42-52) % MCV (80-94) fL MCH (27-31) pg MCHC (31-36) g/dl RDW (10.5-15) % Plt Count (150-450) 10^3/ul MPV (7.4-10.4) um3 Neut % (Auto) (38-83) % Lymph % (Auto) (25-47) % [place] % (Auto) (1-9) % Eos % (Auto) (0-6) % Baso % (Auto) (0-2) % Absolute Neuts (auto) (1.5-7.7) 10^3/ul Absolute Lymphs (auto) (1.0-4.8) 10^3/ul Absolute Monos (auto) (0-0.8) 10^3/ul Absolute Eos (auto) (0-0.6) 10^3/ul Absolute Basos (auto) (0-0.2) 10^3/ul Absolute Nucleated RBC 10^3/ul Nucleated RBC % INR (Anticoag Therapy) (0.89-1.11) Sodium (133-145) mmol/L Potassium (3.5-5.0) mmol/L Chloride (101-111) mmol/L Carbon Dioxide (22-32) mmol/L Anion Gap (2-11) mmol/L BUN (6-24) mg/dL Creatinine (0.67-1.17) mg/dL Est GFR ( Amer) (>60) Est GFR (Non-Af Amer) (>60) BUN/Creatinine Ratio (8-20) Glucose (70-100) mg/dL Lactic Acid 0.8 0.5 (0.5-2.0) mmol/L Calcium (8.6-10.3) mg/dL Magnesium (1.9-2.7) mg/dL Total Bilirubin (0.2-1.0) mg/dL AST (13-39) U/L ALT (7-52) U/L Alkaline Phosphatase (34-104) U/L Total Creatine Kinase (10-223) U/L Total Protein (6.4-8.9) g/dL Albumin (3.2-5.2) g/dL Globulin (2-4) g/dL Albumin/Globulin Ratio (1-3) Carbamazepine (4.0-12.0) mcg/mL Lamotrigine 3.6 (2.5 - 15.0) mcg/mL Result Diagrams: 11/28/16 05:55 11/28/16 05:55 Lab Statement: Any lab studies that have been ordered have been reviewed, and results considered in the medical decision making process. - Radiology CXR Xray Interpretation: Positive (See Comments) - IMPRESSION: LOW LUNG VOLUMES. NO ACTIVE CARDIOPULMONARY DISEASE. Radiology Interpretation Completed By: Radiologist Course/Dx Course Of Treatment: Concern for patient due to increased frequency and duration of seizures today with no return to baseline mental status in between seizures. Concern over pt Status epilepticus. Assessment/Plan: Discussed patient care with Dr. Greer (Hospitalist) @ 2017 - Will admit pt to [facility] - Diagnoses Provider Diagnoses: Seizure disorder, Developmental delay, profound - Physician Notifications Discussed Care of Patient With: Melva Miramontes - Recommended ativan as needed Time Discussed With Above Provider: 18:58 Discharge - Discharge Plan Condition: Stable Disposition: ADMITTED TO [facility] documentation as recorded by the Talita kumar Alok accurately reflects the service I personally performed and the decisions made by , Collin Gallagher MD.
== END 2016-11-29 12:35 | disposition home or self-care (01) | DRG 101 ==
LOC: ED 16:59 → MED 20:28 → OBSVTOIN 11-23 17:00 → INTOOBSV 11-24 06:17 → OBSVTOIN 11-24 06:17
PROVIDERS: ADMIT Hospitalist; ATTEND Internal Medicine
PROC: 30233N1 Transfusion of Nonautologous Red Blood Cells into Peripheral Vein, Percutaneous Approach (ICD-10-PCS; principal; 2016-11-24)
DX: G40.909 Epilepsy, unspecified, not intractable, without status epilepticus (principal); G80.8 Other cerebral palsy; B19.10 Unspecified viral hepatitis B without hepatic coma; A08.4 Viral intestinal infection, unspecified; D64.9 Anemia, unspecified; R62.50 Unspecified lack of expected normal physiological development in childhood; I10 Essential (primary) hypertension; K59.09 Other constipation; F50.89 Other specified eating disorder; R40.2422 Glasgow coma scale score 9-12, at arrival to emergency department; Z86.010 Personal history of colon polyps; Z88.8 Allergy status to other drugs, medicaments and biological substances
CPT/HCPCS: 36415; 71010; 80048; 80053; 80156; 80175; 80178; 82140; 82550; 82728; 83540; 83550; 83605; 83735; 84100; 84238; 85025; 85045; 85610; 86850; 86900; 86901; 86922; 87045; 87046; 87077; 87493; 87899; A9270-GY; G0378; J0744; J2060; J2405; J3480; P9040

== ENCOUNTER 2017-10-03 15:39 | Emergency (ER) | payer MEDICARE, MEDICAID ==
[2017-10-03 15:51] VITALS: BP 135/92
--- NOTE | 2017-10-03 15:51 | UC ---
Elbow Pain - HPI Summary HPI Summary: Patient is 52 year old gentleman with past medical history significant for severe mental retardation who lives in a long-term , who present with right elbow pain since last night. Aide who brought him in does not know in detail but she tells that his room mate heard him fall. Associated symptoms: swelling and bruising He is not able to give any history. His aide denies any other symptoms. - History of Current Complaint Stated Complaint: ELBOW INJURY Time Seen by Provider: 10/03/17 15:43 Hx Obtained From: Family/Expansion Envelope Maker Hand - Aide form the long-term. Hx From Patient Unobtainable Due To: Other - severe mental retardation Mechanism of Injury: fall Onset/Duration: Hours - Fell last night Severity Initially: Moderate Severity Currently: Moderate Pain Scale Used: Adult Non Verbal Location Of Pain: Is Discrete @ - posterior elbow Character: Unable to Describe Aggravating Factor(s): Other - Patient not able to tell Alleviating Factor(s): Other - patient not able to tell Associated Signs And Symptoms: Positive: Swelling, Redness, Bruising - Allergies/Home Medications Allergies/Adverse Reactions: Allergies Allergy/AdvReac Type Severity Reaction Status Date / Time Quinolones Allergy See Comment Verified 10/03/17 15:54 Home Medications: Home Medications Chlorhexidine MW 0.12% 473ML* [Peridex Mouth Wash 0.12%*] 0.12 % MT BID [History Confirmed 10/03/17] Ferrous Gluconate TAB* [Fergon TAB*] 325 mg PO DAILY 10/03/17 [History Confirmed 10/03/17] Phenyleph/Mineral Oil/Petrolat [Preparation H] 1 oin CO QID PRN 10/03/17 [ History Confirmed 10/03/17] PMH/Surg Hx/FS Hx/Imm Hx Previously Healthy: Yes Other Endocrine History: negative Cardiovascular History: Hypertension Other Respiratory History: negative GI/ History: Other - constipation Other GI/ History: constipation Neurological History: Seizures, Other Other Neurological History: mental retardation, cerebral palsy , mild hemiplegia Other Psychological History: negative Other Cancer History: negative Other History Of: Negative For: Anticoagulant Therapy - Surgical History Surgery Procedure, Year, and Place: bilat hip - Family History Known Family History: Positive: None Negative: Cardiac Disease, Hypertension - Social History Alcohol Use: None Substance Use Type: None Smoking Status (MU): Never Smoked Tobacco - Immunization History Most Recent Influenza Vaccination: 2016 Most Recent Pneumonia Vaccination: Fall 2016 Review of Systems Skin: Negative Eyes: Negative ENT: Negative Respiratory: Negative Cardiovascular: Negative Gastrointestinal: Negative Genitourinary: Negative Motor: Negative Neurovascular: Negative Musculoskeletal: Edema, Other: - bruising , swelling of elbow Neurological: Negative Psychological: Negative Is Patient Immunocompromised?: No All Other Systems Reviewed And Are Negative: Yes Physical Exam Triage Information Reviewed: Yes Completion Of Physical Exam Limited Due To: Other - Rajesh has a history of cerbral palsy and not able to answer any question. Appearance: No Pain Distress Vital Signs Reviewed: Yes Eyes: Positive: Conjunctiva Clear Respiratory: Positive: Lungs clear, Normal breath sounds Cardiovascular: Positive: RRR, No Murmur Musculoskeletal: Positive: Other: - Right elbow: swelling and bruising noted on the olecranon Has full passive ROM Able to fully pronate and supintae. Neurovascular intact Psychological: Positive: Other: - Patient alert Skin: Negative: rashes Elbow Pain Course/Dx - Course Course Of Treatment: During his visit today, we obtained Xrays of right elbow which are negative for any fracture. He appears to have traumatic olecranon bursitis. discussed the findings and further plan with his aide and she expressed understanding .Anson wrap was applied today - Differential Dx/Diagnosis Differential Diagnosis/HQI/PQRI: Bursitis, Contusion Provider Diagnoses: right traumatic olecranon bursitis Discharge - Sign-Out/Discharge Documenting (check all that apply): Discharge/Admit/Transfer - Discharge Plan Condition: Stable Disposition: HOME Patient Education Materials: Elbow Bursitis (ED) Referrals: Rony Selby MD [Primary Care Provider] - Additional Instructions: Symptoms appear to be due to Olecranon bursitis Anson wrap, protect , Ibuprofen for pain control and swelling. Ice 15 min at a time , 3 to 4 times/ day Follow up with your primary care doctor in 2 weeks Return to Urgent care / ER if symptoms get worse. - Billing Disposition and Condition Condition: STABLE Disposition: HOME
--- NOTE | 2017-10-03 16:22 | RAD ---
HISTORY: Right elbow pain COMPARISONS: None VIEWS: 4, Frontal, lateral, and oblique views of the right elbow FINDINGS: BONE DENSITY: Normal. BONES: There is no displaced fracture. JOINTS: There is no arthropathy. ALIGNMENT: There is no dislocation. SOFT TISSUES: There is soft tissue swelling over the olecranon OTHER FINDINGS: None. IMPRESSION: SOFT TISSUE SWELLING OVER THE OLECRANON SUGGESTIVE OF OLECRANON BURSITIS. NO ACUTE OSSEOUS INJURY. IF SYMPTOMS PERSIST, RECOMMEND REPEAT IMAGING.
== END 2017-10-03 16:35 | disposition home or self-care (01) ==
LOC: UCEAST 15:39
DX: M70.21 Olecranon bursitis, right elbow (principal); F72 Severe intellectual disabilities; Z88.1 Allergy status to other antibiotic agents; G80.9 Cerebral palsy, unspecified; G81.90 Hemiplegia, unspecified affecting unspecified side; I10 Essential (primary) hypertension
CPT/HCPCS: 99212; G0463

== ENCOUNTER 2017-10-25 15:32 | Emergency (ER) | payer MEDICARE, MEDICAID ==
[2017-10-25 16:15] VITALS: BP 136/89
[2017-10-25] MEDS ORDERED: Sulfamethox/Trimethoprim DS 800/160* TAB PO ONE ×2 (16:49→16:50)
--- NOTE | 2017-10-25 17:02 | UC ---
Matthew Galeano Stephanie, scribed for Jabari Culp MD on 10/25/17 at 1652 . Lower Extremity/Ankle HPI - HPI Summary HPI Summary: The pt is a 52 y/o M presenting to with c/o R ankle swelling that began today. Symptoms include redness. HPI obtained by the pts caregiver. - History of Current Complaint Chief Complaint: UCSkin Stated Complaint: SWOLLEN ANKLE Time Seen by Provider: 10/25/17 16:41 Hx Obtained From: Patient Onset/Duration: Sudden Onset, Lasting Days - 1, Still Present Severity Currently: Mild Pain Intensity: 0 Pain Scale Used: 0-10 Numeric Aggravating Factor(s): Ambulation Alleviating Factor(s): Nothing Able to Bear Weight: No - Allergies/Home Medications Allergies/Adverse Reactions: Allergies Allergy/AdvReac Type Severity Reaction Status Date / Time Quinolones Allergy See Comment Verified 10/25/17 16:15 PMH/Surg Hx/FS Hx/Imm Hx Endocrine History: Thyroid Disease Psychological History: Bipolar Disorder, Other Other Psychological History: MR Other History Of: Negative For: Anticoagulant Therapy - Surgical History Surgical History: Yes Surgery Procedure, Year, and Place: bilat hip - Family History Known Family History: Positive: None Negative: Cardiac Disease, Hypertension - Social History Alcohol Use: None Substance Use Type: None Smoking Status (MU): Never Smoked Tobacco Have You Smoked in the Last Year: No - Immunization History Most Recent Influenza Vaccination: 2015 Most Recent Pneumonia Vaccination: Fall 2015 Review of Systems Constitutional: Negative Skin: Negative Eyes: Negative ENT: Negative Respiratory: Negative Cardiovascular: Negative Gastrointestinal: Negative Genitourinary: Negative Motor: Negative Neurovascular: Negative Musculoskeletal: Other: - R ankle erythema and swelling Neurological: Negative Psychological: Negative All Other Systems Reviewed And Are Negative: Yes Physical Exam - Summary Physical Exam Summary: VITAL SIGNS: Reviewed. GENERAL: Patient is a well-developed and nourished MALE who is lying comfortable in the stretcher. Patient is not in any acute respiratory distress. HEAD AND FACE: Normocephalic EYES: PERRLA, EOMI x 2. EARS: Hearing grossly intact. MOUTH: Oropharynx within normal limits. NECK: Supple, trachea is midline, no adenopathy, no JVD, no carotid bruit. CHEST: Symmetric, no tenderness at palpation LUNGS: Clear to auscultation bilaterally. No wheezing or crackles. CVS: Regular rate and rhythm, S1 and S2 present, no murmurs or gallops appreciated. ABDOMEN: Soft, non-tender. Bowel sounds are normal. No abdominal abnormal pulsations. EXTREMITIES: Full ROM in all major joints, no cyanosis or clubbing. Some erythema and swelling around R lateral malleolus, full ROM of ankle without pain or tenderness. NEURO: Alert and oriented x 3. No acute neurological deficits. Speech is normal and follows commands. SKIN: Dry and warm Triage Information Reviewed: Yes Vital Signs: Initial Vital Signs Temp 99.2 F 10/25/17 16:11 Pulse 95 10/25/17 16:11 Resp 15 10/25/17 16:11 BP 136/89 10/25/17 16:11 Pulse Ox 98 10/25/17 16:11 Vital Signs Reviewed: Yes Lower Extremity Course/Dx - Course Course Of Treatment: 52-year-old male with suspected cellulitis. Symptoms no history of trauma, heavy lifting I did not perform an x-ray and the patient is able to bear weight in his right leg. Patient was given Bactrim. He will be discharged home with follow-up with PCP. - Differential Dx/Diagnosis Provider Diagnoses: cellulitis Discharge - Sign-Out/Discharge Documenting (check all that apply): Discharge/Admit/Transfer - Discharge Plan Condition: Stable Disposition: HOME Patient Education Materials: Cellulitis (ED) Referrals: Rony Selby MD [Primary Care Provider] - Additional Instructions: Take medications as indicated Return to the emergency department department if symptoms worsen. - Billing Disposition and Condition Condition: STABLE Disposition: Home The documentation as recorded by the Matthew kumar Stephanie accurately reflects the service I personally performed and the decisions made by Robbi carter Walter, MD.
== END 2017-10-25 17:05 | disposition home or self-care (01) ==
LOC: UCEAST 15:32
DX: L03.115 Cellulitis of right lower limb (principal); E07.9 Disorder of thyroid, unspecified; F31.9 Bipolar disorder, unspecified; F79 Unspecified intellectual disabilities
CPT/HCPCS: 99213; A9270-GY; G0463

== ENCOUNTER 2017-10-28 01:45 | Inpatient (IN) | payer MEDICARE, MEDICAID ==
[2017-10-28] MEDS ORDERED: Vancomycin(*) 1,250 MG in NS 0.9% 250 ML* 250 ML IVPB ONE (01:53)
[2017-10-28] MEDS ORDERED: NS 0.9% 250 ML* 250 ML ONE (02:17)
[2017-10-28] MEDS ORDERED: Vancomycin(*) 1,000 MG BAG/ADDV IVPB ONE (02:18)
[2017-10-28 02:23] LABS: ABS Basophils 0 10^3/ul (0-0.2); ABS Eosinophils 0 10^3/ul (0-0.6); ABS Lymphocytes 1.1 10^3/ul (1.0-4.8); ABS Neutrophils 5.6 10^3/ul (1.5-7.7); ABS Nucleated RBC 0 10^3/ul; Eosinophil % 0.6 % (0-6); Hematocrit 38 % (42-52); Hemoglobin 12.9 g/dl (14.0-18.0); Lymphocyte % 13.8 % (25-47); Mean Corpuscular HGB Conc 34 g/dl (31-36); Mean Corpuscular Hemoglobin 34 pg (27-31); Mean Corpuscular Volume 99 fL (80-94); Mean Platelet Volume 6.4 um3 (7.4-10.4); Nucleated Red Blood Cells % 0; Platelet Count 322 10^3/ul (150-450); Red Blood Count 3.82 10^6/ul (4.00-5.40); Red Cell Distribution Width 13 % (10.5-15); White Blood Count 7.7 10^3/ul (3.5-10.8)
[2017-10-28 02:57] LABS: EGFR Non-African American 104.9 (>60)
[2017-10-28] MEDS ORDERED: LORazepam INJ* 2 MG/ML 1 ML VIAL IV PUSH ONE ×4 (04:11→12:51)
[2017-10-28] MEDS ORDERED: LORazepam INJ* 2 MG/ML 1 ML VIAL ONE ×2 (04:11→09:01)
[2017-10-28] MEDS ORDERED: Midazolam* 1 MG/ML 5 ML VIAL (5 MG) SLOW PUSH ONE (04:40)
[2017-10-28] MEDS ORDERED: Acetaminophen TAB* 325 MG PO PRN ×2 (05:50→05:53)
[2017-10-28] MEDS ORDERED: Morphine VIAL* 4 MG/ML VIAL (1 ml vial) IV PRN (05:50)
[2017-10-28] MEDS ORDERED: LORazepam INJ* 2 MG/ML 1 ML VIAL IV PUSH PRN (05:52)
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
[2017-10-28] MEDS: Docusate CAP* 100 MG PO SCH ×2 (09:04→20:53)
[2017-10-28] MEDS: ceFAZolin 1 GM VIAL(*) 1 GM in NS 0.9% 50 ML* 50 ML IVPB SCH ×2 (09:13→17:06)
[2017-10-28] MEDS: carBAMazepine ER TAB(*) 200 MG PO SCH ×3 (09:14→20:53)
[2017-10-28] MEDS: Calcium Polycarbophil TAB* 625 MG PO SCH (09:14)
[2017-10-28] MEDS: Ferrous Gluconate TAB* 324 MG TAB PO SCH ×2 (09:14→20:54)
[2017-10-28] MEDS: Benztropine TAB* 1 MG PO SCH (09:14)
[2017-10-28] MEDS: ARIPiprazole TAB* 5 MG PO SCH (09:14)
[2017-10-28] MEDS: NS 0.9% 1000 ML* 1,000 ML IV SCH ×2 (09:14→19:52)
[2017-10-28] MEDS ORDERED: Morphine VIAL* 4 MG/ML VIAL (1 ml vial) IV ONE ×2 (10:03→12:51)
--- NOTE | 2017-10-28 11:40 | HP ---
CC: DON Soto * HISTORY AND PHYSICAL: DATE OF ADMISSION: 10/28/17 PRIMARY CARE PROVIDER: DON Soto CHIEF COMPLAINT: Agitation. HISTORY OF PRESENT ILLNESS: Jabari Headley is a 52-year-old male with history of cerebral palsy as well as seizure disorder, who was brought into the hospital for agitation. Apparently, staff noted a change with his behavior and he was more agitated and he was brought to the ED for evaluation. Here he was noted to have right lower extremity cellulitis. He received Ativan in the emergency room as well as Versed due to agitation. He was also placed on restraints, He is going to be admitted with diagnosis of cellulitis. PAST MEDICAL HISTORY: 1. History of hypertension. 2. Cerebral palsy. 3. Medically refractory epilepsy. 4. History of strabismus. 5. Infectious colitis. 6. 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 MEDICATIONS AT HOME: Include: 1. Tegretol XR 400 mg 2 times a day. 2. Triazolam 0.75 mg daily p.r.n. 3. Fleet enema 1 bottle every 72 hours p.r.n. 4. Seroquel 150 mg at bedtime. 5. Preparation H one dose four times a day p.r.n. 6. Multivitamin 1 tablet daily. 7. Lamotrigine 300 mg q.p.m., 200 mg q.a.m. 8. Lactulose 30 mL at bedtime p.r.n. 9. Lorazepam 1 mg every 6 hours p.r.n. 10. Ferrous gluconate 325 mg b.i.d. 11. Chlorhexidine mouthwash p.r.n. 12. Fiber-Lax 625 mg p.o. daily. 13. Cogentin 1 mg daily. 14. Acetaminophen on p.r.n. basis. 15. Abilify 10 mg daily. FAMILY HISTORY: Unobtainable from this basically nonverbal patient. SOCIAL HISTORY: The patient is a resident of [facility] due to his cerebral palsy. His surrogates are his parents, Sofi and Jabari Headley, living in [place], [place]. The phone number is [phone]. The patient at baseline needs to be fed and he requires small bites of food, but otherwise no modified diet. He walks with assistance. REVIEW OF SYSTEMS: Unobtainable from the patient. The patient apparently at baseline, he is able to sometimes communicate with minimal wording. Sometimes he shouts down obscenities or swears. The [facility] aide present in the room stated that the patient had been in usual state of health until the night of 10/27/17 when he was noted to be more agitated. There were no changes noted on his skin until the patient was seen in the emergency room. Remaining 12 systems were not able to be reviewed due to the patient's cerebral palsy. PHYSICAL EXAMINATION GENERAL: The patient is a pleasant 52-year-old male, who is agitated when awaken. He started shouting and swearing. The patient does not appear in no acute distress. VITAL SIGNS: Blood pressure of 111/59, heart rate of 77 and regular, respiratory rate is 69, oxygen saturation 98% on room air, temperature of 98.4. HEENT: Head: Atraumatic, normocephalic. Eyes: Pupils are equal, reactive to light bilaterally. Oropharynx clear. Mucosa moist. NECK: Supple. No JVD. No bruits bilaterally. RESPIRATORY: Clear to auscultation bilaterally. CARDIOVASCULAR: Regular rate and rhythm. No murmur. ABDOMEN: Slightly distended, soft, nontender. Bowel sounds present in all 4 quadrants. EXTREMITIES: The right ankle with +1 pitting edema and erythema surrounding the most of the area of the lateral and dorsal foot on the right as well as lower leg from the level of approximately 20 cm above the ankle down to the foot. No other lesions are appreciated on evaluation. NEURO EVALUATION: Nonfocal. Cranial nerves II through XII are grossly intact. Motor strength is symmetrical 5/5 bilaterally in all extremities. The patient does not follow commands. DIAGNOSTIC STUDIES/LAB DATA: Showed white blood cell count 7.7, hemoglobin 12.9, hematocrit 38, MCV 99, and platelets 322. Sodium 138, potassium 4.0, chloride 103, carbon dioxide 26, BUN 17, creatinine 0.78. Liver functions are unremarkable. C-reactive protein of 49. Urinalysis was just ordered. ASSESSMENT AND PLAN: 1. For patient's cellulitis, the patient is going to placed on Ancef. He was treated with one dose of IV vancomycin in the emergency room. The patient is also going to be placed on intravenous hydration. 2. In regards to the patient's cerebral palsy, the patient is willing to be treated with supportive treatment and agitation is going to be treated with Ativan. 3. For his seizures, he is going to be continued with his anti-seizure medications from home. I will also place the patient on seizure precautions. 4. For DVT prophylaxis, the patient is at low risk. He is going to be placed on SCDs. 5. The patient's code status is full. TIME SPENT: Approximately 55 minutes was spent on admission of this patient. [id number]/[facility] #: [id number] PAM
[2017-10-28] MEDS: LORazepam INJ* 2 MG/ML 1 ML VIAL IV PUSH PRN ×2 (17:08→21:25)
[2017-10-28] MEDS: Morphine VIAL* 4 MG/ML VIAL (1 ml vial) IV PRN ×2 (17:11→21:25)
[2017-10-29] MEDS: ceFAZolin 1 GM VIAL(*) 1 GM in NS 0.9% 50 ML* 50 ML IVPB SCH ×3 (01:12→18:31)
[2017-10-29] MEDS: NS 0.9% 1000 ML* 1,000 ML IV SCH ×3 (04:30→23:43)
[2017-10-29] MEDS: carBAMazepine ER TAB(*) 200 MG PO SCH ×3 (10:23→20:22)
[2017-10-29] MEDS: Benztropine TAB* 1 MG PO SCH (10:24)
[2017-10-29] MEDS: Calcium Polycarbophil TAB* 625 MG PO SCH (10:24)
[2017-10-29] MEDS: Docusate CAP* 100 MG PO SCH ×2 (10:24→20:23)
[2017-10-29] MEDS: ARIPiprazole TAB* 5 MG PO SCH (10:24)
[2017-10-29] MEDS: Ferrous Gluconate TAB* 324 MG TAB PO SCH ×2 (10:25→20:22)
[2017-10-29 19:07] LABS: Urine Appearance Clear; Urine Blood Negative (Negative); Urine Color Yellow; Urine Ketones Negative (Negative); Urine Protein Negative (Negative); Urine Specific Gravity 1.012 (1.010-1.030); Urine Urobilinogen Negative (Negative)
[2017-10-29] MEDS: LORazepam INJ* 2 MG/ML 1 ML VIAL IV PUSH PRN (20:45)
[2017-10-30] MEDS: ceFAZolin 1 GM VIAL(*) 1 GM in NS 0.9% 50 ML* 50 ML IVPB SCH ×2 (01:12→08:08)
[2017-10-30] MEDS: Ferrous Gluconate TAB* 324 MG TAB PO SCH (08:09)
[2017-10-30] MEDS: ARIPiprazole TAB* 5 MG PO SCH (08:09)
[2017-10-30] MEDS: Benztropine TAB* 1 MG PO SCH (08:09)
[2017-10-30] MEDS: carBAMazepine ER TAB(*) 200 MG PO SCH (08:09)
[2017-10-30] MEDS: Calcium Polycarbophil TAB* 625 MG PO SCH (08:09)
[2017-10-30] MEDS: Docusate CAP* 100 MG PO SCH (08:09)
[2017-10-30 10:36] VITALS: BP 137/71
--- NOTE | 2017-10-30 18:51 | PN ---
Hospitalist Progress Note Date of Service: 10/30/17 . HOSPITALIST DISCHARGE NOTE: See dc instructions and summary by me. Patient stable for dc dc instructions reviewed with the patient at the bedside. DC patient home today.
--- NOTE | 2017-10-30 18:56 | PN ---
Subjective Date of Service: 10/29/17 Interval History: . less agitation today foot improving continuing antibiotics discussed case with staff at multiple points during the day. Family History: Unchanged from Admission Social History: Unchanged from Admission Past Medical History: Unchanged from Admission Objective Active Medications: see medication record. see VS record. Oxygen Devices in Use Now: None Appearance: NAD; DD Eyes: No Scleral Icterus Ears/Nose/Mouth/Throat: Clear Oropharnyx Neck: NL Appearance and Movements; NL JVP Respiratory: Symmetrical Chest Expansion and Respiratory Effort Cardiovascular: NL Sounds; No Murmurs; No JVD Abdominal: NL Sounds; No Tenderness; No Distention Lymphatic: No Cervical Adenopathy Extremities: No Edema Skin: No Rash or Ulcers Neurological: Alert and Oriented x 3 Lines/Tubes/Other Access: Clean, Dry and Intact Peripheral IV Nutrition: Taking PO's Result Diagrams: 10/28/17 02:14 10/28/17 02:14 Additional Lab and Data: Lab Results 10/28/17 10/28/17 10/28/17 Range/Units 02:14 02:14 02:14 WBC 7.7 (3.5-10.8) 10^3/ul RBC 3.82 L (4.00-5.40) 10^6/ul Hgb 12.9 L (14.0-18.0) g/dl Hct 38 L (42-52) % MCV 99 H (80-94) fL MCH 34 H (27-31) pg MCHC 34 (31-36) g/dl RDW 13 (10.5-15) % Plt Count 322 (150-450) 10^3/ul MPV 6.4 L (7.4-10.4) um3 Neut % (Auto) 72.1 (38-83) % Lymph % (Auto) 13.8 L (25-47) % [place] % (Auto) 13.2 H (0-7) % Eos % (Auto) 0.6 (0-6) % Baso % (Auto) 0.3 (0-2) % Absolute Neuts (auto) 5.6 (1.5-7.7) 10^3/ul Absolute Lymphs (auto) 1.1 (1.0-4.8) 10^3/ul Absolute Monos (auto) 1.0 H (0-0.8) 10^3/ul Absolute Eos (auto) 0 (0-0.6) 10^3/ul Absolute Basos (auto) 0 (0-0.2) 10^3/ul Absolute Nucleated RBC 0 10^3/ul Nucleated RBC % 0 Sodium 138 (135-145) mmol/L Potassium 4.0 (3.5-5.0) mmol/L Chloride 103 (101-111) mmol/L Carbon Dioxide 26 (22-32) mmol/L Anion Gap 9 (2-11) mmol/L BUN 17 (6-24) mg/dL Creatinine 0.78 (0.67-1.17) mg/dL Est GFR ( Amer) 127.0 (>60) Est GFR (Non-Af Amer) 104.9 (>60) BUN/Creatinine Ratio 21.8 H (8-20) Glucose 103 H (70-100) mg/dL Lactic Acid 1.4 (0.5-2.0) mmol/L Calcium 9.0 (8.6-10.3) mg/dL Total Bilirubin 0.20 (0.2-1.0) mg/dL Direct Bilirubin 0.00 L (0.03-0.18) mg/dL Indirect Bilirubin Not Reportable AST 16 (13-39) U/L ALT 17 (7-52) U/L Alkaline Phosphatase 99 (34-104) U/L C-Reactive Protein 49.19 H (<8.01) mg/L Total Protein 7.1 (6.4-8.9) g/dL Albumin 4.1 (3.2-5.2) g/dL Globulin 3.0 (2-4) g/dL Albumin/Globulin Ratio 1.4 (1-3) Assess/Plan/Problems-Billing . Assessment: 52 yo man with DD; now with agitation and lower extremity cellulitis; improving on IV antibiotic regimen. . - Patient Problems (1) Cellulitis and abscess of foot Status: Acute Priority: High Code(s): L03.119 - CELLULITIS OF UNSPECIFIED PART OF LIMB; L02.619 - CUTANEOUS ABSCESS OF UNSPECIFIED FOOT Comment: - IV ancef - appears to be working - no fevers - decreasing agitation (2) Developmental delay, profound Status: Acute Priority: High Code(s): R62.50 - UNSP LACK OF EXPECTED NORMAL PHYSIOL DEV IN CHILDHOOD Comment: - Dx noted. (3) Seizure disorder Status: Acute Priority: High Code(s): G40.909 - EPILEPSY, UNSP, NOT INTRACTABLE, WITHOUT STATUS EPILEPTICUS Comment: - Contiuing outpatient regimen - seizure precautions in place - monitor in room
--- NOTE | 2017-10-31 00:12 | DS ---
CC: DON Soto * DISCHARGE SUMMARY: DATE OF ADMISSION: 10/28/17. DATE OF DISCHARGE: 10/30/17. PRIMARY CARE PROVIDER: DON Soto. STATUS DURING HOSPITALIZATION: Inpatient. PRINCIPLE DISCHARGE DIAGNOSIS: Agitation secondary to lower extremity cellulitis and acute infection with improvement after initiation of IV antibiotics, and continuation of antibiotics in the outpatient setting. SECONDARY DIAGNOSES: 1. Cerebral palsy and developmental delay. 2. Medically refractory epilepsy. 3. History of strabismus. 4. Hypertension. 5. History of infectious colitis. 6. History of hemorrhoidal banding, October of 2016. DISCHARGE MEDICATION REGIMEN: 1. Discontinue Bactrim. 2. Initiate Keflex 500 mg by mouth 3 times daily for 6 days then stop. Two doses were given to complete the daily regimen on October 30, the first dose was given at the hospital and 5 initial days were communicated to the patient's pharmacy by electronic prescription. Continue all other medications includin. Tegretol XR 400 mg by mouth twice daily. 2. Triazolam 0.75 mg daily as needed. 3. Fleet enema one bottle every 72 hours p.r.n. constipation. 4. Seroquel 150 mg by mouth. 5. Preparation H one dose 4 times daily as needed for hemorrhoidal pain. 6. Multivitamin one tablet by mouth once daily. 7. Lamotrigine 300 mg by mouth in the evening, 200 mg by mouth in the morning. 8. Lactulose 30 mL at bedtime p.r.n. constipation. 9. Lorazepam 1 mg every 6 hours p.r.n. agitation. 10. Ferrous gluconate 325 mg by mouth twice daily. 11. Chlorhexidine mouthwash as needed. 12. Fiber-Lax 625 mg by mouth daily. 13. Cogentin 1 mg by mouth once daily. 14. Acetaminophen [id number] on a p.r.n. basis. 15. Abilify 10 mg by mouth daily. HISTORY OF PRESENT ILLNESS/HOSPITAL COURSE: Please see the H and P by Dr. Maude Fox. In brief, Mr. Headley is a 52-year-old gentleman with the history noted above, who was brought to the hospital for agitation. The staff in his long-term noticed the change in his behavior and he was noted to have a right lower extremity cellulitis. He had a fever. He did not meet sepsis criteria. He was placed on restraints because he would punch himself and he would also lash out at staff. The patient was cautiously treated with soft restraints as well as morphine for pain and Ativan for agitation. He had a few hours in the restraints with repeated reordering and monitoring and the patient finally quieted down likely because the infection and pain control was achieved. The patient did well in the subsequent day. He was intermittently agitated. He did require intermittent doses of IV Ativan and IV morphine. The patient did well on 10/30/17, was discharged home in stable condition. The patient's staff stayed with him throughout the entire hospitalization. He lives at [facility]. His parents, Jabari and Sofi Headley lives in [place], [place]. They were updated at the point of admission. The patient is doing well. He can come back to the hospital if there is any problems. Again, we stopped the Bactrim and initiated oral Keflex, which is similar to IV Ancef, which was working effectively in the hospital. There were no positive cultures to specifically guide therapy during this hospitalization. The patient was stable at the point of admission. TIME SPENT: Total time taken to discharge Mr. Headley was 45 minutes, greater than half of the time was spent preparing the discharge documents, communicating the plan of care to the staff and arranging his Keflex tablets that were given to go home from our pharmacy. [id number]/[facility] #: [id number] MTDD
== END 2017-10-30 11:25 | disposition home or self-care (01) | DRG 603 ==
LOC: ED 01:45 → MED 05:50 → UNDOADMIN 05:50 → MED 06:56 → ED 07:02
PROVIDERS: ADMIT Internal Medicine; ATTEND Internal Medicine
DX: L03.115 Cellulitis of right lower limb (principal); G40.802 Other epilepsy, not intractable, without status epilepticus; L02.611 Cutaneous abscess of right foot; R45.1 Restlessness and agitation; G80.9 Cerebral palsy, unspecified; R62.50 Unspecified lack of expected normal physiological development in childhood; I10 Essential (primary) hypertension; Z79.1 Long term (current) use of non-steroidal anti-inflammatories (NSAID); Z79.899 Other long term (current) drug therapy
CPT/HCPCS: 36415; 80048; 80076; 81003; 83605; 85025; 86140; 99284; A9270-GY; J0690; J2060; J2250; J2270; J3370

== ENCOUNTER 2018-01-21 14:09 | Emergency (ER) | payer MEDICARE, MEDICAID ==
--- NOTE | 2018-01-21 15:05 | UC ---
Complaint Male HPI - HPI Summary HPI Summary: 52 y/o male w/ PMHX of Cerebral Palsy, MR and seizures presents to the urgent care in a wheel chair accompany by lease out worker Suki from [employer] [facility]. lease out worker states pt had low grade fever of 100F around 1100AM and his urine was dark. She wants to make sure he doesn't have a UTI. this morning he was having difficulty standing up. However now he is better. Pt is non verbal, but follows commands. Pt lease out worker denies URI, pain, abdominal pain, SOB, difficulty breathing, chest pain, N/V/D. He had a normal BM yesterday. - History of Current Complaint Chief Complaint: UCGI Stated Complaint: DARK URINE, DIFFICULTLY STANDING Hx Obtained From: Family/Hazardous Waste Management Specialist - Zone Manager form [employer] Hx From Patient Unobtainable Due To: Other - Mental retardation, cerebral palsy Onset/Duration: Gradual Onset, Lasting Hours - 4 hrs, Still Present Timing: Intermittent Severity Initially: Mild Severity Currently: Mild Pain Intensity: 0 Pain Scale Used: unable to describe Location: None Character: Burning Aggravating Factor(s): Voiding - unable to urinate Alleviating Factor(s): Nothing Associated Signs And Symptoms: Positive: Fever - low grade fever 100F around 1100AM, Dysuria. Negative: Back Pain, Hematuria, Blood in Stool, Rectal Pain, Appetite, Nausea, Vomiting(# Of Episodes =), Penile Swelling, Penile Discharge - Risk Factors Testicular Torsion: Negative - Allergies/Home Medications Allergies/Adverse Reactions: Allergies Allergy/AdvReac Type Severity Reaction Status Date / Time Quinolones Allergy See Comment Verified 01/21/18 14:19 PMH/Surg Hx/FS Hx/Imm Hx Previously Healthy: Yes Other Endocrine History: Reynard syndrome Cardiovascular History: Hypertension Neurological History: Seizures, Other - Cerebral Palsy, Mental Retardation Other Neurological History: insomnia Other History Of: Negative For: Anticoagulant Therapy - Surgical History Surgical History: Yes Surgery Procedure, Year, and Place: Bilateral Hip - Family History Known Family History: Positive: None 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 Alcohol Use: None Substance Use Type: None Smoking Status (MU): Never Smoked Tobacco Have You Smoked in the Last Year: No - Immunization History Most Recent Influenza Vaccination: 2015 Most Recent Pneumonia Vaccination: Fall 2015 Vaccination Up to Date: Yes Review of Systems Constitutional: Fever - low grade fever at home Skin: Negative Eyes: Negative ENT: Negative Respiratory: Negative Cardiovascular: Negative Gastrointestinal: Negative Genitourinary: Frequency, Other - dark urine this morning Motor: Negative Neurovascular: Negative Musculoskeletal: Negative Neurological: Negative Psychological: Negative Is Patient Immunocompromised?: No All Other Systems Reviewed And Are Negative: Yes Physical Exam - Summary Physical Exam Summary: VITAL SIGNS: Reviewed. GENERAL: Patient is a well developed and nourished MR male who is sitting comfortable in the wheel chair. Pt is non verbal, but folow commands. Patient is not in any acute respiratory distress. HEAD AND FACE: No signs of trauma. No ecchymosis, hematomas or skull depressions. No sinus tenderness. EYES: PERRLA, EOMI x 2, No injected conjunctiva, clear watery eyes, no nystagmus. No photophobia. EARS: Hearing grossly intact. Ear canals and tympanic membranes are within normal limits. MOUTH: pharynx with no erythema, no exudates,no palatal petechiae. no B/L tonsillar enlargement Uvula in midline. NECK: Supple, trachea is midline, no lymphadenopathy, no JVD, no carotid bruit, no c-spine tenderness, neck with full ROM. CHEST: Symmetric, no tenderness at palpation LUNGS: Clear to auscultation bilaterally. No wheezing or crackles. CVS: Regular rate and rhythm, S1 and S2 present, no murmurs or gallops appreciated. ABDOMEN: Soft, non-tender. No signs of distention. No rebound no guarding, and no masses palpated. Bowel sounds are normal. BACK:no scoliosis or lesions, non tender to palpation, No B/L CVA tenderness EXTREMITIES: FROM in all major joints, no edema, no cyanosis or clubbing. NEURO: Alert and oriented x 3. No acute neurological deficits. Pt follows commands. SKIN: Dry and warm Triage Information Reviewed: Yes Vital Signs: Initial Vital Signs Temp 98.6 F 01/21/18 14:15 Pulse 75 01/21/18 14:15 Resp 12 01/21/18 14:15 BP 132/91 01/21/18 14:15 Pulse Ox 98 01/21/18 14:15 Complaint Male Course/Dx - Course Course Of Treatment: 52 y/o male w/ PMHX of Cerebral Palsy, MR and seizures presents to the urgent care in a wheel chair accompany by lease out worker Suki [facility]. lease out worker states pt had low grade fever of 100F around 1100AM and his urine was dark. She wants to make sure he doesn't have a UTI. this morning he was having difficulty standing up. However now he is better. Pt is non verbal, but follows commands. Pt lease out worker denies URI, pain, abdominal pain, SOB, difficulty breathing, chest pain, N/V/D. He had a normal BM yesterday. Hx obtained. PE: WNL, Pt is hemodynamically stable. Pt is afebrile and follows commands w/o any distress. UA ordered. Pt unable to give us urine. He tried #X w/o any success. Parent authorization was given to urine catherization. Nurse estee tried w/o any success. I will Tx Pt prophilactically for UTI. PT allergic to Quinolones. Pt Rx Augmentin PO as directed below. lease out worker advised to increase fluid intake and close observation of Pt behavior. Also advised to f/u w/ PCP on Tuesday for f/u check up. Pt's BP is elevated today advised to decrease salt in diet, monitor BP and f /u with PCP for further management. D/C instructions explained. lease out worker understood and agreed w/ plan of care. Pt left clinic hemodynamically stable, A& OX3 - Differential Dx/Diagnosis Differential Diagnosis/HQI/PQRI: Ureteral Calculi, Urinary Tract Infection, Other - viral syndrome Provider Diagnoses: 1- Dysuria. 2- Uncontrolled HTN Discharge - Sign-Out/Discharge Documenting (check all that apply): Patient Departure - D/C home All imaging exams completed and their final reports reviewed: No Studies - Discharge Plan Condition: Stable Disposition: HOME Prescriptions: Amoxicillin/Clavulanate TAB* [Augmentin TAB 500 mg*] 500 mg PO TID #6 tab Patient Education Materials: Dysuria (ED), Low-Sodium Diet (ED) Referrals: Rony Selby MD [Primary Care Provider] - 2 Days Additional Instructions: 1- Unable to get urine on catherization. Pt will be treated prophylactically for UTI. Please give PT Augmentin PO as directed. to alleviate urinary symptoms. Increase increase fluid intake. drink cranberry juice. 2-Please f/u w/ your PCP in 2 days for further management if not improvement of symptoms. Please collect urine in the morning Tuesday and bring it to PCP for further management. 3- If symptoms worsen and Pt develops severe w/ urinary incontinence please take Pt to the ER for further treatment 4-Pt's BP is elevated today advised to decrease salt in diet, monitor BP and f/ u with PCP for further management. - Billing Disposition and Condition Condition: STABLE Disposition: Home
[2018-01-21 16:26] VITALS: BP 137/76
== END 2018-01-21 16:34 | disposition home or self-care (01) ==
LOC: UCEAST 14:09
DX: R30.0 Dysuria (principal); R50.9 Fever, unspecified; I10 Essential (primary) hypertension; Z88.1 Allergy status to other antibiotic agents
CPT/HCPCS: 99212; G0463

== ENCOUNTER → 2018-02-03 00:18 | Emergency (ER) | payer MEDICARE, MEDICAID ==
[~2018-02-03 00:18] MED LIST changes: +ARIPiprazole TAB* 5 MG PO SCH; +Benztropine TAB* 1 MG PO SCH; -Buffered Lidocaine 0.9% SYRIN* 5 ML/SYR SYRINGE INTRADERM ONE; +Calcium Polycarbophil TAB* 625 MG PO SCH; -Famotidine IV* 10 MG/ML 2 ML (20 mg) IV ONE; +LAMOTRIGINE 300 MG PO SCH; +LORazepam INJ* 2 MG/ML 1 ML VIAL IM ONE; +LORazepam INJ* 2 MG/ML 1 ML VIAL ONE; +LORazepam TAB(*) 1 MG PO PRN; +Midazolam* 1 MG/ML 5 ML VIAL (5 MG) IV ONE; +NS 0.9% 1000 ML* 1,000 ML IV ONE; +Polyethylene Glycol 3350* 17 GM PACKET PO SCH; +Triazolam TAB* 0.25 MG PO PRN; +carBAMazepine ER TAB(*) 200 MG PO SCH; +lamoTRIgine TAB(*) 100 MG PO SCH
[2018-02-03 01:55] LABS: ABS Basophils 0 10^3/ul (0-0.2); ABS Eosinophils 0.1 10^3/ul (0-0.6); ABS Lymphocytes 1.8 10^3/ul (1.0-4.8); ABS Monocytes 0.7 10^3/ul (0-0.8); ABS Neutrophils 3.3 10^3/ul (1.5-7.7); ABS Nucleated RBC 0 10^3/ul; Hematocrit 41 % (42-52); Lymphocyte % 30.2 % (25-47); Mean Corpuscular HGB Conc 34 g/dl (31-36); Mean Corpuscular Hemoglobin 33 pg (27-31); Mean Corpuscular Volume 98 fL (80-94); Mean Platelet Volume 6.4 um3 (7.4-10.4); Nucleated Red Blood Cells % 0; Platelet Count 367 10^3/ul (150-450); Red Cell Distribution Width 13 % (10.5-15); White Blood Count 5.9 10^3/ul (3.5-10.8)
[2018-02-03 02:09] LABS: EGFR Non-African American 120.9 (>60)
--- NOTE | 2018-02-03 02:35 | ED ---
Seizure - HPI Summary HPI Summary: Patient with history of seizures and MR from senior living complains of 4 focal seizures today per caregiver who was not present during seizures. Caregiver states patient usually may have one seizure tonight, states patient usually has more seizures when he has some sort of infection. Caregiver also states decrease in bowel movement production. Patient taking medications as prescribed , no new medications. Caregiver States increase in aggression and patient saying "I'm sick" and pointing to head 2 days. Caregiver denies any obvious symptoms of illness, denies fever, cough, sore throat, CP, SOB, N/V/D. - History Of Current Complaint Chief Complaint: EDSeizure Time Seen by Provider: 02/03/18 00:52 Hx Obtained From: Patient, Family/[employer] Professor Onset/Duration: Sudden Onset Severity Of Seizure: Self-Limited Location Of Seizure: Focal Movement(s) Alleviating Factor(s): Spontaneous Resolution Associated Signs And Symptoms: Negative - Allergies/Home Medications Allergies/Adverse Reactions: Allergies Allergy/AdvReac Type Severity Reaction Status Date / Time Quinolones Allergy See Comment Verified 01/21/18 14:19 Home Medications: Home Medications Bacitracin Zinc 1 applic TOPICAL BID PRN 02/03/18 [History Confirmed 02/03/18] Lactulose 20 gm PO BEDTIME PRN 02/03/18 [History Confirmed 02/03/18] Mineral Oil 3 drp BOTH EARS DAILY PRN 02/03/18 [History Confirmed 02/03/18] Polyethylene Glycol 3350* [Miralax*] 17 gm PO DAILY 02/03/18 [History Confirmed 02/03/18] PMH/Surg Hx/FS Hx/Imm Hx Endocrine/Hematology History: Reports: Hx Anemia - RECENT ANEMIA, BLOOD LOSS DUE TO HEMORRHOIDS, Other Endocrine/Hematological Disorders - ANEMIA Denies: Hx Anticoagulant Therapy Cardiovascular History: Reports: Hx Hypertension, Hx Peripheral Vascular Disease , Other Cardiovascular Problems/Disorders - Raynaud's disease GI History: Reports: Other GI Disorders - chronic constipation and hemorrhoids Musculoskeletal History: Reports: Hx Arthritis - UNSURE, Other Musculoskeletal History - CP, VERY RIGID MOVEMENTS, TREMORS LEFT ARM, needs assist w/stairs Sensory History: Reports: Other Sensory Impairments - right eye ptosis Denies: Hx Contacts or Glasses, Hx Hearing Aid Opthamlomology History: Reports: Other Sensory Impairments - right eye ptosis Denies: Hx Contacts or Glasses Neurological History: Reports: Hx Developmental Delay, Hx Nerve Disease - Cerebral Palsy, right eye strabismus, Hx Seizures - tegratol, Other Neuro Impairments/Disorders - CP Psychiatric History: Reports: Hx Bipolar Disorder, Other Psychiatric Issues/ Disorders - 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, PICA - Surgical History Surgery Procedure, Year, and Place: Bilateral Hip Hx Anesthesia Reactions: No - Immunization History Date of Tetanus Vaccine: Unk Date of Influenza Vaccine: Unk Infectious Disease History: No Infectious Disease History: Reports: Hx Hepatitis - B Denies: Hx Clostridium Difficile, Hx Human Immunodeficiency Virus (HIV), Hx of Known/Suspected MRSA, Hx Shingles, Hx Tuberculosis, Hx Known/Suspected VRE, Hx Known/Suspected VRSA, History Other Infectious Disease, Traveled Outside the [place] in Last 30 Days - Family History Known Family History: Positive: None Negative: Cardiac Disease, Hypertension - Social History Alcohol Use: None Hx Substance Use: No Substance Use Type: Reports: None Hx Tobacco Use: No Smoking Status (MU): Never Smoked Tobacco Have You Smoked in the Last Year: No Review of Systems Constitutional: Negative Eyes: Negative Cardiovascular: Negative Respiratory: Negative Gastrointestinal: Negative Genitourinary: Negative Musculoskeletal: Negative Skin: Negative Neurological: Negative Psychological: Normal All Other Systems Reviewed And Are Negative: Yes Physical Exam - Summary Physical Exam Summary: Patient alert, points to his elbow when asked where he is sick or feels pain. Small abrasion on his right elbow. Abdomen soft nontender. Lung sounds clear to auscultation bilaterally. Ear nose and throat exam normal. Triage Information Reviewed: Yes Vital Signs On Initial Exam: Initial Vitals Pulse Resp Pulse Ox 83 30 97 02/03/18 00:29 02/03/18 00:29 02/03/18 00:29 Vital Signs Reviewed: Yes Appearance: Positive: Well-Appearing Skin: Positive: Warm Head/Face: Positive: Normal Head/Face Inspection Eyes: Positive: Normal Neck: Positive: Supple Respiratory/Lung Sounds: Positive: Clear to Auscultation Cardiovascular: Positive: Normal Abdomen Description: Positive: Nontender Musculoskeletal: Positive: Normal Neurological: Positive: Normal Psychiatric: Positive: Normal AVPU Assessment: Alert - [place] Coma Scale Best Eye Response: 4 - Spontaneous Best Motor Response: 6 - Obeys Commands Diagnostics - Vital Signs Vital Signs Temp Pulse Resp BP Pulse Ox 02/03/18 00:47 97.9 F 78 18 153/88 98 02/03/18 00:30 79 153/88 98 02/03/18 00:29 83 30 97 - Laboratory Lab Results: Lab Results 02/03/18 02/03/18 Range/Units 01:39 01:39 WBC 5.9 (3.5-10.8) 10^3/ul RBC 4.20 (4.00-5.40) 10^6/ul Hgb 14.0 (14.0-18.0) g/dl Hct 41 L (42-52) % MCV 98 H (80-94) fL MCH 33 H (27-31) pg MCHC 34 (31-36) g/dl RDW 13 (10.5-15) % Plt Count 367 (150-450) 10^3/ul MPV 6.4 L (7.4-10.4) um3 Neut % (Auto) 55.4 (38-83) % Lymph % (Auto) 30.2 (25-47) % Sharp % (Auto) 12.1 H (0-7) % Eos % (Auto) 2.0 (0-6) % Baso % (Auto) 0.3 (0-2) % Absolute Neuts (auto) 3.3 (1.5-7.7) 10^3/ul Absolute Lymphs (auto) 1.8 (1.0-4.8) 10^3/ul Absolute Monos (auto) 0.7 (0-0.8) 10^3/ul Absolute Eos (auto) 0.1 (0-0.6) 10^3/ul Absolute Basos (auto) 0 (0-0.2) 10^3/ul Absolute Nucleated RBC 0 10^3/ul Nucleated RBC % 0 Sodium 140 (135-145) mmol/L Potassium 4.3 (3.5-5.0) mmol/L Chloride 106 (101-111) mmol/L Carbon Dioxide 30 (22-32) mmol/L Anion Gap 4 (2-11) mmol/L BUN 19 (6-24) mg/dL Creatinine 0.69 (0.67-1.17) mg/dL Est GFR ( Amer) 146.3 (>60) Est GFR (Non-Af Amer) 120.9 (>60) BUN/Creatinine Ratio 27.5 H (8-20) Glucose 96 (70-100) mg/dL Calcium 9.2 (8.6-10.3) mg/dL Total Bilirubin 0.20 (0.2-1.0) mg/dL AST 15 (13-39) U/L ALT 18 (7-52) U/L Alkaline Phosphatase 94 (34-104) U/L C-Reactive Protein 3.36 (<8.01) mg/L Total Protein 7.2 (6.4-8.9) g/dL Albumin 4.6 (3.2-5.2) g/dL Globulin 2.6 (2-4) g/dL Albumin/Globulin Ratio 1.8 (1-3) Serum Alcohol < 10 (<10) mg/dL Result Diagrams: 02/03/18 01:39 02/03/18 01:39 Lab Statement: Any lab studies that have been ordered have been reviewed, and results considered in the medical decision making process. - Radiology kub Xray Interpretation: No Acute Changes Radiology Interpretation Completed By: ED Physician - EKG 05:29 Cardiac Rate: NL - 60 BPM EKG Rhythm: Sinus Rhythm Re-Evaluation - Re-Evaluation 1 Re-Evaluation Time: 04:10 Change: Worse Comment: Pt upon being D/C has had a seizure for 15 seconds. So patient will be medicated w/ Ativan IM b/c he can not keep IV. Course/Dx - Course Course Of Treatment: Patient with history of seizures and MR from senior living complains of 4 focal seizures today per caregiver who was not present during seizures. Caregiver states patient usually may have one seizure tonight, states patient usually has more seizures when he has some sort of infection. Caregiver also states decrease in bowel movement production. Patient taking medications as prescribed, no new medications. Caregiver States increase in aggression and patient saying "I'm sick" 2 days. Caregiver denies any obvious symptoms of illness, denies fever, cough, sore throat, CP, SOB, N/V/D. Physical exam: Patient alert, points to his elbow when asked where he is sick or feels pain. Small abrasion on his right elbow. Abdomen soft nontender. Lung sounds clear to auscultation bilaterally. Ear nose and throat exam normal. Patient ambulates with assistance as per baseline around the ED. - Diagnoses Provider Diagnoses: Seizure Discharge - Sign-Out/Discharge Documenting (check all that apply): Sign-Out Patient Signing out patient TO: Katty Trent - Discharge Plan Condition: Stable Disposition: [facility]MITTED TO [facility] Patient Education Materials: Epilepsy (DC) Forms: *Detention Transfer ([facility]) Referrals: Rony Selby MD [Primary Care Provider] - Roberta Jones MD [Medical Doctor] - - Billing Disposition and Condition Condition: STABLE Disposition: Ad[facility]
[2018-02-03 02:42] LABS: Urine Appearance Clear; Urine Blood Negative (Negative); Urine Color Yellow; Urine Ketones Negative (Negative); Urine Protein Negative (Negative); Urine Specific Gravity 1.017 (1.010-1.030); Urine Urobilinogen Negative (Negative)
--- NOTE | 2018-02-03 03:59 | ED ---
Progress - Progress Note Progress Note: Patient with history of seizures and MR from halfway complains of 4 focal seizures today per caregiver who was not present during seizures. Caregiver states patient usually may have one seizure tonight, states patient usually has more seizures when he has some sort of infection. Caregiver also states decrease in bowel movement production. Patient taking medications as prescribed , no new medications. Caregiver States increase in aggression and patient saying "I'm sick" 2 days. Caregiver denies any obvious symptoms of illness, denies fever, cough, sore throat, CP, SOB, N/V/D. Patient signed out from Dr. Glass to Dr. Trent during a shift change. Re-Evaluation - Re-Evaluation 1 Re-Evaluation Time: 04:10 Change: Worse Comment: Pt upon being D/C has had a seizure for 15 seconds. So patient will be medicated w/ Ativan IM b/c he can not keep IV. Course/Dx - Course Course Of Treatment: Patient with history of seizures and MR from halfway complains of 4 focal seizures today per caregiver who was not present during seizures. Caregiver states patient usually may have one seizure tonight, states patient usually has more seizures when he has some sort of infection. Caregiver also states decrease in bowel movement production. Patient taking medications as prescribed, no new medications. Caregiver States increase in aggression and patient saying "I'm sick" 2 days. Caregiver denies any obvious symptoms of illness, denies fever, cough, sore throat, CP, SOB, N/V/D. Physical exam: Patient alert, points to his elbow when asked where he is sick or feels pain. Small abrasion on his right elbow. Abdomen soft nontender. Lung sounds clear to auscultation bilaterally. Ear nose and throat exam normal. Patient ambulates with assistance as per baseline around the ED. Patient signed out from Dr. Glass to Dr. Trent during a shift change. Patient has no signs of infection. Patient is on Tegretol. Advised patient to increase Lamictal dosage. I spoke with Dr. Walker who will accept the patient. - Diagnoses Provider Diagnoses: Seizure Discharge - Sign-Out/Discharge Documenting (check all that apply): Patient Departure, Receiving Sign-Out Receiving patient FROM: Rod Glass - Discharge Plan Condition: Stable Disposition: ADMITTED TO [facility] Referrals: Rony Selby MD [Primary Care Provider] - - Attestation Statements Document Initiated by Scribe: Yes Documenting Scribe: Jus Batista Provider For Whom Scribe is Documenting (Include Credential): Rebeca Trent MD Scribe Attestation: Jus Galeano, scribed for Rebeca Trent MD on 02/03/18 at 0539. Diagnostics - Vital Signs Vital Signs Temp Pulse Resp BP Pulse Ox 02/03/18 04:25 16 02/03/18 00:47 97.9 F 78 18 153/88 98 02/03/18 00:30 79 153/88 98 02/03/18 00:29 83 30 97 - Laboratory Lab Results: Lab Results 02/03/18 02/03/18 Range/Units 01:39 01:39 WBC 5.9 (3.5-10.8) 10^3/ul RBC 4.20 (4.00-5.40) 10^6/ul Hgb 14.0 (14.0-18.0) g/dl Hct 41 L (42-52) % MCV 98 H (80-94) fL MCH 33 H (27-31) pg MCHC 34 (31-36) g/dl RDW 13 (10.5-15) % Plt Count 367 (150-450) 10^3/ul MPV 6.4 L (7.4-10.4) um3 Neut % (Auto) 55.4 (38-83) % Lymph % (Auto) 30.2 (25-47) % Harper % (Auto) 12.1 H (0-7) % Eos % (Auto) 2.0 (0-6) % Baso % (Auto) 0.3 (0-2) % Absolute Neuts (auto) 3.3 (1.5-7.7) 10^3/ul Absolute Lymphs (auto) 1.8 (1.0-4.8) 10^3/ul Absolute Monos (auto) 0.7 (0-0.8) 10^3/ul Absolute Eos (auto) 0.1 (0-0.6) 10^3/ul Absolute Basos (auto) 0 (0-0.2) 10^3/ul Absolute Nucleated RBC 0 10^3/ul Nucleated RBC % 0 Sodium 140 (135-145) mmol/L Potassium 4.3 (3.5-5.0) mmol/L Chloride 106 (101-111) mmol/L Carbon Dioxide 30 (22-32) mmol/L Anion Gap 4 (2-11) mmol/L BUN 19 (6-24) mg/dL Creatinine 0.69 (0.67-1.17) mg/dL Est GFR ( Amer) 146.3 (>60) Est GFR (Non-Af Amer) 120.9 (>60) BUN/Creatinine Ratio 27.5 H (8-20) Glucose 96 (70-100) mg/dL Calcium 9.2 (8.6-10.3) mg/dL Total Bilirubin 0.20 (0.2-1.0) mg/dL AST 15 (13-39) U/L ALT 18 (7-52) U/L Alkaline Phosphatase 94 (34-104) U/L C-Reactive Protein 3.36 (<8.01) mg/L Total Protein 7.2 (6.4-8.9) g/dL Albumin 4.6 (3.2-5.2) g/dL Globulin 2.6 (2-4) g/dL Albumin/Globulin Ratio 1.8 (1-3) Serum Alcohol < 10 (<10) mg/dL Result Diagrams: 02/03/18 01:39 02/03/18 01:39 Lab Statement: Any lab studies that have been ordered have been reviewed, and results considered in the medical decision making process. - Radiology kub Xray Interpretation: No Acute Changes Radiology Interpretation Completed By: ED Physician - EKG 05:29 Cardiac Rate: NL - 60 BPM EKG Rhythm: Sinus Rhythm
--- NOTE | 2018-02-03 06:07 | RAD ---
EXAM: CT Head Without Intravenous Contrast CLINICAL HISTORY: 52 years old, male; Signs and symptoms; Other: Sz TECHNIQUE: Axial computed tomography images of the head/brain without intravenous contrast. All CT scans at this facility use at least one of these dose optimization techniques: automated exposure control; mA and/or kV adjustment per patient size (includes targeted exams where dose is matched to clinical indication); or iterative reconstruction. COMPARISON: BRAIN WO CT BRAIN WO 11/14/2016 11:32 AM FINDINGS: Brain: There appears to be encephalomalacia in the posterior parietal lobes which is unchanged. 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 No hemorrhage. Ventricles: The posterior aspects of the lateral ventricles are distended and unchanged from prior studies. Bones/joints: Unremarkable. No acute fracture. Soft tissues: Unremarkable. Sinuses: Unremarkable as visualized. No acute sinusitis. Mastoid air cells: Unremarkable as visualized. No mastoid effusion. IMPRESSION: No acute findings. Chronic findings as described above. No significant interval change.
--- NOTE | 2018-02-03 08:11 | CONSULT ---
Subjective Date of Service: 02/03/18 Interval History: The patient is non-verbal and the history was obtained from the [facility] aide at his bedside. She knows him very well. He has clusters of seizures, 4 or 5 in a day about once or twice a month. He is followed by Dr. Jones. The staff at his half-way is supposed to send him to the ED if he has a seizure lasting over 5 minutes. His seizure did NOT last over 5 minutes. The aide confirmed this history with the preparation department supervisor by phone. He had a seizure lasting 15 seconds here and while he was post-ictal was given lorazepam 2 mg IM. He is still sedated from this. Family History: Findings - unknown Social History: Findings - [facility], in [facility] half-way in [place], parents on [place] Past Medical History: Findings - CP, seizures, hs hemorrhoidal banding, chronic constipation Review of Systems - Measurements Intake and Output: Intake and Output Last 24 Hours 02/01/18 02/02/18 02/03/18 02/04/18 06:59 06:59 06:59 06:59 Weight 154 lb Objective Active Medications: Aripiprazole (Abilify Tab*) 10 mg PO QAM BUZZ Benztropine Mesylate (Cogentin Tab*) 1 mg PO QAM BUZZ Calcium Polycarbophil (Fibercon Tab*) 625 mg PO QAM BUZZ Carbamazepine (Tegretol Xr Tab(*)) 400 mg PO TID BUZZ Lorazepam (Ativan Tab(*)) 1 mg PO Q6H PRN PRN Reason: AGITATION - DANGEROUS Non-Formulary Medication (Lamotrigine) 200 mg PO QAM BUZZ Non-Formulary Medication (Lamotrigine) 300 mg PO QPM BUZZ Polyethylene Glycol/Electrolytes (Miralax*) 17 gm PO DAILY BUZZ Triazolam (Halcion Tab*) 0.75 mg PO DAILY PRN PRN Reason: AGITATION Vital Signs - 8 hr 02/03/18 02/03/18 02/03/18 00:29 00:30 00:47 Temperature 97.9 F Pulse Rate 83 79 78 Respiratory 30 18 Rate Blood Pressure 153/88 153/88 (mmHg) O2 Sat by Pulse 97 98 98 Oximetry 02/03/18 02/03/18 02/03/18 04:25 04:30 04:31 Temperature Pulse Rate 58 61 Respiratory 16 Rate Blood Pressure 140/65 (mmHg) O2 Sat by Pulse 99 98 Oximetry 02/03/18 02/03/18 02/03/18 05:13 05:30 05:59 Temperature Pulse Rate 67 60 60 Respiratory 18 16 Rate Blood Pressure 101/59 95/57 (mmHg) O2 Sat by Pulse 93 99 99 Oximetry 02/03/18 02/03/18 02/03/18 06:01 06:30 07:00 Temperature Pulse Rate 61 58 56 Respiratory 15 19 19 Rate Blood Pressure 123/69 107/61 (mmHg) O2 Sat by Pulse 99 100 100 Oximetry 02/03/18 02/03/18 07:01 07:29 Temperature Pulse Rate 56 57 Respiratory 19 18 Rate Blood Pressure 102/61 (mmHg) O2 Sat by Pulse 100 100 Oximetry Oxygen Devices in Use Now: Nasal Cannula Appearance: Sedated, occ moves, supine on ED stretcher. Looks comfortable. Eyes: No Scleral Icterus Respiratory: Symmetrical Chest Expansion and Respiratory Effort, Clear to Auscultation, Clear to Percussion Cardiovascular: NL Sounds; No Murmurs; No JVD, RRR, No Edema, - Abdominal: NL Sounds; No Tenderness; No Distention, No Hepatosplenomegaly, - Extremities: No Edema, No Clubbing, Cyanosis, - Skin: No Rash or Ulcers, No Nodules or Sclerosis, - Neurological: - - sedated. no tremor. WALTER. Eyes closed, no response to verbal stimuli. Result Diagrams: 02/03/18 01:39 02/03/18 01:39 Additional Lab and Data: Lab Results 02/03/18 02/03/18 Range/Units 01:39 01:39 WBC 5.9 (3.5-10.8) 10^3/ul RBC 4.20 (4.00-5.40) 10^6/ul Hgb 14.0 (14.0-18.0) g/dl Hct 41 L (42-52) % MCV 98 H (80-94) fL MCH 33 H (27-31) pg MCHC 34 (31-36) g/dl RDW 13 (10.5-15) % Plt Count 367 (150-450) 10^3/ul MPV 6.4 L (7.4-10.4) um3 Neut % (Auto) 55.4 (38-83) % Lymph % (Auto) 30.2 (25-47) % [place] % (Auto) 12.1 H (0-7) % Eos % (Auto) 2.0 (0-6) % Baso % (Auto) 0.3 (0-2) % Absolute Neuts (auto) 3.3 (1.5-7.7) 10^3/ul Absolute Lymphs (auto) 1.8 (1.0-4.8) 10^3/ul Absolute Monos (auto) 0.7 (0-0.8) 10^3/ul Absolute Eos (auto) 0.1 (0-0.6) 10^3/ul Absolute Basos (auto) 0 (0-0.2) 10^3/ul Absolute Nucleated RBC 0 10^3/ul Nucleated RBC % 0 Sodium 140 (135-145) mmol/L Potassium 4.3 (3.5-5.0) mmol/L Chloride 106 (101-111) mmol/L Carbon Dioxide 30 (22-32) mmol/L Anion Gap 4 (2-11) mmol/L BUN 19 (6-24) mg/dL Creatinine 0.69 (0.67-1.17) mg/dL Est GFR ( Amer) 146.3 (>60) Est GFR (Non-Af Amer) 120.9 (>60) BUN/Creatinine Ratio 27.5 H (8-20) Glucose 96 (70-100) mg/dL Calcium 9.2 (8.6-10.3) mg/dL Total Bilirubin 0.20 (0.2-1.0) mg/dL AST 15 (13-39) U/L ALT 18 (7-52) U/L Alkaline Phosphatase 94 (34-104) U/L C-Reactive Protein 3.36 (<8.01) mg/L Total Protein 7.2 (6.4-8.9) g/dL Albumin 4.6 (3.2-5.2) g/dL Globulin 2.6 (2-4) g/dL Albumin/Globulin Ratio 1.8 (1-3) Serum Alcohol < 10 (<10) mg/dL Assessment/Plan - Billing Plan By Medical Problem: 1. Seizure disorder. Home meds ordered. Patient will remain in ED until he is alert enough to take a meal and his AM meds. [facility] aide can stay until 3 PM to assist. 2. Chronic constipation. Fibercon and PEG usual dose ordered, staff will repeat PEG at his home until he has a BM( their usual tx for this). 3. CP Return to his half-way, fup Dr. Jones, Dr. Selby.
--- NOTE | 2018-02-03 08:29 | RAD ---
Indication: Abdominal pain, constipation. Flat and upright views of the abdomen demonstrates no free air. No dilated loops of bowel are noted. Colon is filled with stool. IMPRESSION: No free air or intestinal obstruction is noted. R0
[2018-02-03 10:40] VITALS: BP 107/61
== END | disposition short-term general hospital (02) ==
LOC: ED 00:18 → MED 07:43 → UNDOADMOB 07:43
DX: R56.9 Unspecified convulsions (principal); I10 Essential (primary) hypertension
CPT/HCPCS: 36415; 70450; 74018; 80053; 80156; 80307; 80320; 81003; 85025; 86140; 96372; 99284; A9270-GY; G0480; J2060; J2250

== ENCOUNTER 2019-03-02 12:27 | Emergency (ER) | payer MEDICARE, MEDICAID ==
[2019-03-02 14:24] LABS: ABS Eosinophils 0.1 10^3/ul (0-0.6); ABS Lymphocytes 1.2 10^3/ul (1.0-4.8); ABS Monocytes 0.4 10^3/ul (0-0.8); ABS Neutrophils 3.5 10^3/ul (1.5-7.7); Eosinophil % 1.9 %; Hematocrit 44 % (42-52); Hemoglobin 15.1 g/dL (14.0-18.0); Lymphocyte % 23.2 %; Mean Corpuscular HGB Conc 34 g/dL (31-36); Mean Corpuscular Hemoglobin 34 pg (27-31); Mean Corpuscular Volume 99 fL (80-94); Mean Platelet Volume 6.3 fL (7.4-10.4); Platelet Count 366 10^3/uL (150-450); Red Blood Count 4.47 10^6 /uL (4.18-5.48); Red Cell Distribution Width 13 % (10-15); White Blood Count 5.4 10^3/uL (3.5-10.8)
[2019-03-02 14:36] LABS: Albumin 4.8 g/dL (3.2-5.2); Albumin/Globulin Ratio 1.5 (1-3); BUN/Creatinine Ratio 31.9 (8-20); Calcium 9.5 mg/dL (8.6-10.3); EGFR African American 138.7 (>60); EGFR Non-African American 114.6 (>60); Globulin 3.2 g/dL (2-4); Potassium 4.3 mmol/L (3.5-5.0); Total Bilirubin 0.3 mg/dL (0.2-1.0)
--- NOTE | 2019-03-02 15:01 | ED ---
Neurological HPI - HPI Summary HPI Summary: 53 year old male presents to the ED accompanied by [facility] staff with the chief complaint of seizure-like activity lasting 20 minutes earlier today. Per [facility] staff, patient usually has cluster seizures one day a month, during which he would get 4-5 30-second long seizures. Today during his seizure-like episode, he was unable to see and his face for bright red. His mood today was normal. Per [facility] staff, he has been unusually aggressive over the last month. PMHx of cerebral palsy, seizure disorder. He took his prescribed Lamotrigine 100mg, Lorazepam 1mg, Aripiprazole 10mg, and Carbamazepine 200mg today. Medications reviewed. Allergies noted. - History of Current Complaint Chief Complaint: EDSeizure Stated Complaint: SEIZURE Time Seen by Provider: 03/02/19 13:55 Hx Obtained From: Family/Director Of Placement Hx From Patient Unobtainable Due To: Altered Mental Status Onset/Duration: Sudden Onset, Started hours ago, Resolved Timing: Intermittent Episodes Lasting: - 1 episode 20 minutes long. Onset Severity: Severe Current Severity: None Seizure Severity: Moderate Number of Seizures: 1 - has history of cluster seizures. Neurological Deficit Location: Generalized Pain Intensity: 0 Character: Visual Changes, Other: - face turned errythmatous - Additional Pertinent History Primary Care Physician: [id number] - Allergy/Home Medications Allergies/Adverse Reactions: Allergies Allergy/AdvReac Type Severity Reaction Status Date / Time Quinolones Allergy See Comment Verified 01/21/18 14:19 sulfamethoxazole Allergy Unknown Verified 03/02/19 14:05 [From Bactrim] Reaction Details trimethoprim [From Bactrim] Allergy Unknown Verified 03/02/19 14:05 Reaction Details Home Medications: Home Medications Bacitracin OINTMENT* 1 applic TOPICAL BID PRN 03/02/19 [History Confirmed ] Calcium Polycarbophil [Fiber Laxative] 625 mg PO QAM PRN 03/02/19 [History Confirmed 03/02/19] Ferrous Gluconate TAB* [Fergon TAB*] 325 mg PO DAILY 03/02/19 [History Confirmed 03/02/19] Lactulose* 30 ml PO BEDTIME PRN 03/02/19 [History Confirmed 03/02/19] Mineral Oil 3 drop BOTH EARS Q3D PRN 03/02/19 [History Confirmed 03/02/19] Multivitamins/Minerals TAB* [Theragran/minerals TAB*] 1 tab PO QAM 03/02/19 [ History Confirmed 03/02/19] QUEtiapine XR TAB* [Seroquel Xr 50 MG TAB*] 150 mg PO BEDTIME 03/02/19 [History Confirmed 03/02/19] carBAMazepine TAB(*) [TEGretol TAB(*)] 400 mg PO TID 03/02/19 [History Confirmed 03/02/19] PMH/Surg Hx/FS Hx/Imm Hx Endocrine/Hematology History: Reports: Hx Anemia - RECENT ANEMIA, BLOOD LOSS DUE TO HEMORRHOIDS, Other Endocrine/Hematological Disorders - ANEMIA Denies: Hx Anticoagulant Therapy Cardiovascular History: Reports: Hx Hypertension, Hx Peripheral Vascular Disease , Other Cardiovascular Problems/Disorders - Raynaud's disease GI History: Reports: Other GI Disorders - chronic constipation and hemorrhoids Musculoskeletal History: Reports: Hx Arthritis - UNSURE, Other Musculoskeletal History - CP, VERY RIGID MOVEMENTS, TREMORS LEFT ARM, needs assist w/stairs Denies: Hx Osteoporosis Sensory History: Reports: Other Sensory Impairments - right eye ptosis Denies: Hx Contacts or Glasses, Hx Hearing Aid Opthamlomology History: Reports: Other Sensory Impairments - right eye ptosis Denies: Hx Contacts or Glasses Neurological History: Reports: Hx Developmental Delay, Hx Nerve Disease - Cerebral Palsy, right eye strabismus, Hx Seizures - tegratol, Other Neuro Impairments/Disorders - CP Psychiatric History: Reports: Hx Bipolar Disorder, Other Psychiatric Issues/ Disorders - 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, PICA - Surgical History Surgery Procedure, Year, and Place: RT HIP; RT FOOT Hx Anesthesia Reactions: No - Immunization History Date of Tetanus Vaccine: Unk Date of Influenza Vaccine: Unk Infectious Disease History: No Infectious Disease History: Reports: Hx Hepatitis - B Denies: Hx Clostridium Difficile, Hx Human Immunodeficiency Virus (HIV), Hx of Known/Suspected MRSA, Hx Shingles, Hx Tuberculosis, Hx Known/Suspected VRE, Hx Known/Suspected VRSA, History Other Infectious Disease, Traveled Outside the [place] in Last 30 Days - Family History Known Family History: Positive: None Negative: Cardiac Disease, Hypertension - Social History Alcohol Use: None Hx Substance Use: No Substance Use Type: Reports: None Hx Tobacco Use: No Smoking Status (MU): Never Smoked Tobacco Have You Smoked in the Last Year: No Review of Systems Positive: Blurred Vision Positive: Other - redness of face during episode Neurological: Other - Seizure-like behavior All Other Systems Reviewed And Are Negative: Yes Physical Exam - Summary Physical Exam Summary: Constitutional: Well-developed, Well-nourished, Alert. (-) Distressed. Patient at mental baseline. Skin: Warm, Dry HENT: Normocephalic; Atraumatic Eyes: Conjunctiva normal Neck: Musculoskeletal ROM normal neck. (-) JVD, (-) Stridor, (-) Tracheal deviation Cardio: Rhythm regular, rate normal, Heart sounds normal; Intact distal pulses. Radial pulses are 2+ and symmetric. (-) Murmur Pulmonary/Chest wall: Effort normal. (-) Respiratory distress, (-) Wheezes, (-) Rales Abd: Soft. (-) Tenderness, (-) Distension, (-) Guarding, (-) Rebound Musculoskeletal: (-) Edema. Freely moving upper extremities. Lymph: (-) Cervical adenopathy Neuro: (-) Alert, Oriented x3, Strength normal, Cranial nerves II-XII are grossly intact. (-) Dysmetria, (-) Nystagmus, (-) Ataxia by finger to nose testing, (-) Sensory deficit. Psych: Mood and affect Normal Triage Information Reviewed: Yes Vital Signs On Initial Exam: Initial Vitals Temp Pulse Resp BP Pulse Ox 97.8 F 76 16 145/83 99 03/02/19 12:28 03/02/19 12:28 03/02/19 12:28 03/02/19 12:28 03/02/19 12:28 Vital Signs Reviewed: Yes Procedures - Sedation Patient Received Moderate/Deep Sedation with Procedure: No Diagnostics - Vital Signs Vital Signs Temp Pulse Resp BP Pulse Ox 03/02/19 12:28 97.8 F 76 16 145/83 99 - Laboratory Lab Results: Lab Results 03/02/19 03/02/19 Range/Units 14:07 14:07 WBC 5.4 (3.5-10.8) 10^3/uL RBC 4.47 (4.18-5.48) 10^6 /uL Hgb 15.1 (14.0-18.0) g/dL Hct 44 (42-52) % MCV 99 H (80-94) fL MCH 34 H (27-31) pg MCHC 34 (31-36) g/dL RDW 13 (10-15) % Plt Count 366 (150-450) 10^3/uL MPV 6.3 L (7.4-10.4) fL Neut % (Auto) 66.2 % Lymph % (Auto) 23.2 % [place] % (Auto) 8.3 % Eos % (Auto) 1.9 % Baso % (Auto) 0.4 % Absolute Neuts (auto) 3.5 (1.5-7.7) 10^3/ul Absolute Lymphs (auto) 1.2 (1.0-4.8) 10^3/ul Absolute Monos (auto) 0.4 (0-0.8) 10^3/ul Absolute Eos (auto) 0.1 (0-0.6) 10^3/ul Absolute Basos (auto) 0.0 (0-0.2) 10^3/ul Absolute Nucleated RBC 0.0 10^3/ul Nucleated RBC % 0.0 Sodium 137 (135-145) mmol/L Potassium 4.3 (3.5-5.0) mmol/L Chloride 103 (101-111) mmol/L Carbon Dioxide 28 (22-32) mmol/L Anion Gap 6 (2-11) mmol/L BUN 23 (6-24) mg/dL Creatinine 0.72 (0.67-1.17) mg/dL Est GFR ( Amer) 138.7 (>60) Est GFR (Non-Af Amer) 114.6 (>60) BUN/Creatinine Ratio 31.9 H (8-20) Glucose 120 H (70-100) mg/dL Calcium 9.5 (8.6-10.3) mg/dL Total Bilirubin 0.30 (0.2-1.0) mg/dL AST 16 (13-39) U/L ALT 24 (7-52) U/L Alkaline Phosphatase 119 H (34-104) U/L Total Protein 8.0 (6.4-8.9) g/dL Albumin 4.8 (3.2-5.2) g/dL Globulin 3.2 (2-4) g/dL Albumin/Globulin Ratio 1.5 (1-3) Carbamazepine Pending Result Diagrams: 03/02/19 14:07 03/02/19 14:07 Lab Statement: Any lab studies that have been ordered have been reviewed, and results considered in the medical decision making process. - EKG 1727 Cardiac Rate: NL EKG Rhythm: Sinus Rhythm Summary of EKG Findings: EKG at 1727 shows NSR at [address] elevation or QVc elevation. An ED physician has reviewed and interpreted this EKG. Course/Dx - Course Course Of Treatment: Patient is here with 20 minutes of focal seizure that resolved. Patient is back to his mental baseline per half-way staff. Patient had blood performed which showed an elevated carbamazepine level. Dr. Llanes was called and he recommended holding the dose tonight discharging home with an increase to his medical bills. He also recommend check an EKG to make sure he did not have any QTC prolongation which patient did not have. Patient is discharged back to his half-way. - Diagnoses Provider Diagnoses: Epilepsy - Physician Notifications Discussed Care Of Patient With: Rony Llanes Time Discussed With Above Provider: 17:08 Instructed by Provider To: Other - Spoke to Dr. Llanes at 1708. He recommended increasing Lamictal intake to 300mg BID. He recommended to not take tegretol tonight and restart it in the morning. He suggested to run an EKG and to discharge home if it looks good. Discharge ED - Sign-Out/Discharge Documenting (check all that apply): Patient Departure - dc - Discharge Plan Condition: Stable Disposition: HOME Prescriptions: lamoTRIgine TAB(*) [LaMICtal TAB(*)] 300 mg PO BID 30 Days #60 tab lamoTRIgine TAB(*) [LaMICtal TAB(*)] 300 mg PO BID 30 Days #60 tab Patient Education Materials: Epilepsy (ED) Referrals: Rony Selby MD [Primary Care Provider] - Rony Llanes MD [Medical Doctor] - Additional Instructions: PLEASE DO NOT TAKE YOUR TEGRETOL TONIGHT YOUR LEVEL WAS HIGH PLEASE RESTART THE TEGRETOL IN THE MORNING PLEASE INCREASE YOUR LAMICTAL TO 3 TABLETS TWICE A DAY RETURN HERE IF YOU HAVE WORSENING SEIZURE OR ANY OTHER CONCERNING SYMPTOMS - Billing Disposition and Condition Condition: STABLE Disposition: Home - Attestation Statements Document Initiated by Scribe: Yes Documenting Scribe: Parveen Mccartney Provider For Whom Scribe is Documenting (Include Credential): Otis Benson MD Scribe Attestation: I, Parveen Mccartney, scribed for Otis Benson MD on 03/02/19 at 1917. Scribe Documentation Reviewed: Yes Provider Attestation: The documentation as recorded by the scribe, Parveen Mccartney accurately reflects the service I personally performed and the decisions made by me, Otis Benson MD Status of Scribe Document: Viewed
[2019-03-02 16:11] LABS: Carbamazepine 15.3 mcg/mL (4.0-12.0)
[2019-03-02 17:59] VITALS: BP 155/93
== END 2019-03-02 17:53 | disposition home or self-care (01) ==
LOC: ED 12:27
DX: G40.909 Epilepsy, unspecified, not intractable, without status epilepticus (principal); G80.9 Cerebral palsy, unspecified; D64.9 Anemia, unspecified; I10 Essential (primary) hypertension; F31.9 Bipolar disorder, unspecified; Z79.899 Other long term (current) drug therapy; Z88.1 Allergy status to other antibiotic agents; Z88.2 Allergy status to sulfonamides
CPT/HCPCS: 36415; 80053; 80156; 80175; 85025; 93005; 99283

== ENCOUNTER 2019-05-08 05:03 | Emergency (ER) | payer MEDICARE, MEDICAID ==
[2019-05-08] MEDS ORDERED: diPHENhydraMINE PO* 50 MG PO ONE (05:11)
[2019-05-08] MEDS ORDERED: Bacitracin OINTMENT* 0.5% 0.5 oz TUBE TOPICAL ONE (05:20)
--- NOTE | 2019-05-08 05:26 | ED ---
Adult Trauma - HPI Summary HPI Summary: 53 y/o male presented to [facility] by [facility] for a fall sustained EMERGENCY SPECIALIST when trying to open a door. Grade Recorder notes that the patient normally has trouble walking and has a previous knee injury. He was found climbing on the ground and then fell onto his head. He now has an abrasion above the right eyebrow and bilateral elbows. Last tetanus shot was 08/18/09. Level 5 Caveat secondary to intellectual disability. - History of Current Complaint Chief Complaint: EDFall Stated Complaint: FALL PER EMS Time Seen by Provider: 05/08/19 05:14 Hx Obtained From: Family/Grade Recorder Hx From Patient Unobtainable Due To: Other - MR Mechanism of Injury: Fall Onset/Duration: Still Present Onset of Pain: Prior to Arrival Current Severity: Mild Pain Intensity: 3 Pain Scale Used: 0-10 Numeric Aggravating Factor(s): Palpation Associated Signs & Symptoms: Positive: Other: - abrasions to right eyebrow and elbows - Allergy/Home Medications Allergies/Adverse Reactions: Allergies Allergy/AdvReac Type Severity Reaction Status Date / Time ciprofloxacin [From Cipro] Allergy Unknown Verified 05/08/19 07:13 Reaction Details lithium Allergy Unknown Verified 05/08/19 07:13 Reaction Details Quinazolinones Allergy Unknown Verified 05/08/19 07:13 Reaction Details Quinolones Allergy See Comment Verified 05/08/19 07:13 sulfamethoxazole Allergy Unknown Verified 05/08/19 07:13 [From Bactrim] Reaction Details trazodone Allergy Unknown Verified 05/08/19 07:13 Reaction Details trimethoprim [From Bactrim] Allergy Unknown Verified 05/08/19 07:13 Reaction Details zolpidem [From Ambien] Allergy Unknown Verified 05/08/19 07:13 Reaction Details Home Medications: Home Medications ARIPiprazole [Abilify] 1 tab PO DAILY 05/08/19 [History Confirmed 05/08/19] Acetaminophen 2 tab PO Q4H PRN 05/08/19 [History Confirmed 05/08/19] Bacitracin Zinc 1 applic TOPICAL BID 05/08/19 [History Confirmed 05/08/19] Calcium Polycarbophil [Fiber Laxative] 625 mg PO DAILY 05/08/19 [History Confirmed 05/08/19] Chlorhexidine MOUTHWASH 0.12%* [Peridex Mouth Wash 0.12%*] 5 ml PO BID 05/08/19 [History Confirmed 05/08/19] Ferrous Gluconate TAB* [Fergon TAB*] 325 mg PO DAILY 05/08/19 [History Confirmed 05/08/19] LORazepam [Ativan 1 MG TAB] 1 mg PO Q6H PRN 05/08/19 [History Confirmed 05/08/19 ] Lactulose 30 ml PO BEDTIME PRN 05/08/19 [History Confirmed 05/08/19] Multivitamin with Iron [One Daily with Iron] 1 tab PO DAILY 05/08/19 [History Confirmed 05/08/19] Polyethylene Glycol 3350 [Miralax] 17 gm PO BID 05/08/19 [History Confirmed ] QUEtiapine XR TAB* [Seroquel Xr 50 MG TAB*] 150 mg PO BEDTIME 05/08/19 [History Confirmed 05/08/19] Sodium Phosphate ADULT ENEMA* [Fleet Enema*] 1 dose AR DAILY PRN 05/08/19 [ History Confirmed 05/08/19] Triazolam 3 tab PO ONCE PRN 05/08/19 [History Confirmed 05/08/19] carBAMazepine [Tegretol] 400 mg PO TID 05/08/19 [History Confirmed 05/08/19] lamoTRIgine [Lamotrigine] 300 mg PO BEDTIME 05/08/19 [History Confirmed 05/08/19 ] lamoTRIgine [Lamotrigine] 300 mg PO DAILY 05/08/19 [History Confirmed 05/08/19] PMH/Surg Hx/FS Hx/Imm Hx Cardiovascular History: Reports: Hx Hypertension Sensory History: Denies: Hx Legally Blind, Hx Deafness Opthamlomology History: Denies: Hx Legally Blind EENT History: Denies: Hx Deafness Neurological History: Reports: Hx Developmental Delay - MR, Hx Seizures - Surgical History Surgical History: Unable to Obtain/Confirm - LEVEL 5 Infectious Disease History: No Infectious Disease History: Denies: Traveled Outside the [place] in Last 30 Days - Family History Known Family History: Positive: Unknown - LEVEL 5 - Social History Alcohol Use: None Hx Tobacco Use: No Review of Systems Positive: Other - abrasions to right eyebrow and elbows Neurological: Other - head injury with fall All Other Systems Reviewed And Are Negative: No - Comments Additional Review of Systems Comments: Level 5 Caveat: secondary to MR Physical Exam - Summary Physical Exam Summary: Constitutional: Well-developed, Well-nourished, Alert, Cooperative Skin: Warm, Dry; abrasions to bilateral elbows, left knee, and superficial laceration to right forehead HENT: Normocephalic. Midface stable Eyes: EOM normal, PERRL Neck: Trachea is midline. No stridor; No JVD; No step off; No posterior cervical spine tenderness Cardio: Rhythm regular, rate normal Heart sounds normal; Intact distal pulses; Radial pulses are 2+ and symmetric. Pulmonary/Chest wall: Effort normal; Breath sounds normal; Equal chest rise; No flail segment; No rib tenderness; No sternal tenderness Abd: Soft, Appearance normal. No distension; No tenderness Musculoskeletal: Full ROM and no tenderness at hips, ankles, shoulders, elbows and knees; No joint swelling; No vertebral body tenderness; No paraspinal tenderness; No step off or deformity of the spine Neuro: Alert, GCS 14. Speaks in 1-word sentences at baseline (per aide) Psych: intermittently agitated Triage Information Reviewed: Yes Vital Signs On Initial Exam: Initial Vitals Temp Pulse Resp BP Pulse Ox 97.6 F 83 20 118/84 98 05/08/19 05:06 05/08/19 05:06 05/08/19 05:06 05/08/19 05:06 05/08/19 05:06 Vital Signs Reviewed: Yes Completion Of Physical Exam Limited Due To: Level 5 - MR - [place] Coma Scale Best Eye Response: 4 - Spontaneous Best Motor Response: 6 - Obeys Commands Best Verbal Response: 4 - Confused Coma Scale Total: 14 Procedures - Sedation Patient Received Moderate/Deep Sedation with Procedure: No Diagnostics - Vital Signs Vital Signs Temp Pulse Resp BP Pulse Ox 05/08/19 05:06 97.6 F 83 20 118/84 98 - Laboratory Result Diagrams: 05/08/19 07:11 Lab Statement: Any lab studies that have been ordered have been reviewed, and results considered in the medical decision making process. - Radiology left knee xr Radiology Interpretation Completed By: ED Physician Summary of Radiographic Findings: No acute Fx. This imaging study has been reviewed and interpreted by the ED physician pending official read. left elbow xr Radiology Interpretation Completed By: ED Physician Summary of Radiographic Findings: No acute Fx. This imaging study has been reviewed and interpreted by the ED physician pending official read. right elbow xr Radiology Interpretation Completed By: ED Physician Summary of Radiographic Findings: No acute Fx. This imaging study has been reviewed and interpreted by the ED physician pending official read. - CT Brain CT CT Interpretation Completed By: Radiologist Summary of CT Findings: IMPRESSION: There is a small subfalcine subdural hematoma noted along the posterior falx. cerebri measuring approximately 3 mm in diameter. This report was reviewed by the ED physician. head CT Interpretation Completed By: Radiologist Summary of CT Findings: IMPRESSION: There is a small subfalcine subdural hematoma noted along the posterior falx. cerebri measuring approximately 3 mm in diameter. This report was reviewed by the ED physician. Re-Evaluation - Re-Evaluation First Eval Re-Evaluation Time: 07:12 Comment: Patient's assembly operator aware of transfer and agrees with plan. Patient given 5 Haldol and 2 of Ativan for severe agitation. Patient attempting to bite staff. Adult Trauma Course/Dx - Course Course Of Treatment: 9-year-old male with a history of intellectual sterility presents after fall [place] primary survey notable for GCS 14, likely secondary to intellectual disability. Secondary survey with abrasions to bilateral elbows , left knee, superficial laceration to the right forehead. CT brain obtained given history of head trauma, visible trauma to the forehead and not reliable neuro exam. CT shows a millimeter subdural hemorrhage. Patient given Keppra, labs obtained. CT C-spine ordered. Plan for neurosurgical consult and likely transfer. - Diagnoses Provider Diagnoses: Subdural hematoma, Fall - Physician Notifications Discussed Care Of Patient With: Transfer Center Time Discussed With Above Provider: 07:10 Instructed by Provider To: Transfer - Patient auto-accepted for transfer to [place] by Dr. Salazar, ED to ED. Reason For Transfer: Specialty available at [facility] but not addictions counselor. - Critical Care Time Critical Care Time: 30-74 min - Upon my evaluation, this patient had a high probability of imminent or life-threatening deterioration due to subdural hematoma which required my direct attention, intervention, and personal management. I have personally provided 35 minutes of critical care time exclusive of time spent on separately billable procedures. Time includes review of laboratory data, radiology results, discussion with consultants, and monitoring for potential decompensation. Interventions were performed as documented above. Discharge ED - Sign-Out/Discharge Documenting (check all that apply): Patient Departure - Patient accepted for transfer to [place] to Dr. Salazar. - Discharge Plan Condition: Stable Disposition: TRANS HIGHER LVL OF CARE FAC Referrals: Rony Selby MD [Primary Care Provider] - - Billing Disposition and Condition Condition: STABLE Disposition: Trans Higher Lvl of Care Fac - Attestation Statements Document Initiated by Nissa: Yes Documenting Scribe: Jing Russ Provider For Whom Nissa is Documenting (Include Credential): Dr. Reji Sanabria MD Scribe Attestation: Jing Galeano scribed for Dr. Reji Sanabria MD on 05/08/19 at 0728. Scribe Documentation Reviewed: Yes Provider Attestation: The documentation as recorded by the Jing kumar accurately reflects the service I personally performed and the decisions made by me, Dr. Reji Sanabria MD Status of Scribe Document: Viewed
[2019-05-08] MEDS ORDERED: Tetan/Diph/Pertus SYR(Tdap)* 0.5 ML SYR(BOOSTRIX) use SYR contains LATEX IM ONE (05:28)
[2019-05-08] MEDS ORDERED: levETIRAcetam 1000MG IVPREMIX* 1,000 MG/100 ML BAG IVPB ONE (06:31)
[2019-05-08] MEDS ORDERED: Haloperidol INJ IV/IM* 5 MG/ML AMP IM ONE (06:35)
[2019-05-08] MEDS ORDERED: LORazepam INJ* 2 MG/ML 1 ML VIAL IM ONE (06:56)
[2019-05-08] MEDS ORDERED: Lorazepam PYXIS KEY PRN (06:56)
[2019-05-08] MEDS ORDERED: Lorazepam PYXIS KEY ONE (06:58)
[2019-05-08 07:26] LABS: ABS Basophils 0.1 10^3/ul (0-0.2); ABS Eosinophils 0.1 10^3/ul (0-0.6); ABS Lymphocytes 1.6 10^3/ul (1.0-4.8); ABS Monocytes 0.7 10^3/ul (0-0.8); ABS Neutrophils 5.3 10^3/ul (1.5-7.7); Eosinophil % 0.9 %; Hematocrit 43 % (42-52); Hemoglobin 14.3 g/dL (14.0-18.0); Lymphocyte % 20.7 %; Mean Corpuscular HGB Conc 33 g/dL (31-36); Mean Corpuscular Hemoglobin 33 pg (27-31); Mean Corpuscular Volume 99 fL (80-94); Mean Platelet Volume 6.5 fL (7.4-10.4); Nucleated Red Blood Cells % 0.1; Platelet Count 374 10^3/uL (150-450); Red Blood Count 4.32 10^6 /uL (4.18-5.48); Red Cell Distribution Width 13 % (10-15); White Blood Count 7.7 10^3/uL (3.5-10.8)
[2019-05-08 07:38] LABS: ALT 22 U/L (7-52); Albumin 4.3 g/dL (3.2-5.2); Albumin/Globulin Ratio 1.3 (1-3); Alkaline Phosphatase 122 U/L (34-104); Blood Urea Nitrogen 28 mg/dL (6-24); CO2 Carbon Dioxide 23 mmol/L (22-32); Calcium 9.2 mg/dL (8.6-10.3); Chloride 107 mmol/L (101-111); EGFR African American 122.8 (>60); EGFR Non-African American 101.5 (>60); Globulin 3.3 g/dL (2-4); Glucose 101 mg/dL (70-100); Sodium 138 mmol/L (135-145); Total Protein 7.6 g/dL (6.4-8.9)
[2019-05-08 08:04] LABS: INR 1.04 (0.82-1.09)
[2019-05-08 08:09] LABS: Anion Gap 8 mmol/L (2-11)
[2019-05-08 08:30] VITALS: BP 99/61
== END 2019-05-08 08:29 | disposition short-term general hospital (02) ==
LOC: ED 05:03 → MERGE 05:03 → ED 08:29
DX: S06.5X9A Traumatic subdural hemorrhage with loss of consciousness of unspecified duration, initial encounter (principal); S50.312A Abrasion of left elbow, initial encounter; S50.311A Abrasion of right elbow, initial encounter; S80.212A Abrasion, left knee, initial encounter; Z23 Encounter for immunization; W18.30XA Fall on same level, unspecified, initial encounter; Y92.9 Unspecified place or not applicable; R62.50 Unspecified lack of expected normal physiological development in childhood; Z79.899 Other long term (current) drug therapy; Z88.1 Allergy status to other antibiotic agents; Z88.2 Allergy status to sulfonamides; Z88.8 Allergy status to other drugs, medicaments and biological substances
CPT/HCPCS: 36415; 70450; 72125; 80053; 85025; 85610; 90471; 90715; 96365; 96372; 99285; A9270-GY; J1630; J1953; J2060

== ENCOUNTER 2019-07-11 16:50 | Emergency (ER) | payer MEDICARE, MEDICAID ==
--- OUTSIDE RECORDS SUMMARY | 2019-07-11 17:34 | XMS REPORT | Continuity of Care Document ---
:1965 External Reference #:[id number] Author Name Jane Cheung MD Address [address] [place] [address] Problems Active Problems Provider Date Raynaud's phenomenon Onset: 12/28/2018 Prediabetes Onset: 12/01/2017 Tubular adenoma of colon Onset: 11/05/2015 Traumatic subdural hematoma Rony Selby MD Onset: 05/09/2019 Note: Apr 2019 Spinal stenosis in cervical region Rony Selby MD Onset: 05/08/2019 Note: mod to severe C5-6, C6-14 Apr 2019 Inactive Problems Adult health examination Onset: 12/28/2018 Inactive: 12/28/2018 Body mass index 25-29 - overweight Onset: 12/28/2018 Inactive: 12/28/2018 Social History Type Date Description Comments Sex Unknown Tobacco Use Start: Unknown Patient has never smoked Smoking Status Reviewed: 05/17/19 Patient has never smoked Allergies, Adverse Reactions, Alerts Active Allergies Reaction Severity Comments Date Anticonvulsant No Reaction Indicated 01/12/2019 Ambien Wired, aggressive Moderate 01/12/2019 Bactrim combative behavior 01/12/2019 [place] No Reaction Indicated 01/12/2019 Trazodone Hydrochloride aggressive Moderate 01/12/2019 Ciprofloxacin 05/17/2019 Quinolones 05/17/2019 Medications Active Medications SIG Qnty Indications Ordering Date Provider Suprep Bowel Prep as directed 1units Unknown 03/05/2019 Kit 17.5-3.13-1.6GM/177M L Solution Desitin Maci twice each 45units Unknown 12/22/2018 13% Cream day prn External Lorazepam 1 3 times a day 30tabs Unknown 11/02/2018 1mg Tablets prn Oral Acetaminophen 2 tabs by mouth Unknown 08/09/2018 325mg every 4 hours as Tablets needed Peg 3350 Oral; 17G (1 510units Unknown 08/08/2018 Powder Capful/20cc) In 8 Oz. Of Fluid po daily then titrate to 2 softstool per day Tab-A-Shereen/Iron Take One Tablet By 30tabs Rony Selby, 04/12/2018 Mouth Every MD Tablets Morning (Supplement) Shingrix Intramuscular; 0.5units Unknown 01/24/2018 50mcg/0.5ML Repeat in >= 2 Suspension Rec months Ferrous Gluconate Oral 30tabs Unknown 01/13/2018 324(37.5Fe) mg Tablets Chlorhexidine Mouth/throat; 473units Unknown 12/26/2017 Gluconate Rinse One 0.12% Teaspoonful (5cc) Solution 2 Times A Day DIP Toothbrush And Ava Every Morning & AT Bedtime Lamotrigine Oral; 3 tabs PM; 3 Unknown 03/24/2017 100mg tabs am Tablets Enema Rectal; Insert 1 266units Unknown 03/22/2017 Enema Rectally as Needed When No Bowel Movement For 3 Days. Notifyrn when used. Abilify 1 tab by mouth Unknown 12/07/2016 15mg Tablets every morning Lactulose 30 ml at bedtime 900units Unknown 10/29/2016 10GM/15ML prn Oral; Hold for Solution loose stools Seroquel XR 1 at bedtime Oral Unknown 07/27/2016 150mg Tablets ER 24HR Bacitracin External; Apply To 28.35units Unknown 11/27/2015 (External) Abrasions 2 Times 500Unit/GM A Day as Needed Ointment Notify RN when used-no more them 5 days in a row Fiber Laxative Take One Tablet By 30tabs Rony Selby, 11/25/2015 625mg Mouth Every MD Tablets Morning With Water (Constipation) Carbamazepine Oral; 2 Tabs By 180tabs Unknown 07/04/2014 200mg Mouth Three Times Tablets Daily Triazolam 3 prn Oral; Take 3tabs Unknown 07/31/2013 0.25mg 3 tabs prior to Tablets dental appointment Calcium 500 +D 1 tab by mouth Unknown every day [id number] Tablets Mineral Oil 3 drops to ears Unknown Oil every day as needed for 3 days if impacted with cerumen. rn to flush on day 4. Medications Administered in Office Medication SIG Qnty Indications Ordering Provider Date TB Intradermal Test Unknown 08/19/2010 Injection TB Intradermal Test Unknown 08/18/2009 Injection TB Intradermal Test Unknown 08/12/2008 Injection TB Intradermal Test Unknown 07/19/2007 Injection TB Intradermal Test Unknown 07/07/2006 Injection TB Intradermal Test Unknown 07/06/2005 Injection Immunizations CPT Code Status Date Vaccine Lot # [id number] Given 03/08/2019 Flu < 65 years [id number] Given 12/28/2018 Shingrix - Shingles vaccine, Herpes Zoster 42371 Given 09/01/2018 MMR Vaccine 22324 Given 01/24/2018 Flu < 65 years 32833 Given 02/15/2017 Flu < 65 years 92003 Given 04/13/2016 Flu < 65 years 94067 Given 02/12/2016 Flu < 65 years 66615 Given 02/12/2015 Flu < 65 years 93395 Given 02/20/2014 Flu < 65 years 94352 Given 04/09/2011 Flu < 65 years 49538 Given 08/18/2009 Tdap - Boostrix/Adacel Vital Signs Date Vital Result Comment 05/17/2019 2:11pm BP Systolic 136 mmHg BP Diastolic 84 mmHg Heart Rate 68 /min Body Temperature 97.1 F O2 % BldC Oximetry 99 % 03/08/2019 8:54am BP Systolic 112 mmHg BP Diastolic 72 mmHg Weight 175.00 lb per staff at home Heart Rate 75 /min Body Temperature 97.5 F O2 % BldC Oximetry 96 % Results Test Acquired Date Facility Test Result H/L Range Note CBC Auto 05/08/2019 [facility] White Blood 7.7 10^3/uL Normal 3.5-10.[address] [place] [address] [phone] Red Blood Count 4.32 10^6/uL Normal 4.18-5.48 Hemoglobin 14.3 g/dL Normal 14.0-18.0 Hematocrit 43 % Normal 42-52 Mean Corpuscular Volume 99 fL High 80-94 Mean Corpuscular Hemoglobin 33 pg High 27-31 Mean Corpuscular HGB Conc 33 g/dL Normal 31-36 Red Cell Distribution Width 13 % Normal 10-15 Platelet Count 374 10^3/uL Normal 150-450 Mean Platelet Volume 6.5 fL Low 7.4-10.4 Abs Neutrophils 5.3 10^3/uL Normal 1.5-7.7 Abs Lymphocytes 1.6 10^3/uL Normal 1.0-4.8 Abs Monocytes 0.7 10^3/uL Normal 0-0.8 Abs Eosinophils 0.1 10^3/uL Normal 0-0.6 Abs Basophils 0.1 10^3/uL Normal 0-0.2 Abs Nucleated RBC 0.0 10^3/uL Granulocyte % 68.2 % Lymphocyte % 20.7 % Monocyte % 9.4 % Eosinophil % 0.9 % Basophil % 0.8 % Nucleated Red Blood Cells % 0.1 INR/Protime 05/08/2019 [facility] INR 1.04 Normal 0.82-1.[address] [place] [address] [phone] Comp Metabolic 05/08/2019 [facility] Sodium 138 mmol/L Normal 135-[address] [place] [address] [phone] Chloride 107 mmol/L Normal 101-111 Co2 Carbon Dioxide 23 mmol/L Normal 22-32 Glucose 101 mg/dL High 70-100 2 Blood Urea Nitrogen 28 mg/dL High 6-24 3 Creatinine 0.80 mg/dL Normal 0.67-1.17 4 BUN/Creatinine Ratio 35.0 High 8-20 Calcium 9.2 mg/dL Normal 8.6-10.3 5 Total Protein 7.6 g/dL Normal 6.4-8.9 6 Albumin 4.3 g/dL Normal 3.2-5.2 7 Globulin 3.3 g/dL Normal 2-4 Albumin/Globulin Ratio 1.3 Normal 1-3 Total Bilirubin 0.30 mg/dL Normal 0.2-1.0 8 Alkaline Phosphatase 122 U/L High 34-104 9 Alt 22 U/L Normal 7-52 10 Egfr Non- 101.5 >60 Egfr 122.8 >60 11 Potassium TNP mmol/L 3.5-5.0 12 Anion Gap 8 mmol/L Normal 2-11 Ast TNP U/L 13-39 13 CBC Auto 03/02/2019 [facility] White Blood 5.4 10^3/uL Normal 3.5-10.[address] [place] [address] [phone] Red Blood Count 4.47 10^6/uL Normal 4.18-5.48 Hemoglobin 15.1 g/dL Normal 14.0-18.0 Hematocrit 44 % Normal 42-52 Mean Corpuscular Volume 99 fL High 80-94 Mean Corpuscular Hemoglobin 34 pg High 27-31 Mean Corpuscular HGB Conc 34 g/dL Normal 31-36 Red Cell Distribution Width 13 % Normal 10-15 Platelet Count 366 10^3/uL Normal 150-450 Mean Platelet Volume 6.3 fL Low 7.4-10.4 Abs Neutrophils 3.5 10^3/uL Normal 1.5-7.7 Abs Lymphocytes 1.2 10^3/uL Normal 1.0-4.8 Abs Monocytes 0.4 10^3/uL Normal 0-0.8 Abs Eosinophils 0.1 10^3/uL Normal 0-0.6 Abs Basophils 0.0 10^3/uL Normal 0-0.2 Abs Nucleated RBC 0.0 10^3/uL Granulocyte % 66.2 % Lymphocyte % 23.2 % Monocyte % 8.3 % Eosinophil % 1.9 % Basophil % 0.4 % Nucleated Red Blood Cells % 0.0 Comp Metabolic 03/02/2019 [facility] Sodium 137 mmol/L Normal 135-[address] [place] [address] [phone] Potassium 4.3 mmol/L Normal 3.5-5.0 Chloride 103 mmol/L Normal 101-111 Co2 Carbon Dioxide 28 mmol/L Normal 22-32 Anion Gap 6 mmol/L Normal 2-11 Glucose 120 mg/dL High 70-100 Blood Urea Nitrogen 23 mg/dL Normal 6-24 Creatinine 0.72 mg/dL Normal 0.67-1.17 BUN/Creatinine Ratio 31.9 High 8-20 Calcium 9.5 mg/dL Normal 8.6-10.3 Total Protein 8.0 g/dL Normal 6.4-8.9 Albumin 4.8 g/dL Normal 3.2-5.2 Globulin 3.2 g/dL Normal 2-4 Albumin/Globulin Ratio 1.5 Normal 1-3 Total Bilirubin 0.30 mg/dL Normal 0.2-1.0 Alkaline Phosphatase 119 U/L High 34-104 Alt 24 U/L Normal 7-52 Ast 16 U/L Normal 13-39 Egfr Non- 114.6 >60 Egfr 138.7 >60 14 Laboratory 03/02/2019 [facility] Carbamazepine 15.3 Critical 4.0-12.0 15 test finding [address] g/[place] [address] [phone] Lamotrigine 6.1 g/mL 2.5 - 15.0 16 CBC Auto 01/26/2019 [facility] White Blood 5.5 10^3/uL Normal 3.5-10.8 [address] [place] [address] [phone] Red Blood Count 4.26 10^6/uL Normal 4.18-5.48 Hemoglobin 14.7 g/dL Normal 14.0-18.0 Hematocrit 42 % Normal 42-52 Mean Corpuscular Volume 99 fL High 80-94 Mean Corpuscular Hemoglobin 34 pg High 27-31 Mean Corpuscular HGB Conc 35 g/dL Normal 31-36 Red Cell Distribution Width 14 % Normal 10-15 Platelet Count 362 10^3/uL Normal 150-450 Mean Platelet Volume 6.9 fL Low 7.4-10.4 Abs Neutrophils 2.8 10^3/uL Normal 1.5-7.7 Abs Lymphocytes 1.7 10^3/uL Normal 1.0-4.8 Abs Monocytes 0.7 10^3/uL Normal 0-0.8 Abs Eosinophils 0.2 10^3/uL Normal 0-0.6 Abs Basophils 0.0 10^3/uL Normal 0-0.2 Abs Nucleated RBC 0.0 10^3/uL Granulocyte % 51.6 % Lymphocyte % 31.3 % Monocyte % 13.5 % Eosinophil % 3.2 % Basophil % 0.4 % Nucleated Red Blood Cells % 0.1 Comp Metabolic 01/26/2019 [facility] Sodium 139 mmol/L Normal 135-[address] [place] [address] [phone] Potassium 4.7 mmol/L Normal 3.5-5.0 Chloride 106 mmol/L Normal 101-111 Co2 Carbon Dioxide 26 mmol/L Normal 22-32 Anion Gap 7 mmol/L Normal 2-11 Glucose 89 mg/dL Normal 70-100 Blood Urea Nitrogen 25 mg/dL High 6-24 Creatinine 0.78 mg/dL Normal 0.67-1.17 BUN/Creatinine Ratio 32.1 High 8-20 Calcium 9.1 mg/dL Normal 8.6-10.3 Total Protein 6.6 g/dL Normal 6.4-8.9 Albumin 4.5 g/dL Normal 3.2-5.2 Globulin 2.1 g/dL Normal 2-4 Albumin/Globulin Ratio 2.1 Normal 1-3 Total Bilirubin 0.20 mg/dL Normal 0.2-1.0 Alkaline Phosphatase 112 U/L High 34-104 Alt 26 U/L Normal 7-52 Ast 16 U/L Normal 13-39 Egfr Non- 104.5 >60 Egfr 126.5 >60 18 Laboratory test 01/26/2019 [facility] Vitamin D 21.4 ng/mL Normal 20-[address](Oh) [place] [address] [phone] Lamotrigine 4.5 g/mL 2.5 - 15.0 20 Carbamazepine 01/26/2019 [facility] Free 2.4 1.0-3.0 21 Free & Total [address] Carbamazepine g/[place] [address] [phone] Total Carbamazepine 10.4 g/mL 4.0 - 12.0 Carbamazepine-10,11-Epoxide 2.8 g/mL 22 Insurance 12/28/2018 N2N/CCD Import [facility] VaccineGivenToday 12/28/2018 N2N/CCD Import VaccineGivenToday X Zoster Shingrix 12/28/2018 N2N/CCD Import Zoster Shingrix CFM Shingrix Rosaline 12/28/2018 N2N/CCD Import Rosaline 12/28/18 1 Standard intensity warfarin therapeutic range: 2.0-3.0 High intensity warfarin therapeutic range: 2.5-3.5 2 Specimen hemolyzed. Result may not be valid. 3 Specimen hemolyzed. Result may not be valid. 4 Specimen hemolyzed. Result may not be valid. 5 Specimen hemolyzed. Result may not be valid. 6 Specimen hemolyzed. Result may not be valid. 7 Specimen hemolyzed. Result may not be valid. 8 Specimen hemolyzed. Result may not be valid. 9 Specimen hemolyzed. Result may not be valid. 10 Specimen hemolyzed. Result may not be valid. 11 Because ethnic data is not always readily available, this report includes an eGFR for both -Americans and non- Americans. The National Kidney Disease Education Program (NKDEP) does not endorse the use of the MDRD equation for patients that are not between the ages of 18 and 70, are , have extremes of body size, muscle mass, or nutritional status, or are non- or non-. According to the National Kidney Foundation, irrespective of diagnosis, the stage of the disease is based on the level of kidney function: Stage Description GFR(mL/min/1.73 m(2)) 1 Kidney damage with normal or decreased GFR 90 2 Kidney damage with mild decrease in GFR 60-89 3 Moderate decrease in GFR 30-59 4 Severe decrease in GFR 15-29 5 Kidney failure <15 (or dialysis) 12 Specimen Hemolyzed. Result may not be valid. Unable to report test result due to hemolysis. 13 Unable to report test result due to hemolysis. 14 Because ethnic data is not always readily available, this report includes an eGFR for both -Americans and non- Americans. The National Kidney Disease Education Program (NKDEP) does not endorse the use of the MDRD equation for patients that are not between the ages of 18 and 70, are , have extremes of body size, muscle mass, or nutritional status, or are non- or non-. According to the National Kidney Foundation, irrespective of diagnosis, the stage of the disease is based on the level of kidney function: Stage Description GFR(mL/min/1.73 m(2)) 1 Kidney damage with normal or decreased GFR 90 2 Kidney damage with mild decrease in GFR 60-89 3 Moderate decrease in GFR 30-59 4 Severe decrease in GFR 15-29 5 Kidney failure <15 (or dialysis) 15 Critical Result CAR:15.3 Called to [id number] at: 16:09:09 by:[id number] Read back by:[email or web address] 16 ADDITIONAL INFORMATION This test was developed and its performance characteristics determined by [facility] in a manner consistent with CLIA requirements. This test has not been cleared or approved by the U.S. Food and Drug Administration. Test Performed by: [facility] [place] [address] Drum Operator: Johnny Ceballos M.D. Ph.D.; CLIA# [id number] 17 [id number] Because ethnic data is not always readily available, this report includes an eGFR for both -Americans and non- Americans. The National Kidney Disease Education Program (NKDEP) does not endorse the use of the MDRD equation for patients that are not between the ages of 18 and 70, are , have extremes of body size, muscle mass, or nutritional status, or are non- or non-. According to the National Kidney Foundation, irrespective of diagnosis, the stage of the disease is based on the level of kidney function: Stage Description GFR(mL/min/1.73 m(2)) 1 Kidney damage with normal or decreased GFR 90 2 Kidney damage with mild decrease in GFR 60-89 3 Moderate decrease in GFR 30-59 4 Severe decrease in GFR 15-29 5 Kidney failure <15 (or dialysis) 19 Total 25-Hydroxyvitamin D2 and D3 (25-OH-VitD) <10 ng/mL (severe deficiency) 10-19 ng/mL (mild to moderate deficiency) 20-50 ng/mL (optimum levels) 51-80 ng/mL (increased risk of hypercalciuria) >80 ng/mL (toxicity possible) 20 ADDITIONAL INFORMATION This test was developed and its performance characteristics determined by [facility] in a manner consistent with CLIA requirements. This test has not been cleared or approved by the U.S. Food and Drug Administration. Test Performed by: [facility] [place] [address] Drum Operator: Johnny Ceballos M.D. Ph.D.; CLIA# [id number] 21 ADDITIONAL INFORMATION This test has been modified from the silk screen processor's instructions. Its performance characteristics were determined by [facility] in a manner consistent with CLIA requirements. This test has not been cleared or approved by the U.S. Food and Drug Administration. Test Performed by: [facility] [place] [address] [place] [address] Drum Operator: Johnny Ceballos M.D. Ph.D.; CLIA# [id number] Test Performed by: [facility] - [facility] [address] [place] [address] Drum Operator: Johnny Ceballos M.D. Ph.D.; CLIA# [id number] 22 REFERENCE VALUE 0.4-4.0 (Toxic > or = 8.0) ADDITIONAL INFORMATION This test was developed and its performance characteristics determined by [facility] in a manner consistent with CLIA requirements. This test has not been cleared or approved by the U.S. Food and Drug Administration. Procedures Description No Information Available Medical Devices Description No Information Available Encounters Type Date Location Provider Dx Diagnosis Office Visit 05/17/2019 [facility] Mateo Cheung MD S06.5x0D Traum subdr hem w/o 1:45p loss of consciousness, subs Office Visit 03/08/2019 [facility] DON Pacheco G40.89 Other seizures 9:00a Z23 Encounter for immunization Assessments Date Code Description Provider 05/17/2019 S06.5x0D Traumatic subdural hemorrhage without loss of Jane Cheung MD consciousness, subsequent encounter 03/08/2019 G40.89 Other seizures DON Griffiths 03/08/2019 Z23 Encounter for immunization DON Griffiths Plan of Treatment 05/17/2019 - GREGORIO Schwartz06.5x0D Traumatic subdural hemorrhage without loss of consciousness, subsequent encounterComments:currently we only have the patient's ER records as well as his patient discharge information available. Request sent to [facility] to get complete discharge summary. We will plan to do the repeat CT scan in 1 month and send the results to his neurosurgeon in [place]. Based on what his aids are telling me we can determine whether he actually needs to have an in person follow-up appointment or whether review of this scan is sufficient once we have the results and have it sent up to them. Depending if he does need an in person evaluation from neurosurgery may well pursue getting this locally rather than a transfer up to [place] given the amount of resources and coordination it takes to get Steven to appointments.No current symptoms or exam findings to suggest need for any additional treatment beyond the monitoring is requested.Discussed returning for follow-up if any new concerns develop, or if his hospital discharge summary suggests additional needs.AllComments:Reviewed medication list and hospital documents available at this time.Going forward will plan for repeat head CT at the end of May. Will send results to [place] neurosurgery to review once completed.Continue monitoring for symptoms as described by [place] neurosurgery. Continue medications asdirected.Followup as needed. Functional Status Description No Information Available Mental Status Description No Information Available Referrals Description No Information Available
[2019-07-11 17:49] VITALS: BP 154/93
--- NOTE | 2019-07-11 18:01 | UC ---
Lower Extremity/Ankle HPI - HPI Summary HPI Summary: 53 y developmentally delayed [facility] resident, brought by staff for assessment of warm left swollen foot extending to the mid calf. This was first noted by afternoon staff at around 3 pm, and one of the assistants states that the foot was its more typical gabbi color last evening at bedtime. He does not have a fever or tachycardia. Non-diabetic. Normal appetite and no significant changes in behavior. He is usually transported in a wheelchair. No hx of recent trauma. - History of Current Complaint Chief Complaint: UCLowerExtremity Stated Complaint: FOOT IRRITATION Time Seen by Provider: 07/11/19 17:38 Hx Obtained From: Family/Floor Covering Installer - here with caregivers from [facility]. Onset/Duration: Gradual Onset, Lasting Hours Severity Initially: Moderate Severity Currently: Moderate Pain Intensity: 4 Alleviating Factor(s): Rest - Risk Factors Gout Risk Factors: Age Over 40 DVT Risk Factors: Negative Septic Arthritis Risk Factor: Negative - Allergies/Home Medications Allergies/Adverse Reactions: Allergies Allergy/AdvReac Type Severity Reaction Status Date / Time ciprofloxacin [From Cipro] Allergy Unknown Verified 07/11/19 17:49 Reaction Details lithium Allergy Unknown Verified 07/11/19 17:49 Reaction Details Quinazolinones Allergy Unknown Verified 07/11/19 17:49 Reaction Details Quinolones Allergy See Comment Verified 07/11/19 17:49 sulfamethoxazole Allergy Unknown Verified 07/11/19 17:49 [From Bactrim] Reaction Details trazodone Allergy Unknown Verified 07/11/19 17:49 Reaction Details trimethoprim [From Bactrim] Allergy Unknown Verified 07/11/19 17:49 Reaction Details zolpidem [From Ambien] Allergy Unknown Verified 07/11/19 17:49 Reaction Details Home Medications: Home Medications Triazolam TAB* [Halcion TAB*] 0.75 mg PO DAILY PRN #0 MDD 0.75 11/29/16 [Rx Confirmed 07/11/19] Polyethylene Glycol 3350* [Miralax*] 17 gm PO BID 02/03/18 [History Confirmed ] Bacitracin OINTMENT* 1 applic TOPICAL BID PRN 03/02/19 [History Confirmed ] Ferrous Gluconate TAB* [Fergon TAB*] 325 mg PO DAILY 03/02/19 [History Confirmed 07/11/19] Lactulose* 30 ml PO BEDTIME PRN 03/02/19 [History Confirmed 07/11/19] Mineral Oil 3 drop BOTH EARS Q3D PRN 03/02/19 [History Confirmed 07/11/19] carBAMazepine TAB(*) [TEGretol TAB(*)] 400 mg PO TID 03/02/19 [History Confirmed 07/11/19] lamoTRIgine TAB(*) [LaMICtal TAB(*)] 300 mg PO BID 30 Days #60 tab 03/02/19 [Rx Confirmed 07/11/19] ARIPiprazole [Abilify] 1 tab PO DAILY 05/08/19 [History Confirmed 07/11/19] Chlorhexidine MOUTHWASH 0.12%* [Peridex Mouth Wash 0.12%*] 5 ml PO BID 05/08/19 [History Confirmed 07/11/19] Multivitamin with Iron [One Daily with Iron] 1 tab PO DAILY 05/08/19 [History Confirmed 07/11/19] Bisacodyl EC TAB* [Dulcolax EC TAB*] 5 mg PO DAILY PRN 05/15/19 [History Confirmed 07/11/19] Calcium Polycarbophil [Fiber Lax] 625 mg PO DAILY PRN 05/15/19 [History Confirmed 07/11/19] Econazole Nitrate 15 gm TP DAILY PRN 05/15/19 [History Confirmed 07/11/19] QUEtiapine TAB* [Seroquel 100 MG *] 100 mg PO BEDTIME 05/15/19 [History Confirmed 07/11/19] Sodium Phosphate ADULT ENEMA* [Fleet Enema*] 1 enema RI DAILY PRN 05/15/19 [ History Confirmed 07/11/19] cephALEXin [Keflex] 500 mg PO QID #28 capsule 07/11/19 [Rx] PMH/Surg Hx/FS Hx/Imm Hx - Additional Past Medical History Additional PMH: developmentally delayed. Neurological History: Seizures Other History Of: Negative For: Anticoagulant Therapy - Surgical History Surgical History: Yes Surgery Procedure, Year, and Place: RT HIP; RT FOOT - Family History Known Family History: Positive: None, Unknown - --lives in [facility], hx not available. 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 Alcohol Use: None Substance Use Type: None Smoking Status (MU): Never Smoked Tobacco Have You Smoked in the Last Year: No - Immunization History Most Recent Influenza Vaccination: 2015 Most Recent Pneumonia Vaccination: Fall 2015 Vaccination Up to Date: Yes Review of Systems All Other Systems Reviewed And Are Negative: Yes Constitutional: Negative: Fever, Chills Skin: Positive: Other - swollen, warm left foot Eyes: Positive: Negative ENT: Positive: Negative Respiratory: Positive: Negative Cardiovascular: Positive: Negative Gastrointestinal: Positive: Negative Genitourinary: Positive: Negative Motor: Positive: Negative Neurovascular: Positive: Negative Musculoskeletal: Positive: Negative Neurological/Mental Status: Positive: Negative Psychological: Positive: Anxious - combative with exam Is Patient Immunocompromised?: No Physical Exam Triage Information Reviewed: Yes Appearance: Well-Nourished, Pain Distress - cannot assess, appears to have pain with palpation of LLE, but also reports pain with other touch. Vital Signs: Initial Vital Signs Temp 97.7 F 07/11/19 17:35 Pulse 80 07/11/19 17:35 Resp 17 07/11/19 17:35 BP 154/93 07/11/19 17:35 Pulse Ox 98 07/11/19 17:35 Vital Signs Reviewed: Yes ENT: Positive: Normal ENT inspection Respiratory: Positive: Lungs clear, Normal breath sounds Cardiovascular Exam: Other - could not hear heart sounds--very resistant to exam even with caregiver assessment. Cardiovascular: Positive: RRR Abdomen Description: Positive: Nontender Musculoskeletal Exam: Other - left knee normal Neurological: Positive: Alert, Muscle Tone Normal Skin Exam: Other - left leg is warm, swollen and erythematous from the toes to the mid calf. Calf is soft. No lymphangitis. Nails are cracked and has small fissures in feet to serve as entry points for infection. Redness and swelling extend about 15 cm proximal to ankle--margins marked with pen. Skin: Positive: Other - Right foot is edematous, cool and purple. Lower Extremity Course/Dx - Course Course Of Treatment: Discussed that clinical dx is cellulitis, and he does not appear septic. Lack of timing for onset is bothersome as it makes it difficult to determine rate of spread. He is afebrile. IM rocephin given with need for close follow up. Advised needs reassessment tomorrow by PMD. If there is extension of erythema, must proceed directly to the ER for evaluation. There is no drainage from any site to sample. - Differential Dx/Diagnosis Differential Diagnosis/HQI/PQRI: Cellulitis, Gout Provider Diagnosis: Cellulitis of left foot Discharge ED - Sign-Out/Discharge Documenting (check all that apply): Patient Departure All imaging exams completed and their final reports reviewed: No Studies - Discharge Plan Condition: Stable Disposition: HOME Prescriptions: cephALEXin [Keflex] 500 mg PO QID #28 capsule Patient Education Materials: Cellulitis (ED) Referrals: Rony Selby MD [Primary Care Provider] - Additional Instructions: Rocephin was given tonight to begin treatment of cellulitis. The margins of the wound were marked on the calf. The are MUST be checked at midnight and 6 am. If there is any extension of the redness more than 2 cm beyond the margins, please proceed to the emergency room for evaluation and treatment. Begin cephalexin 500mg tomorrow at noon, and give a total of 3 doses on 2018. Please arrange a re-check tomorrow with Dr. Selby. If Jabari is refusing doses of cephalexin, he will need to be re-evaluated. - Billing Disposition and Condition Condition: STABLE Disposition: Home
[2019-07-11] MEDS ORDERED: cefTRIAXone VIAL(*) 1,000 MG VIAL IM ONE (18:10)
[2019-07-11] MEDS ORDERED: Lidocaine 1% MPF ** 5 ML VIAL ONE (18:46)
== END 2019-07-11 18:52 | disposition home or self-care (01) ==
LOC: UCEAST 16:50
DX: L03.116 Cellulitis of left lower limb (principal); Z88.1 Allergy status to other antibiotic agents; Z88.8 Allergy status to other drugs, medicaments and biological substances; Z88.2 Allergy status to sulfonamides
CPT/HCPCS: 96372; 99212; G0463; J0696

== ENCOUNTER 2020-11-30 09:40 | Inpatient (IN) ==
[2020-11-30] MEDS ORDERED: Lactated Ringers 1000 ml BAG 1,000 ML IV ONE (10:00)
[2020-11-30 10:48] LABS: ABS Eosinophils 0.1 10^3/ul (0-0.6); ABS Lymphocytes 0.9 10^3/ul (1.0-4.8); ABS Monocytes 0.4 10^3/ul (0-0.8); ABS Neutrophils 1.7 10^3/ul (1.5-7.7); Eosinophil % 1.7 %; Hematocrit 42 % (42-52); Hemoglobin 14.4 g/dL (14.0-18.0); Lymphocyte % 30.1 %; Mean Corpuscular HGB Conc 34 g/dL (31-36); Mean Corpuscular Hemoglobin 34 pg (27-31); Mean Corpuscular Volume 100 fL (80-94); Mean Platelet Volume 7.1 fL (7.4-10.4); Platelet Count 328 10^3/uL (150-450); Red Blood Count 4.21 10^6 /uL (4.18-5.48); Red Cell Distribution Width 14 % (10-15); White Blood Count 3.1 10^3/uL (3.5-10.8)
[2020-11-30 10:52] LABS: Activated Partial Thrombo Time 42.4 seconds (26.0-38.0); INR 1.03 (0.86-1.15)
[2020-11-30 11:00] LABS: Albumin 4.4 g/dL (3.2-5.2); Albumin/Globulin Ratio 1.5 (1-3); C Reactive Protein 13.77 mg/L (<8.01); Calcium 10.1 mg/dL (8.6-10.3); EGFR African American 121.9 (>60); EGFR Non-African American 100.7 (>60); Potassium 4.1 mmol/L (3.5-5.0); Total Bilirubin 0.2 mg/dL (0.2-1.0); Total Protein 7.4 g/dL (6.4-8.9)
[2020-11-30 11:58] LABS: TSH Ultra Thyroid Stim Horm 2.39 mcIU/mL (0.34-5.60)
[2020-11-30 12:01] LABS: Free T4 0.69 ng/dL (0.61-1.12)
[2020-11-30] MEDS ORDERED: cefTRIAXone 1 gm/50 mL NS BAG 1 GM/50 ML BAG IV ONE (13:34)
[2020-11-30] MEDS ORDERED: Azithromycin 500 mg/250 ml NS 500 MG/250 ML BAG IVPB ONE (13:34)
[2020-11-30 14:06] LABS: Magnesium 1.9 mg/dL (1.9-2.7); Phosphorus 3.9 mg/dL (2.5-5.0)
[2020-11-30] MEDS ORDERED: cefTRIAXone 1 gm/50 mL NS BAG 1 GM/50 ML BAG IVPB SCH (15:26)
[2020-11-30 15:39] LABS: Carbamazepine 14.5 mcg/mL (4.0-12.0)
[2020-11-30] MEDS ORDERED: Zinc Oxide 40% (TOPICAL) TUBE TOPICAL PRN (15:45)
[2020-11-30 16:04] LABS: Urine Appearance Clear; Urine Bilirubin Negative (Negative); Urine Blood Negative (Negative); Urine Color Yellow; Urine Glucose Negative (Negative); Urine Ketones Negative (Negative); Urine Nitrite Negative (Negative); Urine Protein Negative (Negative); Urine Specific Gravity 1.017 (1.002-1.030); Urine Urobilinogen Negative (Negative)
[2020-11-30] MEDS: Heparin 5000 UNITS/ML 1 mL VIAL SUBCUT SCH (22:36)
[2020-11-30] MEDS: Polyethylene Glycol 3350 17 GM PACKET PO SCH ×3 (22:37→23:51)
[2020-11-30] MEDS: NS 0.9% 1000 ml BAG 1,000 ML IV SCH (22:37)
[2020-11-30] MEDS: CMCS: Lamotrigine XR 300 mg TAB (NF) PO SCH ×3 (23:29→23:49)
[2020-12-01 06:28] LABS: ABS Lymphocytes 1.1 10^3/ul (1.0-4.8); ABS Monocytes 0.5 10^3/ul (0-0.8); ABS Neutrophils 2.3 10^3/ul (1.5-7.7); Eosinophil % 1.1 %; Hematocrit 38 % (42-52); Hemoglobin 12.8 g/dL (14.0-18.0); Lymphocyte % 28.5 %; Mean Corpuscular HGB Conc 34 g/dL (31-36); Mean Corpuscular Hemoglobin 34 pg (27-31); Mean Corpuscular Volume 101 fL (80-94); Mean Platelet Volume 7.2 fL (7.4-10.4); Nucleated Red Blood Cells % 0.1; Platelet Count 296 10^3/uL (150-450); Red Blood Count 3.76 10^6 /uL (4.18-5.48); Red Cell Distribution Width 14 % (10-15); White Blood Count 3.9 10^3/uL (3.5-10.8)
[2020-12-01 06:36] LABS: Calcium 9.2 mg/dL (8.6-10.3); Carbamazepine 7.7 mcg/mL (4.0-12.0); EGFR Non-African American 82.6 (>60); Potassium 4.2 mmol/L (3.5-5.0)
[2020-12-01] MEDS: CMCS: Lamotrigine XR 300 mg TAB (NF) PO SCH (09:13)
[2020-12-01] MEDS: Calcium Polycarbophil 625mg TB PO SCH (09:13)
[2020-12-01] MEDS: Polyethylene Glycol 3350 17 GM PACKET PO SCH ×4 (09:15→23:12)
[2020-12-01] MEDS: Heparin 5000 UNITS/ML 1 mL VIAL SUBCUT SCH ×2 (09:17→22:56)
[2020-12-01] MEDS: NS 0.9% 1000 ml BAG 1,000 ML IV SCH ×2 (09:19→20:27)
[2020-12-01] MEDS: cefTRIAXone 1 gm/50 mL NS BAG 1 GM/50 ML BAG IVPB SCH (15:15)
[2020-12-02] MEDS: NS 0.9% 1000 ml BAG 1,000 ML IV SCH (06:16)
[2020-12-02 06:40] LABS: Anion Gap 6 mmol/L (2-11); Blood Urea Nitrogen 22 mg/dL (6-24); CO2 Carbon Dioxide 27 mmol/L (22-32); Calcium 8.9 mg/dL (8.6-10.3); Chloride 111 mmol/L (101-111); EGFR African American 121.9 (>60); EGFR Non-African American 100.7 (>60); Glucose 89 mg/dL (70-100); Potassium 4.5 mmol/L (3.5-5.0); Sodium 144 mmol/L (135-145)
[2020-12-02] MEDS: Heparin 5000 UNITS/ML 1 mL VIAL SUBCUT SCH ×2 (08:19→20:24)
[2020-12-02] MEDS: Calcium Polycarbophil 625mg TB PO SCH (08:20)
[2020-12-02] MEDS: Polyethylene Glycol 3350 17 GM PACKET PO SCH ×2 (08:20→20:25)
[2020-12-02] MEDS ORDERED: Sodium Phosphate ADULT ENEMA 133 ML BTL PR ONE (14:26)
[2020-12-02] MEDS: cefTRIAXone 1 gm/50 mL NS BAG 1 GM/50 ML BAG IVPB SCH (14:43)
[2020-12-03] MEDS: Heparin 5000 UNITS/ML 1 mL VIAL SUBCUT SCH ×2 (09:15→21:57)
[2020-12-03] MEDS: Calcium Polycarbophil 625mg TB PO SCH (09:19)
[2020-12-03] MEDS ORDERED: Lorazepam PYXIS KEY PRN ×2 (09:56→10:58)
[2020-12-03] MEDS ORDERED: LORazepam 2 mg VIAL 1 ml IV PUSH ONE ×2 (10:00→10:58)
[2020-12-03] MEDS: Polyethylene Glycol 3350 17 GM PACKET PO SCH ×2 (11:08→22:26)
[2020-12-03] MEDS: cefTRIAXone 1 gm/50 mL NS BAG 1 GM/50 ML BAG IVPB SCH (15:32)
[2020-12-04 05:51] LABS: ABS Eosinophils 0.1 10^3/ul (0-0.6); ABS Lymphocytes 1.4 10^3/ul (1.0-4.8); ABS Monocytes 0.7 10^3/ul (0-0.8); ABS Neutrophils 2.3 10^3/ul (1.5-7.7); Eosinophil % 2.1 %; Hematocrit 37 % (42-52); Hemoglobin 12.3 g/dL (14.0-18.0); Lymphocyte % 30.3 %; Mean Corpuscular HGB Conc 33 g/dL (31-36); Mean Corpuscular Hemoglobin 34 pg (27-31); Mean Corpuscular Volume 102 fL (80-94); Mean Platelet Volume 7.7 fL (7.4-10.4); Nucleated Red Blood Cells % 0.1; Platelet Count 286 10^3/uL (150-450); Red Blood Count 3.64 10^6 /uL (4.18-5.48); Red Cell Distribution Width 14 % (10-15); White Blood Count 4.5 10^3/uL (3.5-10.8)
[2020-12-04 06:15] LABS: C Reactive Protein 36.82 mg/L (<8.01); EGFR African American 139.9 (>60); EGFR Non-African American 115.6 (>60); Potassium 4.4 mmol/L (3.5-5.0)
[2020-12-04 08:28] VITALS: BP 128/72
[2020-12-04] MEDS: Calcium Polycarbophil 625mg TB PO SCH (09:18)
[2020-12-04] MEDS: Heparin 5000 UNITS/ML 1 mL VIAL SUBCUT SCH (09:18)
[2020-12-04] MEDS: Polyethylene Glycol 3350 17 GM PACKET PO SCH (09:19)
[2020-12-04 12:47] LABS: Folate > 20.00 ng/mL (5.90-24.80)
== END 2020-12-04 12:30 | disposition home or self-care (01) | DRG 868 ==
LOC: ED 09:40 → MED 15:24
PROVIDERS: ADMIT Hospitalist; ATTEND Hospitalist